=== PATIENT | female | born 1960 | race Caucasian/White ===

== ENCOUNTER 2020-01-10 08:14 | Outpatient (REF) | payer BC, SELFPAY ==
--- NOTE | 2020-01-10 09:00 | XR_ITS ---
EXAMINATION: XR CHEST CLINICAL INFORMATION: Dyspnea. COMPARISON: None TECHNIQUE: 2 views of the chest were obtained. FINDINGS: The lungs are clear. The heart and mediastinal structures are unremarkable. Mild thoracic dextroscoliosis is noted. XR/XR chest 2V IMPRESSION: No acute cardiopulmonary process.
[2020-01-10 09:35] LABS: MANUAL DIFF FLAG NO
[2020-01-10 09:43] LABS: Basophils Absolute Auto 0.1 X10*3/uL (0.0-0.2); Eosinophils Absolute Auto 0.1 X10*3/uL (0.0-0.4); Hematocrit 46.3 % (37-47); Hemoglobin 15.2 g/dl (12.0-16.0); Imm Gran Abs Auto 0.01 X10*3/uL (0.00-0.03); Imm Gran Pct Auto 0.2 % (0.0-0.4); Lymphocytes Percent Auto 38.8 % (20-40); Mean Corpuscular HGB Conc 32.8 g/dl (31.0-35.0); Mean Corpuscular Hemoglobin 28.7 pg (27.0-33.0); Mean Corpuscular Volume 87.5 fL (80-98); Mean Platelet Volume 11.5 fL (9.4-12.3); Monocytes Absolute Auto 0.3 X10*3/uL (0.1-1.2); Monocytes Percent Auto 6.4 % (2-11); Neutrophils Absolute Auto 2.6 X10*3/uL (2.0-8.3); Neutrophils Percent Auto 51.6 % (45-73); Platelet Count 189 X10*3/uL (160-400); Red Blood Count 5.29 X10*6/uL (4.20-5.50); Red Cell Distribution Width 12.8 % (11.0-16.0)
[2020-01-10 10:06] LABS: Alanine Aminotransferase 18 U/L (0-31); Albumin Level 4.8 g/dL (3.5-5.0); Alkaline Phosphatase 79 U/L (39-117); Anion Gap 11 (12-20); Aspartate Amino Transferase 19 U/L (5-31); B Type Natriuretic Peptide 26 pg/mL (<100); Blood Urea Nitrogen 14 mg/dL (9-16); Calcium 9.2 mg/dL (8.4-10.2); Carbon Dioxide 29 mmol/L (22-29); Chloride 104 mmol/L (96-108); Cholesterol 213 mg/dL; Estimated Glomerular Filt Rate > 60; Glucose Fasting 87 mg/dL (60-99); HDL Cholesterol 73 mg/dL; LDL Cholesterol Calculated 119 mg/dl; Potassium 4.5 mmol/l (3.3-5.1); Sodium 139 mmol/L (135-145); Triglycerides 106 mg/dL
[2020-01-10 10:29] LABS: TSH reflex Free T4 2.52 mIU/mL (0.32-4.0)
[2020-01-10 10:52] LABS: Glucose Urine UA NEG (NEG); Leukocyte Esterase Urine NEG (NEG); Nitrite Urine NEG (NEG); Specific Gravity - Urine 1.015 (1.005-1.025); Urine Blood NEG (NEG); Urine Ketones NEG (NEG); Urine Protein NEG (NEG-TRACE)
[2020-01-10 10:57] LABS: Appearance Urine CLEAR; Color Urine YELLOW
== END 2020-01-10 08:15 | disposition home or self-care (01) ==
LOC: HO.LAB 08:14
PROVIDERS: PCP Internal Medicine; Visit Provider Internal Medicine
DX: R06.00 Dyspnea, unspecified (principal); E78.00 Pure hypercholesterolemia, unspecified
CPT/HCPCS: 36415; 71046; 80053; 80061; 81003; 83880; 84443; 85025

== ENCOUNTER 2020-02-03 07:58 | Outpatient (REF) | payer BC, SELFPAY ==
--- NOTE | 2020-02-03 | PFT_ITS ---
Forced vital capacity, FEV1, PJS55-01 are all normal. MVV is slightly decreased. After bronchodilator therapy, there is no significant change. Total lung capacity and residual volume are normal. Diffusion capacity normal. CONCLUSION: Normal pulmonary function test. MD MARCO Del Valle/JAYA / [id number]
== END 2020-02-03 07:59 | disposition home or self-care (01) ==
LOC: HO.RESP 07:58
PROVIDERS: PCP Internal Medicine; Visit Provider Internal Medicine
DX: R06.00 Dyspnea, unspecified (principal)
CPT/HCPCS: 94060; 94727; 94729

== ENCOUNTER 2020-03-18 15:21 | Outpatient (REF) | payer BC, SELFPAY ==
[2020-03-18 18:11] LABS: Alanine Aminotransferase 19 U/L (0-31); Albumin Level 4.7 g/dL (3.5-5.0); Alkaline Phosphatase 79 U/L (39-117); Anion Gap 13 (12-20); Aspartate Amino Transferase 19 U/L (5-31); Bilirubin Total 0.7 mg/dL (0.0-1.0); Blood Urea Nitrogen 13 mg/dL (9-16); Carbon Dioxide 29 mmol/L (22-29); Chloride 101 mmol/L (96-108); Cholesterol 203 mg/dL; Estimated Glomerular Filt Rate > 60; Glucose Fasting 91 mg/dL (60-99); HDL Cholesterol 70 mg/dL; LDL Cholesterol Calculated 111 mg/dl; Potassium 4.3 mmol/l (3.3-5.1); Sodium 139 mmol/L (135-145); Total Protein 6.9 g/dL (6.5-8.0); Triglycerides 111 mg/dL
== END 2020-03-18 15:22 | disposition home or self-care (01) ==
LOC: HO.LAB 15:21
PROVIDERS: PCP Internal Medicine; Visit Provider Internal Medicine Pulmonary Disease
DX: R06.00 Dyspnea, unspecified (principal); E78.00 Pure hypercholesterolemia, unspecified; Z87.891 Personal history of nicotine dependence
CPT/HCPCS: 36415; 80053; 80061; 82785; 86003

== ENCOUNTER 2020-03-26 08:45 | Outpatient (REF) | payer BC, SELFPAY ==
--- NOTE | 2020-03-26 17:40 | PFT_ITS ---
SPIROMETRY BEFORE METHACHOLINE CHALLENGE TEST: Shows FEV1 of 90% of predicted at 2.64 L, FVC 94% of predicted at 3.58 L. FEV1 to FVC ratio of 0.74. There has been no bronchodilator response. METHACHOLINE CHALLENGE TEST: No significant decrease in FEV1 with administration of full range of methacholine concentration. IMPRESSION: Normal methacholine challenge test. MD COLLETTE Herr/JAYA / [id number]
== END 2020-03-26 08:46 | disposition home or self-care (01) ==
LOC: HO.RESP 08:45
PROVIDERS: PCP Internal Medicine; Visit Provider Internal Medicine Pulmonary Disease
DX: R06.00 Dyspnea, unspecified (principal)
CPT/HCPCS: 94070; J7674

== ENCOUNTER → 2020-04-03 09:07 | Outpatient (BNVA) | payer BC, SELFPAY | PROVIDERS: PCP Internal Medicine; Visit Provider Internal Medicine Pulmonary Disease ==

== ENCOUNTER 2020-05-27 08:38 | Outpatient (REF) | payer BC, SELFPAY ==
[2020-05-27 09:42] LABS: MANUAL DIFF FLAG NO
[2020-05-27 09:48] LABS: Basophils Absolute Auto 0.1 X10*3/uL (0.0-0.2); Basophils Percent Auto 0.9 % (0-2); Eosinophils Absolute Auto 0.1 X10*3/uL (0.0-0.4); Eosinophils Percent Auto 1.8 % (0-4); Hematocrit 45.9 % (37-47); Hemoglobin 14.4 g/dl (12.0-16.0); Imm Gran Abs Auto 0.01 X10*3/uL (0.00-0.03); Imm Gran Pct Auto 0.2 % (0.0-0.4); Lymphocytes Absolute Auto 2.1 X10*3/uL (1.2-4.9); Lymphocytes Percent Auto 38.5 % (20-40); Mean Corpuscular HGB Conc 31.4 g/dl (31.0-35.0); Mean Corpuscular Hemoglobin 27.6 pg (27.0-33.0); Mean Corpuscular Volume 88.1 fL (80-98); Mean Platelet Volume 11.2 fL (9.4-12.3); Monocytes Absolute Auto 0.5 X10*3/uL (0.1-1.2); Monocytes Percent Auto 8.9 % (2-11); Neutrophils Absolute Auto 2.7 X10*3/uL (2.0-8.3); Neutrophils Percent Auto 49.7 % (45-73); Platelet Count 196 X10*3/uL (160-400); Red Blood Count 5.21 X10*6/uL (4.20-5.50); Red Cell Distribution Width 12.9 % (11.0-16.0); White Blood Count 5.5 X10*3/uL (4.8-10.8)
[2020-05-27 10:10] LABS: Alanine Aminotransferase 18 U/L (0-31); Albumin Level 4.6 g/dL (3.5-5.0); Alkaline Phosphatase 88 U/L (39-117); Anion Gap 14 (12-20); Aspartate Amino Transferase 21 U/L (5-31); Bilirubin Total 1.1 mg/dL (0.0-1.0); Blood Urea Nitrogen 12 mg/dL (9-16); Calcium 9.4 mg/dL (8.4-10.2); Carbon Dioxide 29 mmol/L (22-29); Chloride 105 mmol/L (96-108); Cholesterol 213 mg/dL; Estimated Glomerular Filt Rate 57; Glucose Fasting 97 mg/dL (60-99); HDL Cholesterol 66 mg/dL; LDL Cholesterol Calculated 124 mg/dl; Potassium 4.6 mmol/L (3.3-5.1); Sodium 143 mmol/L (135-145); Total Protein 6.8 g/dL (6.5-8.0); Triglycerides 117 mg/dL
[2020-05-27 10:33] LABS: TSH reflex Free T4 2.74 uIU/mL (0.32-4.0)
== END 2020-05-27 08:39 | disposition home or self-care (01) ==
LOC: HO.LAB 08:38
PROVIDERS: PCP Internal Medicine; Visit Provider Internal Medicine
DX: R06.00 Dyspnea, unspecified (principal); E78.00 Pure hypercholesterolemia, unspecified
CPT/HCPCS: 36415; 80053; 80061; 84443; 85025

== ENCOUNTER 2020-10-01 07:26 | Outpatient (REF) | payer BC, SELFPAY ==
[2020-10-01 09:37] LABS: Alanine Aminotransferase 17 U/L (0-31); Albumin Level 4.5 g/dL (3.5-5.0); Alkaline Phosphatase 106 U/L (39-117); Anion Gap 13 (12-20); Aspartate Amino Transferase 20 U/L (5-31); Bilirubin Total 0.9 mg/dL (0.0-1.0); Blood Urea Nitrogen 12 mg/dL (9-16); Calcium 9.6 mg/dL (8.4-10.2); Carbon Dioxide 29 mmol/L (22-29); Chloride 107 mmol/L (96-108); Cholesterol 210 mg/dL; Estimated Glomerular Filt Rate > 60; Glucose Fasting 91 mg/dL (60-99); HDL Cholesterol 73 mg/dL; LDL Cholesterol Calculated 122 mg/dl; Potassium 4.7 mmol/L (3.3-5.1); Sodium 144 mmol/L (135-145); Total Protein 6.9 g/dL (6.5-8.0); Triglycerides 76 mg/dL
[2020-10-01 09:58] LABS: TSH reflex Free T4 5.03 uIU/mL (0.32-4.0)
[2020-10-01 10:48] LABS: Free T4 (Free Thyroxine) 1.03 ng/dL (0.71-1.85)
== END 2020-10-01 07:27 | disposition home or self-care (01) ==
LOC: HO.LAB 07:26
PROVIDERS: PCP Internal Medicine; Visit Provider Internal Medicine
DX: E78.00 Pure hypercholesterolemia, unspecified (principal)
CPT/HCPCS: 36415; 80053; 80061; 84439; 84443

== ENCOUNTER → 2020-11-26 13:36 | Outpatient (BNVA) | payer BC, SELFPAY | PROVIDERS: Visit Provider Advanced Practice Midwife ==

== ENCOUNTER 2021-01-07 15:52 | Outpatient (REF) | payer BC, SELFPAY ==
--- NOTE | ~2021-01-07 | MM_ITS ---
EXAMINATION: MM SCREENING DIGITAL BREAST TOMOSYNTHESIS, BILATERAL CLINICAL INFORMATION: Screening. Asymptomatic. The lifetime risk of breast cancer based on the Tyrer-Cuzick Model is 14.3%. COMPARISON: Mammography: April 30, 2018 and studies dating back to November 08, 2011 TECHNIQUE: Digital breast tomosynthesis is performed in both the craniocaudal and mediolateral oblique views along with computer-aided detection (CAD). Synthesized 2D images are generated from the tomosynthesis. FINDINGS: The breasts are heterogeneously dense, which may obscure small masses (ACR BI-RADS breast composition Category c). There are no significant masses, abnormal calcifications, or other abnormalities. MM/MM tomosynthesis screening BI IMPRESSION: There are no significant changes from prior study. ASSESSMENT: BI-RADS 1: Negative RECOMMENDATION: Routine annual mammography screening. This patient's information was entered into a reminder system with a target due date for their next mammogram.
== END 2021-01-07 15:53 | disposition home or self-care (01) ==
LOC: HO.MAMMO 15:52
PROVIDERS: Visit Provider Internal Medicine
DX: Z12.31 Encounter for screening mammogram for malignant neoplasm of breast (principal)
CPT/HCPCS: 77063; 77067

== ENCOUNTER 2021-02-02 11:38 | Outpatient (REF) | payer BC, SELFPAY ==
[2021-02-02 12:42] LABS: Influenza A PCR NEGATIVE (Negative); Influenza B PCR NEGATIVE (Negative); Resp Syncy Virus RNA Qual PCR NEGATIVE (Negative); SARS COV2 PCR INHOUSE NEGATIVE (Negative)
== END 2021-02-02 11:39 | disposition home or self-care (01) ==
LOC: HO.LNP 11:38
PROVIDERS: Visit Provider Hospitalist
DX: R06.00 Dyspnea, unspecified (principal); J98.8 Other specified respiratory disorders; B97.89 Other viral agents as the cause of diseases classified elsewhere; Z20.822 Contact with and (suspected) exposure to COVID-19
CPT/HCPCS: 0241U

== ENCOUNTER 2021-02-26 07:54 | Outpatient (REF) | payer BC, SELFPAY ==
[2021-02-26 08:06] LABS: MANUAL DIFF FLAG NO
[2021-02-26 08:08] LABS: Basophils Absolute Auto 0.1 X10*3/uL (0.0-0.2); Basophils Percent Auto 1.2 % (0-2); Eosinophils Absolute Auto 0.2 X10*3/uL (0.0-0.4); Eosinophils Percent Auto 3.5 % (0-4); Hematocrit 45.6 % (37.0-47.0); Hemoglobin 14.8 g/dl (12.0-16.0); Imm Gran Abs Auto 0.01 X10*3/uL (0.00-0.03); Imm Gran Pct Auto 0.2 % (0.0-0.4); Lymphocytes Absolute Auto 2.4 X10*3/uL (1.2-4.9); Mean Corpuscular HGB Conc 32.5 g/dl (31.0-35.0); Mean Corpuscular Hemoglobin 28.1 pg (27.0-33.0); Mean Corpuscular Volume 86.5 fL (80.0-98.0); Mean Platelet Volume 10.6 fL (9.4-12.3); Monocytes Absolute Auto 0.4 X10*3/uL (0.1-1.2); Monocytes Percent Auto 6.6 % (2-11); Neutrophils Absolute Auto 2.7 x10*3/uL (2.0-8.3); Neutrophils Percent Auto 46.5 % (45-73); Platelet Count 193 X10*3/uL (160-400); Red Blood Count 5.27 X10*6/uL (4.20-5.50); Red Cell Distribution Width 13.4 % (11.0-16.0); White Blood Count 5.7 X10*3/uL (4.8-10.8)
[2021-02-26 08:27] LABS: Alanine Aminotransferase 18 U/L (0-31); Albumin Level 4.6 g/dL (3.5-5.0); Alkaline Phosphatase 100 U/L (39-117); Anion Gap 12 (12-20); Aspartate Amino Transferase 20 U/L (5-31); Bilirubin Total 1.3 mg/dL (0.0-1.0); Blood Urea Nitrogen 16 mg/dL (9-16); Calcium 9.7 mg/dL (8.4-10.2); Carbon Dioxide 28 mmol/L (22-29); Chloride 104 mmol/L (96-108); Cholesterol 285 mg/dL; Estimated Glomerular Filt Rate > 60; Glucose Fasting 83 mg/dL (60-99); HDL Cholesterol 77 mg/dL; LDL Cholesterol Calculated 191 mg/dl; Potassium 4.2 mmol/L (3.3-5.1); Sodium 140 mmol/L (135-145); Total Protein 6.9 g/dL (6.5-8.0); Triglycerides 89 mg/dL
[2021-02-26 08:46] LABS: TSH reflex Free T4 5.16 uIU/mL (0.32-4.0)
[2021-02-26 09:37] LABS: Free T4 (Free Thyroxine) 1.08 ng/dL (0.71-1.85)
[2021-03-01 16:26] LABS: Homocysteine 11.2 umol/L (<10.4)
== END 2021-02-26 07:55 | disposition home or self-care (01) ==
LOC: HO.LAB 07:54
PROVIDERS: PCP Internal Medicine; Visit Provider Internal Medicine
DX: E78.00 Pure hypercholesterolemia, unspecified (principal); J30.9 Allergic rhinitis, unspecified
CPT/HCPCS: 36415; 80053; 80061; 83090; 84439; 84443; 85025

== ENCOUNTER 2021-03-25 12:36 | Outpatient (REF) | payer BC, SELFPAY ==
--- NOTE | ~2021-03-25 | XR_ITS ---
EXAMINATION: XR KNEE, LEFT XR KNEE STANDING, BILATERAL CLINICAL INFORMATION: Pain. COMPARISON: None TECHNIQUE: Standing AP view of both knees and lateral and sunrise view of the left knee. FINDINGS: LEFT KNEE: Bone alignment is normal. No fracture or dislocation is seen. There are small osteophytes at the medial femorotibial joint. Joint spaces are otherwise normal. There is no joint effusion. There is a small soft tissue calcification projecting over the lateral patellar retinaculum. Standing AP view of the right knee is normal. XR/XR knee standing BI IMPRESSION: Left knee: Small osteophytes at the medial femorotibial joint. Small soft tissue calcification projecting over the lateral patellar retinaculum. Normal AP standing view of the right knee.
--- NOTE | ~2021-03-25 | XR_ITS ---
EXAMINATION: XR KNEE, LEFT XR KNEE STANDING, BILATERAL CLINICAL INFORMATION: Pain. COMPARISON: None TECHNIQUE: Standing AP view of both knees and lateral and sunrise view of the left knee. FINDINGS: LEFT KNEE: Bone alignment is normal. No fracture or dislocation is seen. There are small osteophytes at the medial femorotibial joint. Joint spaces are otherwise normal. There is no joint effusion. There is a small soft tissue calcification projecting over the lateral patellar retinaculum. Standing AP view of the right knee is normal. XR/XR knee LT 2V IMPRESSION: Left knee: Small osteophytes at the medial femorotibial joint. Small soft tissue calcification projecting over the lateral patellar retinaculum. Normal AP standing view of the right knee.
== END 2021-03-25 12:37 | disposition home or self-care (01) ==
LOC: HO.HOSX 12:36
PROVIDERS: Visit Provider Physician Assistant
DX: M25.562 Pain in left knee (principal); M17.12 Unilateral primary osteoarthritis, left knee; E78.00 Pure hypercholesterolemia, unspecified; Z87.891 Personal history of nicotine dependence; Z88.8 Allergy status to other drugs, medicaments and biological substances
CPT/HCPCS: 20610; 73560; 73565; J1040

== ENCOUNTER 2021-04-26 11:25 | Outpatient (REF) | payer BC, SELFPAY | END 2021-04-26 11:26 | disposition home or self-care (01) | LOC: HO.LNP 11:25 | PROVIDERS: Visit Provider Family Medicine | DX: R51.9 Headache, unspecified (principal); Z20.822 Contact with and (suspected) exposure to COVID-19 | CPT/HCPCS: U0003; U0005 ==

== ENCOUNTER 2021-06-29 08:06 | Outpatient (REF) | payer BC, SELFPAY ==
[2021-06-29 08:24] LABS: MANUAL DIFF FLAG NO
[2021-06-29 08:53] LABS: Basophils Absolute Auto 0.1 X10*3/uL (0.0-0.2); Basophils Percent Auto 1.2 % (0-2); Eosinophils Absolute Auto 0.1 X10*3/uL (0.0-0.4); Eosinophils Percent Auto 2.3 % (0-4); Hematocrit 43.5 % (37.0-47.0); Hemoglobin 13.9 g/dl (12.0-16.0); Imm Gran Abs Auto 0.01 X10*3/uL (0.00-0.03); Imm Gran Pct Auto 0.2 % (0.0-0.4); Lymphocytes Absolute Auto 2.1 X10*3/uL (1.2-4.9); Lymphocytes Percent Auto 37.2 % (20-40); Mean Corpuscular Volume 87.7 fL (80.0-98.0); Mean Platelet Volume 11.1 fL (9.4-12.3); Monocytes Absolute Auto 0.4 X10*3/uL (0.1-1.2); Monocytes Percent Auto 6.7 % (2-11); Neutrophils Percent Auto 52.4 % (45-73); Platelet Count 176 X10*3/uL (160-400); Red Blood Count 4.96 X10*6/uL (4.20-5.50); Red Cell Distribution Width 13.8 % (11.0-16.0); White Blood Count 5.6 X10*3/uL (4.8-10.8)
[2021-06-29 09:29] LABS: Alanine Aminotransferase 15 U/L (0-31); Albumin Level 4.4 g/dL (3.5-5.0); Alkaline Phosphatase 79 U/L (39-117); Anion Gap 13 (12-20); Aspartate Amino Transferase 19 U/L (5-31); Bilirubin Total 1.2 mg/dL (0.0-1.0); Blood Urea Nitrogen 11 mg/dL (9-16); Calcium 9.7 mg/dL (8.4-10.2); Carbon Dioxide 28 mmol/L (22-29); Chloride 106 mmol/L (96-108); Cholesterol 223 mg/dL; Estimated Glomerular Filt Rate > 60; Glucose Fasting 90 mg/dL (60-99); HDL Cholesterol 76 mg/dL; LDL Cholesterol Calculated 125 mg/dl; Potassium 4.5 mmol/L (3.3-5.1); Sodium 142 mmol/L (135-145); Total Protein 6.7 g/dL (6.5-8.0); Triglycerides 112 mg/dL
[2021-06-29 10:01] LABS: Free T4 (Free Thyroxine) 0.93 ng/dL (0.71-1.85); Thyroid Stimulating Hormone 3.11 uIU/mL (0.32-4.0)
== END 2021-06-29 08:07 | disposition home or self-care (01) ==
LOC: HO.LAB 08:06
PROVIDERS: PCP Internal Medicine; Visit Provider Internal Medicine
DX: E78.00 Pure hypercholesterolemia, unspecified (principal); R79.89 Other specified abnormal findings of blood chemistry; E55.9 Vitamin D deficiency, unspecified; I10 Essential (primary) hypertension
CPT/HCPCS: 36415; 80053; 80061; 82306; 84439; 84443; 85025

== ENCOUNTER 2021-08-12 07:12 | Outpatient (REF) | payer BC, SELFPAY ==
--- NOTE | ~2021-08-12 | XR_ITS ---
EXAMINATION: XR KNEE, RIGHT CLINICAL INFORMATION: Right knee pain COMPARISON: None TECHNIQUE: Four views of the right knee. FINDINGS: Lateral and sunrise views reveal mild loss of patellofemoral compartment joint space with minimal suprapatellar joint effusion. No loose bodies, bony erosive changes or acute fractures seen. XR/XR knee RT 2V IMPRESSION: Mild degenerative changes patellofemoral compartment. No visible acute fracture or dislocation seen.
== END 2021-08-12 07:13 | disposition home or self-care (01) ==
LOC: HO.HOSX 07:12
PROVIDERS: Visit Provider Physician Assistant
DX: M17.0 Bilateral primary osteoarthritis of knee (principal)
CPT/HCPCS: 20610; 73560; J1040

== ENCOUNTER 2022-01-13 15:47 | Outpatient (REF) | payer BC, SELFPAY ==
--- NOTE | ~2022-01-13 | MM_ITS ---
EXAMINATION: MM SCREENING DIGITAL BREAST TOMOSYNTHESIS, BILATERAL CLINICAL INFORMATION: Screening. Asymptomatic. The lifetime risk of breast cancer based on the Tyrer-Cuzick Model is 14.1%. COMPARISON: Mammography: July 07, 2020 and studies dating back to August 04, 2015 TECHNIQUE: Digital breast tomosynthesis is performed in both the craniocaudal and mediolateral oblique views along with computer-aided detection (CAD). Synthesized 2D images are generated from the tomosynthesis. FINDINGS: The breasts are heterogeneously dense, which may obscure small masses (ACR BI-RADS breast composition Category c). There are no new significant masses, abnormal calcifications, or other abnormalities. MM/MM tomosynthesis screening BI IMPRESSION: No significant changes from prior exam. ASSESSMENT: BI-RADS 1: Negative RECOMMENDATION: Routine annual mammography screening. This patient's information was entered into a reminder system with a target due date for their next mammogram.
== END 2022-01-13 15:48 | disposition home or self-care (01) ==
LOC: HO.MAMMO 15:47
PROVIDERS: PCP Internal Medicine; Visit Provider Internal Medicine
DX: Z12.31 Encounter for screening mammogram for malignant neoplasm of breast (principal)
CPT/HCPCS: 77063; 77067

== ENCOUNTER 2022-03-16 08:04 | Outpatient (REF) | payer BC, SELFPAY ==
[2022-03-16 09:32] LABS: Alanine Aminotransferase 15 U/L (0-31); Albumin Level 4.5 g/dL (3.5-5.0); Alkaline Phosphatase 84 U/L (39-117); Anion Gap 12 (12-20); Aspartate Amino Transferase 18 U/L (5-31); Blood Urea Nitrogen 12 mg/dL (9-16); Calcium 9.6 mg/dL (8.4-10.2); Carbon Dioxide 29 mmol/L (22-29); Chloride 106 mmol/L (96-108); Cholesterol 220 mg/dL; Estimated Glomerular Filt Rate > 60; Glucose Fasting 95 mg/dL (60-99); HDL Cholesterol 70 mg/dL; LDL Cholesterol Calculated 129 mg/dl; Potassium 4.1 mmol/L (3.3-5.1); Sodium 143 mmol/L (135-145); Total Protein 6.7 g/dL (6.5-8.0); Triglycerides 105 mg/dL
[2022-03-16 09:50] LABS: Free T4 (Free Thyroxine) 0.91 ng/dL (0.71-1.85); Thyroid Stimulating Hormone 5.44 uIU/mL (0.32-4.0); Vitamin D 25-OH Total 33.3 ng/mL (>30)
== END 2022-03-16 08:05 | disposition home or self-care (01) ==
LOC: HO.LAB 08:04
PROVIDERS: PCP Internal Medicine; Visit Provider Internal Medicine
DX: E03.9 Hypothyroidism, unspecified (principal); E78.00 Pure hypercholesterolemia, unspecified; E55.9 Vitamin D deficiency, unspecified
CPT/HCPCS: 36415; 80053; 80061; 82306; 84439; 84443

== ENCOUNTER → 2022-04-01 08:24 | Outpatient (BNVA) | payer BC, SELFPAY | PROVIDERS: PCP Internal Medicine; Visit Provider Physician Assistant | DX: M17.12 Unilateral primary osteoarthritis, left knee (principal); M17.11 Unilateral primary osteoarthritis, right knee | CPT/HCPCS: 20610; J1040 ==

== ENCOUNTER 2022-07-20 07:49 | Outpatient (REF) | payer BC, SELFPAY ==
[2022-07-20 08:01] LABS: MANUAL DIFF FLAG NO
[2022-07-20 08:20] LABS: Basophils Absolute Auto 0.1 X10*3/uL (0.0-0.2); Basophils Percent Auto 1.3 % (0-2); Eosinophils Absolute Auto 0.1 X10*3/uL (0.0-0.4); Eosinophils Percent Auto 1.4 % (0-4); Hematocrit 43.6 % (37.0-47.0); Hemoglobin 14.3 g/dl (12.0-16.0); Imm Gran Abs Auto 0.01 X10*3/uL (0.00-0.03); Imm Gran Pct Auto 0.2 % (0.0-0.4); Lymphocytes Absolute Auto 2.3 X10*3/uL (1.2-4.9); Lymphocytes Percent Auto 41.7 % (20-40); Mean Corpuscular HGB Conc 32.8 g/dl (31.0-35.0); Mean Corpuscular Hemoglobin 28.8 pg (27.0-33.0); Mean Corpuscular Volume 87.9 fL (80.0-98.0); Mean Platelet Volume 11.3 fL (9.4-12.3); Monocytes Absolute Auto 0.4 X10*3/uL (0.1-1.2); Monocytes Percent Auto 7.2 % (2-11); Neutrophils Absolute Auto 2.7 x10*3/uL (2.0-8.3); Neutrophils Percent Auto 48.2 % (45-73); Platelet Count 192 X10*3/uL (160-400); Red Blood Count 4.96 X10*6/uL (4.20-5.50); Red Cell Distribution Width 13.5 % (11.0-16.0); White Blood Count 5.5 X10*3/uL (4.8-10.8)
[2022-07-20 08:56] LABS: Alanine Aminotransferase 14 U/L (0-31); Albumin Level 4.6 g/dL (3.5-5.0); Alkaline Phosphatase 95 U/L (39-117); Anion Gap 14 (12-20); Aspartate Amino Transferase 18 U/L (5-31); Bilirubin Total 1.5 mg/dL (0.0-1.0); Blood Urea Nitrogen 19 mg/dL (9-16); Calcium 9.6 mg/dL (8.4-10.2); Carbon Dioxide 25 mmol/L (22-29); Chloride 106 mmol/L (96-108); Cholesterol 224 mg/dL; Estimated Glomerular Filt Rate > 60; Glucose Fasting 81 mg/dL (60-99); HDL Cholesterol 71 mg/dL; LDL Cholesterol Calculated 132 mg/dl; Potassium 4.4 mmol/L (3.3-5.1); Sodium 141 mmol/L (135-145); Triglycerides 107 mg/dL
[2022-07-20 09:14] LABS: Free T4 (Free Thyroxine) 0.97 ng/dL (0.71-1.85); Thyroid Stimulating Hormone 6.13 uIU/mL (0.32-4.0); Vitamin D 25-OH Total 36.6 ng/mL (>30)
== END 2022-07-20 07:50 | disposition home or self-care (01) ==
LOC: HO.LAB 07:49
PROVIDERS: PCP Internal Medicine; Visit Provider Internal Medicine
DX: E78.00 Pure hypercholesterolemia, unspecified (principal); E03.9 Hypothyroidism, unspecified; E55.9 Vitamin D deficiency, unspecified; I10 Essential (primary) hypertension
CPT/HCPCS: 36415; 80053; 80061; 82306; 84439; 84443; 85025

== ENCOUNTER 2022-08-24 16:36 | Outpatient (REF) | payer BC, SELFPAY ==
--- NOTE | ~2022-08-24 | XR_ITS ---
EXAMINATION: XR HIP, RIGHT CLINICAL INFORMATION: Pain. COMPARISON: None available. TECHNIQUE: AP and frog-leg lateral views of the right hip. FINDINGS: No fracture. Alignment is anatomic. Hip joint space is maintained. Soft tissues are unremarkable. XR/XR hip RT min 2V IMPRESSION: Normal right hip.
== END 2022-08-24 16:37 | disposition home or self-care (01) ==
LOC: HO.XRAY 16:36
PROVIDERS: PCP Internal Medicine; Visit Provider Internal Medicine
DX: M25.551 Pain in right hip (principal)
CPT/HCPCS: 73502

== ENCOUNTER 2022-10-21 07:48 | Outpatient (REF) | payer BC, SELFPAY ==
[2022-10-21 09:12] LABS: Alanine Aminotransferase 14 U/L (0-31); Albumin Level 4.5 g/dL (3.5-5.0); Alkaline Phosphatase 86 U/L (39-117); Anion Gap 14 (12-20); Aspartate Amino Transferase 18 U/L (5-31); Bilirubin Total 0.9 mg/dL (0.0-1.0); Blood Urea Nitrogen 19 mg/dL (9-16); Calcium 9.8 mg/dL (8.4-10.2); Carbon Dioxide 27 mmol/L (22-29); Chloride 107 mmol/L (96-108); Cholesterol 234 mg/dL (<200); Estimated Glomerular Filt Rate > 60; Glucose Fasting 90 mg/dL (60-99); HDL Cholesterol 73 mg/dL (>40); LDL Cholesterol Calculated 140 mg/dL (<100); Potassium 4.2 mmol/L (3.3-5.1); Sodium 144 mmol/L (135-145); Total Protein 7.1 g/dL (6.5-8.0); Triglycerides 106 mg/dL (<150)
[2022-10-21 09:33] LABS: Free T4 (Free Thyroxine) 1.13 ng/dL (0.71-1.85); Thyroid Stimulating Hormone 0.85 uIU/mL (0.32-4.0)
== END 2022-10-21 07:49 | disposition home or self-care (01) ==
LOC: HO.LAB 07:48
PROVIDERS: PCP Internal Medicine; Visit Provider Internal Medicine
DX: E03.9 Hypothyroidism, unspecified (principal); E78.00 Pure hypercholesterolemia, unspecified
CPT/HCPCS: 36415; 80053; 80061; 84439; 84443

== ENCOUNTER 2022-10-24 07:00 | Outpatient (RCR) | payer BC, SELFPAY ==
--- NOTE | 2022-10-14 09:09 | MHC.PT.EP ---
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 Pt exhibits tight hip flexors, impaired strength hip abductors, weak core/ hip extensors. Pt expressing onset of sx which began the past few months gradually. Pt currently expressing intolerance for R SL position and getting comfortable for sleep but states is able to complete stairs and daily ADLS with minimal discomfort expressed. Would liked to improve strength or core and hips and advance tolerance to resume recreational pickleball play without concern for worsening of sx. Pt would benefit from attending skilled PT services at a frequency of 2x/week x 4-6 weeks to address impairments, implement HEP, and restore functional mobility to resume PLOF. Rehab prognosis is excellent. Frequency and Duration: The patient will be seen 2x/week x 4 weeks Short Term Goals: 1. Reduce lateral hip pain by 25%. 2. Initiate self care program for R hip. 3. Negative Nas test for R psoas. 4. Improve strength L hip abd 4+/5. 5. Perform bridge MOD I no sx lumbar/ R hip. 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 I HEP. 2. Resume recreational pickleball playing sx <2/10 R hip. 3. Walk 2 miles sx < 2/10 R hip. 4. Negative lumbar instability on R side. 5. Strength R hip ext 5/5. 6. Strength L hip abd 5/5. 7. Sleep MOD I sx <2/10 R hip. Treatment Plan: Modalities to reduce pain, spasms and effusion. Manual therapy to restore motion and function. Therapeutic exercise to improve strength and flexibility. Neuromuscular re-education for posture and balance. Therapeutic activities to return to functional activities of daily living. Electronically signed by: Micheline Moctezuma PT, DPT Please sign and return to therapist. Thank you for your referral.
== END 2023-04-07 09:44 | disposition home or self-care (01) ==
LOC: HO.PTWFD 07:00
PROVIDERS: PCP Internal Medicine; Visit Provider Nurse Practitioner Family
DX: M25.551 Pain in right hip (principal)
CPT/HCPCS: 97110; 97140; 97150; 97161; 97535

== ENCOUNTER 2022-10-26 15:58 | Outpatient (AMB) | payer BC, SELFPAY ==
[2022-10-26 16:00] VITALS: BP 116/78; PULSE 59; O2SAT 97; BMI 24.6
--- NOTE | 2022-10-26 16:00 | A.OFFPC_ITS ---
Vital Signs 10/26/22 16:00 Height 5 ft 8 in Weight 162 lb BMI 24.6 BP 116/78 Blood Pressure Location Lt brachial Position Sitting Pulse 59 Pulse Source Pulse Oximeter Pulse Oximetry (%) 97 Oxygen Delivery Method Room Air Intake Visit Reasons: hyperlipidemia Finger Cobbler Required: No Accompanied by: Self / Same As Patient Allergies doxycycline Allergy (Severe, Verified 10/26/22 17:00) Hives atorvastatin Adverse Reaction (Intermediate, Verified 10/26/22 17:00) persistent aching in legs bandages Allergy (Severe, Uncoded 10/26/22 17:00) Rash Medication List - Last Reconciled 10/26/22 by Kirk Black MD fluticasone propionate 50 mcg/actuation 1 spray intranasal DAILY 30 days levothyroxine 25 mcg PO DAILY 90 days montelukast 10 mg PO DAILY 90 days rosuvastatin 5 mg PO DAILY Tobacco use date assessed: 10/26/22 Dental Screening Dental Screen Date: 10/26/22 Did you have a dental visit in the last 12 months?: Yes Did you have a dental problem in the last 6 months where you did not have access to dental care?: No Was dental information given to patient?: Patient has dentist HPI hyperlipidemia HPI Details Patient comes in today for her follow up visit States that she feels okay She denies any headaches or dizziness Denies any chest pains, no SOB No nausea/vomiting, no abdominal pain No change in bowel habits noted Needs her Montelukast Rx refilled Had her follow up labs done last week - to discuss her results FORMERLY [facility], [facility] Medical History (Updated 10/26/22 @ 19:26 by Kirk Black MD) Acquired hypothyroidism Airway hyperreactivity Allergic rhinitis Dyspnea Multiple nevi Osteoarthritis of both knees Pure hypercholesterolemia Vitamin D deficiency Surgical History History of tubal ligation Family History Father Stroke Diabetes Hypertension Mother Breast cancer Paternal Aunt Breast cancer Maternal Aunt Colon cancer Social History Housing: House Alcohol intake: current Alcohol intake frequency: holidays/special occasions only Patient Tobacco Use Status: Former Tobacco user e-Cigarette/Vaping Use: Never Used Second Hand Smoke Exposure: Yes service: No Current occupational status: employed Cognitive needs: No Hearing needs: No Vision needs: No Questionnaire PHQ-9 Over the last 2 weeks, how often have you been bothered by any of the following problems? 1. Little interest or pleasure in doing things: not at all 2. Feeling down, depressed, or hopeless: not at all 3. Trouble falling or staying asleep, or sleeping too much: not at all 4. Feeling tired or having little energy: not at all 5. Poor appetite or overeating: not at all 6. Feeling bad about yourself - or that you are a failure or have let yourself or your family down: not at all 7. Trouble concentrating on things, such as reading the newspaper or watching television: not at all 8. Moving or speaking so slowly that other people could have noticed. Or the opposite - being so fidgety or restless that you have been moving around a lot more than usual: not at all 9. Thoughts that you would be better off or of hurting yourself in some way: not at all Total score: 0 Depression Screening Interpretation: Negative 94017 - PHQ-9 Billing: Yes Source: Developed by Drs. King Goldman, Anastacia Wilkinson, Devan Titus and colleagues, with an educational oscar from [employer]. Thrive Questionnaire Date Thrive assessed: 10/26/22 I am a: Patient What is your living situation today?: I have a steady place to live Within the past 12 months, did the food you bought not last and you didn't have the money to get more?: Never true Within the past 12 months, did you worry whether your food would run out before you got money to buy more?: Never true Do you have trouble paying for medicines?: No Do you have trouble getting transportation to medical appointments?: No Do you have trouble paying your heating and electricity bill?: No Do you have trouble taking care of your child, family member or friend?: No Do you have trouble with day-to-day activities such as bathing, preparing meals, shopping, managing finances, etc.?: No Are you currently unemployed and looking for a job?: No Are you interested in more education?: No Please select the resources that you would like help with: None Currently or been in a relationship where the following occur: no concerns reported AUDIT C Alcohol Use Questionnaire (AUDIT-C) 1. How often do you have a drink containing alcohol?: Monthly or less 2. How many drinks containing alcohol do you have on a typical day when you are drinking?: 1 or 2 3. How often do you have six or more drinks on one occasion?: Never Total Score: 1 Score Reviewed/Action Taken: Yes JESUS-7 AMB Questionnaire JESUS-7 Date JESUS - 7 assessed: 10/26/22 Feeling nervous, anxious, or on edge: 0 = Not at all Not being able to stop or control worryin = Not at all Worrying too much about different things: 0 = Not at all Trouble relaxin = Not at all Being so restless that it is hard to sit still: 0 = Not at all Becoming easily annoyed or irritable: 0 = Not at all Feeling afraid as if something awful might happen: 0 = Not at all Total JESUS-7 score (0-4 normal; 5-9 mild; 10-14 moderate; 15-21 severe): 0 Source: Developed by Drs. King Goldman, Anastacia Wilkinson, Devan Titus and colleagues, with an educational oscar from [employer]. JESUS-7 Assessment Billing JESUS-7 Assessment Tool: JESUS-7 Assessment 68174 Review of Systems Const Denies fatigue, Denies fever(s) and Denies headache(s) ENT Denies dysphagia, Denies dizziness, Denies otalgia, Denies headache(s), Denies neck pain, Denies odynophagia and Denies sore throat Card Denies chest pain, Denies palpitations and Denies dyspnea Resp Denies cough and Denies dyspnea GI Denies abdominal pain, Denies constipation, Denies dysphagia, Denies heartburn, Denies diarrhea, Denies nausea, Denies odynophagia and Denies vomiting Denies difficulty voiding, Denies nocturia and Denies dysuria Musc Denies neck pain Neuro Denies dizziness and Denies headache(s) Endo Denies fatigue and Denies palpitations Physical exam (Primary Care) Vital Signs: Last Vital Signs Pulse 59 10/26/22 16:00 BP 116/78 10/26/22 16:00 Pulse Ox 97 10/26/22 16:00 Oxygen Delivery Method Room Air 10/26/22 16:00 BMI result Body Mass Index 24.6 Tobacco/Smoking Status: Tobacco use Status Tobacco use date assessed 10/26/22 10/26/22 16:02 Patient Tobacco Use Status Former Tobacco user 10/26/22 16:02 e-Cigarette/Vaping Use Never Used 10/26/22 16:02 PHQ-9: PHQ-9 Score PHQ-9: Total score 0 10/26/22 17:06 Depression Screening Interpretation: Negative Thrive Assessment: Date of Thrive Assessment Date Thrive assessed 10/26/22 10/26/22 16:02 Currently or been in a relationship where the following occur: no concerns reported Const General: no acute distress and alert HENMT Ears: TM's normal bilaterally and EAC's normal Throat: Yes posterior oropharynx normal and Yes tonsils normal (no TP congestion) Neck Neck: Yes no lymphadenopathy and Yes supple Thyroid: Thyroid normal Resp Auscultation: clear to auscultation bilaterally, no rales and no wheezes Cardio Rate: regular rate Rhythm: regular rhythm Heart sounds: no murmurs GI Palpation (GI): Soft to palpation and nontender Auscultation: normal bowel sounds Extrem General: Yes no clubbing, cyanosis or edema Results Reviewed Results Reviewed: Laboratory Tests 10/21/22 08:00 Sodium 144 Potassium 4.2 Creatinine 0.81 Estimated GFR > 60 Fasting Glucose 90 Calcium 9.8 AST 18 ALT 14 Triglycerides 106 Cholesterol 234 H LDL Cholesterol, Calc 140 H HDL Cholesterol 73 TSH 0.85 Free T4 1.13 Assessment and Plan Assessment & Plan (1) Pure hypercholesterolemia: Code(s): E78.00 - Pure hypercholesterolemia, unspecified Plan: Results of her labs done last week?reviewed and discussed with patient - cautioned that her LDL cholesterol level has increased slightly from previous and is now at 140 mg/dl Reinforced low cholesterol diet Continue Rosuvastatin 5 mg QD for now Will recheck her labs and fasting lipids in 4 months for follow-up Advised that we may need to go up on her dosage of her Rosuvastatin if her numbers do not improve significantly over the next few months (2) Acquired hypothyroidism: Code(s): E03.9 - Hypothyroidism, unspecified Plan: Advised that her TFTs have improved and normalized on her recent labs Will continue her for now on Levothyroxine 25 mcg QD Will recheck her LFTs in 4 months for follow up (3) Dyspnea: Comment: PFT done on 02/03/2020 at [facility] [place] came back completely normal; chest x-rays also came out normal Pulmonary evaluation/consultation revealed no pulmonary etiology for her dyspnea; Metacholine challenge test in 02/2020 was normal Code(s): R06.00 - Dyspnea, unspecified Qualifiers: Dyspnea type: unspecified Qualified Code(s): R06.00 - Dyspnea, unspecified Plan: States that her respiratory symptoms (dyspnea) have improved significantly since she was started on Montelukast 10 mg QD - Rx refilled Was seen by extrusion die template maker previously and diagnosed with possible hyperreactive airway Was initially started on Flovent HFA 110 mcg 1 inhalation BID but she again had the same issue of hoarseness as she did with Qvar in the past so she stopped using her inhalers; has had no problems so far with oral Montelukast Follow up with extrusion die template maker as scheduled or as needed (4) Allergic rhinitis: Code(s): J30.9 - Allergic rhinitis, unspecified Qualifiers: Allergic rhinitis seasonality: unspecified Allergic rhinitis trigger: unspecified Qualified Code(s): J30.9 - Allergic rhinitis, unspecified Plan: Continue Montelukast 10 mg QD - patient stopped using her nasal spray as it was casuing recurrent hoarseness (5) Vitamin D deficiency: Code(s): E55.9 - Vitamin D deficiency, unspecified Plan: Continue Vitamin D3 2000 units QD (6) Osteoarthritis of both knees: Code(s): M17.0 - Bilateral primary osteoarthritis of knee Qualifiers: Osteoarthritis type: primary Qualified Code(s): M17.0 - Bilateral primary osteoarthritis of knee Plan: Gets cortisone injection(s) from orthopedics when needed for symptomatic relief Follow up with orthopedics as scheduled (7) Right hip pain: Code(s): M25.551 - Pain in right hip Plan: X-rays of the right hip done a few months ago came our normal States that her right hip symptoms have been gradually improving with physical therapy Plan Follow up in 4 months Orders: Orders Comprehensive [place]. Panel Fast 4 Months E78.00 - Pure hypercholesterolemia, unspecified Lipid Panel 4 Months E78.00 - Pure hypercholesterolemia, unspecified Free T4 (Free Thyroxine) 4 Months E03.9 - Hypothyroidism, unspecified Thyroid Stimulating Hormone 4 Months E03.9 - Hypothyroidism, unspecified Vitamin D 25-OH Total 4 Months E55.9 - Vitamin D deficiency, unspecified Complete Blood Count Auto Diff 4 Months I10 - Essential (primary) hypertension UA CC w/rflx Micro + Cult 4 Months R30.0 - Dysuria Medications: Refilled montelukast 10 mg PO DAILY 90 tabs 1RF 90 days Coding Level of Care Code Est Pt Level 4 (22654) Diagnoses Pure hypercholesterolemia E78.00 Acquired hypothyroidism E03.9 Dyspnea R06.00 Dyspnea type: unspecified Allergic rhinitis J30.9 Allergic rhinitis seasonality: unspecified Allergic rhinitis trigger: unspecified Vitamin D deficiency E55.9 Osteoarthritis of both knees M17.0 Osteoarthritis type: primary Right hip pain M25.551 Additional Codes JESUS-7 Assessment Billing - JESUS-7 Assessment Tool: JESUS-7 Assessment [id number] ([id number])
== END 2022-10-26 17:09 | disposition home or self-care (01) ==
PROVIDERS: PCP Internal Medicine; Visit Provider Internal Medicine
DX: E78.00 Pure hypercholesterolemia, unspecified (principal); E03.9 Hypothyroidism, unspecified; E55.9 Vitamin D deficiency, unspecified; R06.00 Dyspnea, unspecified; J30.9 Allergic rhinitis, unspecified; M17.0 Bilateral primary osteoarthritis of knee; M25.551 Pain in right hip
CPT/HCPCS: 99214

== ENCOUNTER 2023-01-09 14:09 | Outpatient (AMB) | payer BC, SELFPAY ==
--- NOTE | 2023-01-09 14:12 | MHC.OFFVIS ---
Intake Vital Signs 01/09/23 14:17 Height 5 ft 8 in Weight 162 lb BMI 24.6 Intake Visit Reasons: OV, Bilateral knee inj, last inj was 03/2022 Intake Note: Araceli 62 yr old female presents today for her follow up visit S/P bilateral knee injection 03/2022. States injections helped and would like to repeat injections today. Allergies doxycycline Allergy (Severe, Verified 01/09/23 14:18) Hives atorvastatin Adverse Reaction (Intermediate, Verified 01/09/23 14:18) persistent aching in legs bandages Allergy (Severe, Uncoded 10/26/22 17:00) Rash HPI OV, Bilateral knee inj, last inj was 03/2022 HPI Details 62-year-old female who presents in the office today for a follow up of bilateral knee pain. The patient had cortisone injections in the bilateral knees on 04/01/2022. She reports the injections helped and she would like to repeat them in the office today. [facility] Medical History (Updated 01/09/23 @ 14:21 by Cat Sanchez) Acquired hypothyroidism Osteoarthritis of both knees Vitamin D deficiency Multiple nevi Allergic rhinitis Airway hyperreactivity Pure hypercholesterolemia Dyspnea Surgical History History of tubal ligation Family History Father Stroke Diabetes Hypertension Mother Breast cancer Paternal Aunt Breast cancer Maternal Aunt Colon cancer Social History Housing: House Alcohol intake: current Alcohol intake frequency: holidays/special occasions only Patient Tobacco Use Status: Former Tobacco user e-Cigarette/Vaping Use: Never Used Second Hand Smoke Exposure: Yes service: No Current occupational status: employed Cognitive needs: No Hearing needs: No Vision needs: No Review of Systems Const All systems reviewed & are unremarkable except as noted in HPI and below Physical Exam Vital Signs: BMI result Body Mass Index 24.6 Const General: cooperative, healthy appearing and no acute distress Resp Effort & Inspection: normal respiratory effort and able to speak in complete sentences Cardio Rate: regular rate Peripheral pulses: Peripheral pulses 2+ throughout GI Palpation (GI): Soft to palpation Skin Lesions: no lesions Rashes: no rashes Extrem Other: Bilateral knee: Normal to inspection. No ecchymosis or erythema.Mild to moderate effusion. No tenderness to palpation to the medial or lateral joint lines. Full knee extension and flexion. Mild crepitus felt wit ROM. Negative Zeeshan's. Negative anterior draw. NVI. Office Procedures Joint Injection/Drain Joint Injection/Drain Primary Site: right knee Secondary Site: left knee Prep: site was prepped using aseptic technique, ethochloride spray was applied and injection warnings given Injected: 80 mg of, DepoMedrol, with 8 mL of (2% plain lido ) and in the joint Approach Used: anterolateral Procedure: The patient tolerated the procedure well, but had some pain with the injection and there was some relief with the local anesthesia Coding 30310 - Large joint Procedure code (CPT) selection complete Results Reviewed Results Reviewed: 01/09/23 14:18 Lidocaine HCl 2 % MPF [Xylocaine 2 % MPF] 5 ml .ROUTE .STK-MED ONE methylPREDNISolone acetate [DEPO-MedroL] 80 mg .ROUTE .STK-MED ONE 01/09/23 14:27 Lidocaine HCl 2 % MPF [Xylocaine 2 % MPF] 5 ml .ROUTE .STK-MED ONE methylPREDNISolone acetate [DEPO-MedroL] 80 mg .ROUTE .STK-MED ONE Assessment & Plan Assessment & Plan (1) Osteoarthritis of left knee: Code(s): M17.12 - Unilateral primary osteoarthritis, left knee Qualifiers: Osteoarthritis type: unspecified Qualified Code(s): M17.12 - Unilateral primary osteoarthritis, left knee (2) Osteoarthritis of right knee: Code(s): M17.11 - Unilateral primary osteoarthritis, right knee Qualifiers: Osteoarthritis type: unspecified Qualified Code(s): M17.11 - Unilateral primary osteoarthritis, right knee Plan Ms. Moulton is a 62-year-old female who presents in the office today for a follow up of bilateral knee pain. The patient had cortisone injections in the bilateral knees on 04/01/2022. She reports the injections helped and she would like to repeat them in the office today. The patient was offered a cortisone injection in the bilateral knees. The patient was explained the risk, benefits, and alternatives to receiving this injection. After receiving consent for the injection, the patient had the procedure done while in office today. The patient tolerated the procedure well with no complications. Follow up will be PRN, or sooner if needed. Patient Instructions: Scribed for Pastora Lal PA-C by Cat Sanchez manager of medical, on 01/09/2023 at 2:21 pm, EST. Coding Level of Care Code Est Pt Level 3 (47979) Diagnoses Osteoarthritis of left knee, unspecified osteoarthritis type M17.12 Osteoarthritis type: unspecified Osteoarthritis of right knee, unspecified osteoarthritis type M17.11 Osteoarthritis type: unspecified CPT Codes Coding - 85390 Large joint: 34780 - Large joint ([id number])
[2023-01-09 14:17] VITALS: BMI 24.6
== END 2023-01-09 14:56 | disposition home or self-care (01) ==
PROVIDERS: PCP Internal Medicine; Visit Provider Physician Assistant
DX: M17.0 Bilateral primary osteoarthritis of knee (principal)
CPT/HCPCS: 20610

== ENCOUNTER → 2023-01-09 14:09 | Outpatient (BNVA) | payer BC, SELFPAY | PROVIDERS: PCP Internal Medicine; Visit Provider Physician Assistant | DX: M17.0 Bilateral primary osteoarthritis of knee (principal); E55.9 Vitamin D deficiency, unspecified | CPT/HCPCS: 20610; J1040 ==

== ENCOUNTER 2023-01-27 15:33 | Outpatient (REF) | payer BC, SELFPAY ==
--- NOTE | ~2023-01-27 | MM_ITS ---
EXAMINATION: MM SCREENING DIGITAL BREAST TOMOSYNTHESIS, BILATERAL CLINICAL INFORMATION: Screening. Asymptomatic. COMPARISON: Mammography: This study is compared with prior exams dating back to 2018. TECHNIQUE: Digital breast tomosynthesis is performed in both the craniocaudal and mediolateral oblique views along with computer-aided detection (CAD). Synthesized 2D images are generated from the tomosynthesis. FINDINGS: There are scattered areas of fibroglandular density (ACR BI-RADS breast composition Category b). There are no significant masses, abnormal calcifications, or other abnormalities. Few, unchanged, coarse, bilateral benign calcifications are present in each breast.. MM/MM tomosynthesis screening BI IMPRESSION: No mammographic evidence of malignancy. ASSESSMENT: BI-RADS BI-RADS 2 - Benign Findings RECOMMENDATION: Routine annual mammography screening. 1 year F/U This examination should not preclude the clinical evaluation of a suspicious palpable abnormality. This patient's information was entered into a reminder system with a target due date for their next mammogram.
== END 2023-01-27 15:34 | disposition home or self-care (01) ==
LOC: HO.MAMMO 15:33
PROVIDERS: PCP Internal Medicine; Visit Provider Internal Medicine
DX: Z12.31 Encounter for screening mammogram for malignant neoplasm of breast (principal)
CPT/HCPCS: 77063; 77067

== ENCOUNTER → 2023-01-27 15:45 | Outpatient (BNV) | payer BC, SELFPAY | PROVIDERS: PCP Internal Medicine; Visit Provider Radiology Diagnostic Radiology | DX: Z12.31 Encounter for screening mammogram for malignant neoplasm of breast (principal) | CPT/HCPCS: 77063; 77067 ==

== ENCOUNTER 2023-03-06 07:28 | Outpatient (REF) | payer BC, SELFPAY ==
[2023-03-06 08:28] LABS: Alanine Aminotransferase 18 U/L (0-31); Albumin Level 4.7 g/dL (3.5-5.0); Alkaline Phosphatase 90 U/L (39-117); Anion Gap 11 (12-20); Aspartate Amino Transferase 18 U/L (5-31); Bilirubin Total 0.6 mg/dL (0.0-1.0); Blood Urea Nitrogen 18 mg/dL (9-16); Calcium 9.8 mg/dL (8.4-10.2); Carbon Dioxide 29 mmol/L (22-29); Chloride 107 mmol/L (96-108); Cholesterol 249 mg/dL (<200); Estimated Glomerular Filt Rate > 60; Glucose Fasting 86 mg/dL (60-99); HDL Cholesterol 83 mg/dL (>40); LDL Cholesterol Calculated 152 mg/dL (<100); Potassium 4.5 mmol/L (3.3-5.1); Sodium 142 mmol/L (135-145); Total Protein 7.3 g/dL (6.5-8.0); Triglycerides 74 mg/dL (<150)
[2023-03-06 08:43] LABS: Free T4 (Free Thyroxine) 1.01 ng/dL (0.71-1.85); Thyroid Stimulating Hormone 5.63 uIU/mL (0.32-4.0); Vitamin D 25-OH Total 35.9 ng/mL (>30)
== END 2023-03-06 07:29 | disposition home or self-care (01) ==
LOC: HO.LAB 07:28
PROVIDERS: PCP Internal Medicine; Visit Provider Internal Medicine
DX: E78.00 Pure hypercholesterolemia, unspecified (principal); E03.9 Hypothyroidism, unspecified; I10 Essential (primary) hypertension; E55.9 Vitamin D deficiency, unspecified; R30.0 Dysuria
CPT/HCPCS: 36415; 80053; 80061; 81001; 82306; 84439; 84443; 85025; 87086

== ENCOUNTER 2023-03-08 15:59 | Outpatient (AMB) | payer BC, SELFPAY ==
[2023-03-08 16:01] VITALS: BP 120/76; PULSE 68; O2SAT 97; BMI 24.6
--- NOTE | 2023-03-08 16:01 | MHC.PC.OV ---
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 Accompanied by: Self / Same As Patient Allergies doxycycline Allergy (Severe, Verified 03/09/23 05:45) Hives atorvastatin Adverse Reaction (Intermediate, Verified 03/09/23 05:45) persistent aching in legs bandages Allergy (Severe, Uncoded 03/09/23 05:45) Rash Medication List - Last Reconciled 03/09/23 by Kirk Black MD fluticasone propionate 50 mcg/actuation 1 spray intranasal DAILY 30 days levothyroxine 25 mcg PO DAILY 90 days montelukast 10 mg PO DAILY 90 days rosuvastatin 5 mg PO DAILY Tobacco use date assessed: 03/08/23 Dental Screening Dental Screen Date: 03/08/23 Did you have a dental visit in the last 12 months?: Yes Did you have a dental problem in the last 6 months where you did not have access to dental care?: No Was dental information given to patient?: Patient has dentist HPI 5 month f/u HPI Details Patient comes in today for her follow up visit States that she feels okay She denies any headaches or dizziness Denies any chest pains, no shortness of breath No nausea / vomiting, no abdominal pain No change in bowel habits noted Patient states that she continues to experience recurrent right hip pain, and that this has been going on for months now States that she been to physical therapy few months ago - felt that physical therapy did help somewhat although her hip continues to bother her frequently Had x-rays of the right hip done a few months ago that came out normal Had her follow-up labs done a few days ago - to discuss her results [facility] Medical History Acquired hypothyroidism Osteoarthritis of both knees Vitamin D deficiency Multiple nevi Allergic rhinitis Airway hyperreactivity Pure hypercholesterolemia Dyspnea Surgical History History of tubal ligation Family History Father Stroke Diabetes Hypertension Mother Breast cancer Paternal Aunt Breast cancer Maternal Aunt Colon cancer Social History Housing: House Alcohol intake: current Alcohol intake frequency: holidays/special occasions only Patient Tobacco Use Status: Former Tobacco user e-Cigarette/Vaping Use: Never Used Second Hand Smoke Exposure: Yes service: No Current occupational status: employed Cognitive needs: No Hearing needs: No Vision needs: No Questionnaire PHQ-9 Over the last 2 weeks, how often have you been bothered by any of the following problems? 1. Little interest or pleasure in doing things: not at all 2. Feeling down, depressed, or hopeless: not at all 3. Trouble falling or staying asleep, or sleeping too much: not at all 4. Feeling tired or having little energy: not at all 5. Poor appetite or overeating: not at all 6. Feeling bad about yourself - or that you are a failure or have let yourself or your family down: not at all 7. Trouble concentrating on things, such as reading the newspaper or watching television: not at all 8. Moving or speaking so slowly that other people could have noticed. Or the opposite - being so fidgety or restless that you have been moving around a lot more than usual: not at all 9. Thoughts that you would be better off or of hurting yourself in some way: not at all Total score: 0 Depression Screening Interpretation: Negative Depression Screening Done: Yes 10834 - PHQ-9 Billing: Yes Source: Developed by Drs. King Goldman, Anastacia Wilkinson, Devan Titus and colleagues, with an educational oscar from [employer]. Thrive Questionnaire Date Thrive assessed: 03/08/23 I am a: Patient What is your living situation today?: I have a steady place to live Within the past 12 months, did the food you bought not last and you didn't have the money to get more?: Never true Within the past 12 months, did you worry whether your food would run out before you got money to buy more?: Never true Do you have trouble paying for medicines?: No Do you have trouble getting transportation to medical appointments?: No Do you have trouble paying your heating and electricity bill?: No Do you have trouble taking care of your child, family member or friend?: No Do you have trouble with day-to-day activities such as bathing, preparing meals, shopping, managing finances, etc.?: No Are you currently unemployed and looking for a job?: No Are you interested in more education?: No Please select the resources that you would like help with: None Currently or been in a relationship where the following occur: no concerns reported AUDIT C Alcohol Use Questionnaire (AUDIT-C) 1. How often do you have a drink containing alcohol?: Monthly or less 2. How many drinks containing alcohol do you have on a typical day when you are drinking?: 1 or 2 3. How often do you have six or more drinks on one occasion?: Never Total Score: 1 Score Reviewed/Action Taken: Yes JESUS-7 AMB Questionnaire JESUS-7 Date JESUS - 7 assessed: 03/08/23 Feeling nervous, anxious, or on edge: 0 = Not at all Not being able to stop or control worryin = Not at all Worrying too much about different things: 0 = Not at all Trouble relaxin = Not at all Being so restless that it is hard to sit still: 0 = Not at all Becoming easily annoyed or irritable: 0 = Not at all Feeling afraid as if something awful might happen: 0 = Not at all Total JESUS-7 score (0-4 normal; 5-9 mild; 10-14 moderate; 15-21 severe): 0 Source: Developed by Drs. King Goldman, Anastacia Wilkinson, Devan Titus and colleagues, with an educational oscar from [employer]. JESUS-7 Assessment Billing JESUS-7 Assessment Tool: JESUS-7 Assessment 58479 Review of Systems Const Denies fatigue, Denies fever(s) and Denies headache(s) ENT Denies dysphagia, Denies dizziness, Denies otalgia, Denies headache(s), Denies neck pain, Denies odynophagia and Denies sore throat Card Denies chest pain, Denies palpitations and Denies dyspnea Resp Denies cough and Denies dyspnea GI Denies abdominal pain, Denies constipation, Denies dysphagia, Denies heartburn, Denies diarrhea, Denies nausea, Denies odynophagia and Denies vomiting Denies difficulty voiding, Denies nocturia and Denies dysuria Musc Reports arthralgias (recurrent, over the right hip) and Denies neck pain Neuro Denies dizziness and Denies headache(s) Endo Denies fatigue and Denies palpitations Physical exam (Primary Care) Vital Signs: Last Vital Signs Pulse 68 03/08/23 16:01 BP 120/76 03/08/23 16:01 Pulse Ox 97 03/08/23 16:01 Oxygen Delivery Method Room Air 03/08/23 16:01 BMI result Body Mass Index 24.6 Tobacco/Smoking Status: Tobacco use Status Tobacco use date assessed 03/08/23 03/08/23 16:03 Patient Tobacco Use Status Former Tobacco user 03/08/23 16:03 e-Cigarette/Vaping Use Never Used 03/08/23 16:03 PHQ-9: PHQ-9 Score PHQ-9: Total score 0 03/08/23 17:30 Depression Screening Interpretation: Negative Thrive Assessment: Date of Thrive Assessment Date Thrive assessed 03/08/23 03/08/23 16:03 Currently or been in a relationship where the following occur: no concerns reported Const General: no acute distress and alert HENMT Ears: TM's normal bilaterally and EAC's normal Throat: Yes posterior oropharynx normal and Yes tonsils normal (no TP congestion) Neck Neck: Yes no lymphadenopathy and Yes supple Thyroid: Thyroid normal Resp Auscultation: clear to auscultation bilaterally, no rales and no wheezes Cardio Rate: regular rate Rhythm: regular rhythm Heart sounds: no murmurs GI Palpation (GI): Soft to palpation and nontender Auscultation: normal bowel sounds Back/Spine/Pelvis Thoracic/Lumbar Spine: No lumbar spinal tenderness Skin Rashes: no rashes Extrem General: Yes no clubbing, cyanosis or edema Right lower extremity: hip/thigh Details: tenderness Location: of the hip Results Reviewed Results Reviewed: Laboratory Tests 03/06/23 03/06/23 07:34 07:38 WBC 6.0 Hgb 14.9 Hct 46.7 Plt Count 208 Sodium 142 Potassium 4.5 Creatinine 0.86 Estimated GFR > 60 Fasting Glucose 86 Calcium 9.8 AST 18 ALT 18 Triglycerides 74 Cholesterol 249 H LDL Cholesterol, Calc 152 H HDL Cholesterol 83 25-OH Vitamin D Total 35.9 TSH 5.63 H Free T4 1.01 Ur Specific [place] 1.020 Urine Protein Negative Urine Glucose (UA) Negative Urine Blood Trace H Urine Nitrite Negative Ur Leukocyte Esterase Moderate (2+) H Assessment and Plan Assessment & Plan (1) Pure hypercholesterolemia: Code(s): E78.00 - Pure hypercholesterolemia, unspecified Plan: Results of her labs done a few days ago?reviewed and discussed with patient - cautioned that her LDL cholesterol level has again increased slightly from previous and is now at 152 mg/dl Reinforced low cholesterol diet Continue Rosuvastatin 5 mg QD for now as patient would like to have some time to work on her diet again Will recheck her labs and fasting lipids in 4 months for follow-up Advised that we may need to go up on her dosage of her Rosuvastatin if her numbers do not improve significantly over the next few months (2) Acquired hypothyroidism: Code(s): E03.9 - Hypothyroidism, unspecified Plan: Her serum TSH level is again elevated but free T4 remains normal on her recent labs Will continue her for now on Levothyroxine 25 mcg QD Will recheck her LFTs in 4 months for follow up (3) Dyspnea: Comment: PFT done on 02/03/2020 at [facility] [place] came back completely normal; chest x-rays also came out normal Pulmonary evaluation/consultation revealed no pulmonary etiology for her dyspnea; Metacholine challenge test in 02/2020 was normal Code(s): R06.00 - Dyspnea, unspecified Qualifiers: Dyspnea type: unspecified Qualified Code(s): R06.00 - Dyspnea, unspecified Plan: Her respiratory symptoms (dyspnea) have reportedly improved significantly since she was started on Montelukast 10 mg QD late last year Was seen by qualifications examiner previously and diagnosed with possible hyperreactive airway Was initially started on Flovent HFA 110 mcg 1 inhalation BID but she again had the same issue of hoarseness as she did with Qvar in the past so she stopped using her inhalers; has had no problems so far with oral Montelukast Follow up with qualifications examiner as scheduled or as needed (4) Allergic rhinitis: Code(s): J30.9 - Allergic rhinitis, unspecified Qualifiers: Allergic rhinitis seasonality: unspecified Allergic rhinitis trigger: unspecified Qualified Code(s): J30.9 - Allergic rhinitis, unspecified Plan: Continue Montelukast 10 mg QD - patient stopped using her nasal spray as it was causing recurrent hoarseness (5) Vitamin D deficiency: Code(s): E55.9 - Vitamin D deficiency, unspecified Plan: Continue Vitamin D3 2000 units QD (6) Right hip pain: Code(s): M25.551 - Pain in right hip Plan: X-rays of the right hip done a few months ago came our normal States that her right hip symptoms have improved with physical therapy over the past couple of months but continue to bother her often Will go ahead and refer her to orthopedics for further evaluation and management of her right hip issues (7) Osteoarthritis of both knees: Code(s): M17.0 - Bilateral primary osteoarthritis of knee Qualifiers: Osteoarthritis type: primary Qualified Code(s): M17.0 - Bilateral primary osteoarthritis of knee Plan: Gets cortisone injection(s) from orthopedics when needed for symptomatic relief Follow up with orthopedics as scheduled Plan Follow up in 4 months Orders: Orders Complete Blood Count Auto Diff 4 Months I10 - Essential (primary) hypertension Comprehensive [place]. Panel Fast 4 Months E78.00 - Pure hypercholesterolemia, unspecified Lipid Panel 4 Months E78.00 - Pure hypercholesterolemia, unspecified UA CC w/rflx Micro + Cult 4 Months R30.0 - Dysuria Vitamin D 25-OH Total 4 Months E55.9 - Vitamin D deficiency, unspecified Thyroid Stimulating Hormone 4 Months E03.9 - Hypothyroidism, unspecified Free T4 (Free Thyroxine) 4 Months E03.9 - Hypothyroidism, unspecified Referrals Orthopedics Referral M25.551 - Pain in right hip Coding Level of Care Code Est Pt Level 4 (99222) Diagnoses Pure hypercholesterolemia E78.00 Acquired hypothyroidism E03.9 Dyspnea, unspecified type R06.00 Dyspnea type: unspecified Allergic rhinitis, unspecified seasonality, unspecified trigger J30.9 Allergic rhinitis seasonality: unspecified Allergic rhinitis trigger: unspecified Vitamin D deficiency E55.9 Right hip pain M25.551 Primary osteoarthritis of both knees M17.0 Osteoarthritis type: primary Additional Codes JESUS-7 Assessment Billing - JESUS-7 Assessment Tool: JESUS-7 Assessment 32998 ([id number])
== END 2023-03-08 17:32 | disposition home or self-care (01) ==
PROVIDERS: PCP Internal Medicine; Visit Provider Internal Medicine
DX: E78.00 Pure hypercholesterolemia, unspecified (principal); E03.9 Hypothyroidism, unspecified; R06.00 Dyspnea, unspecified; J30.9 Allergic rhinitis, unspecified; E55.9 Vitamin D deficiency, unspecified; M25.551 Pain in right hip; M17.0 Bilateral primary osteoarthritis of knee
CPT/HCPCS: 99214

== ENCOUNTER 2023-04-19 14:22 | Outpatient (AMB) | payer BC, SELFPAY ==
[2023-04-19 14:27] VITALS: BP 112/78; PULSE 56; O2SAT 97; BMI 23.5
--- NOTE | 2023-04-19 14:27 | MHC.PC.OV ---
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 Accompanied by: Self / Same As Patient Allergies doxycycline Allergy (Severe, Verified 04/24/23 04:17) Hives atorvastatin Adverse Reaction (Intermediate, Verified 04/24/23 04:17) persistent aching in legs bandages Allergy (Severe, Uncoded 04/24/23 04:17) Rash Medication List - Last Reconciled 04/24/23 by Kirk Black MD fluticasone propionate 50 mcg/actuation 1 spray intranasal DAILY 30 days levothyroxine 25 mcg PO DAILY 90 days montelukast 10 mg PO DAILY 90 days rosuvastatin 5 mg PO DAILY tizanidine 2 mg PO TID PRN Tobacco use date assessed: 04/19/23 Dental Screening Dental Screen Date: 04/19/23 Did you have a dental visit in the last 12 months?: Yes Did you have a dental problem in the last 6 months where you did not have access to dental care?: No Was dental information given to patient?: Patient has dentist HPI Discuss Thyroid HPI Details Patient comes in for further evaluation of a recurrent tremor on the anterior aspect of her throat/neck, which she states has been going on for a few months now but she feels has gotten worse and occurring more often and more pronounced lately States that despite her symptoms, she has no trouble swallowing when eating or drinking and that the tremors over her anterior neck area do not keep her awake at night She denies any SOB or trouble breathing; denies any chest pains Denies any fever, headaches or dizziness No nausea/vomiting, no abdominal pain and no change in bowel habits noted She recently had her TFTs and other routine labs done last month and her tests have all come back normal/controlled [facility] Medical History Acquired hypothyroidism Osteoarthritis of both knees Vitamin D deficiency Multiple nevi Allergic rhinitis Airway hyperreactivity Pure hypercholesterolemia Dyspnea Surgical History History of tubal ligation Family History Father Stroke Diabetes Hypertension Mother Breast cancer Paternal Aunt Breast cancer Maternal Aunt Colon cancer Social History Housing: House Alcohol intake: current Alcohol intake frequency: holidays/special occasions only Patient Tobacco Use Status: Former Tobacco user e-Cigarette/Vaping Use: Never Used Second Hand Smoke Exposure: Yes service: No Current occupational status: employed Cognitive needs: No Hearing needs: No Vision needs: No Questionnaire PHQ-9 Over the last 2 weeks, how often have you been bothered by any of the following problems? 1. Little interest or pleasure in doing things: not at all 2. Feeling down, depressed, or hopeless: not at all 3. Trouble falling or staying asleep, or sleeping too much: not at all 4. Feeling tired or having little energy: not at all 5. Poor appetite or overeating: not at all 6. Feeling bad about yourself - or that you are a failure or have let yourself or your family down: not at all 7. Trouble concentrating on things, such as reading the newspaper or watching television: not at all 8. Moving or speaking so slowly that other people could have noticed. Or the opposite - being so fidgety or restless that you have been moving around a lot more than usual: not at all 9. Thoughts that you would be better off or of hurting yourself in some way: not at all Total score: 0 Depression Screening Interpretation: Negative Depression Screening Done: Yes 62510 - PHQ-9 Billing: Yes Source: Developed by Drs. King Goldman, Anastacia Wilkinson, Devan Titus and colleagues, with an educational oscar from [employer]. Thrive Questionnaire Date Thrive assessed: 04/19/23 I am a: Patient What is your living situation today?: I have a steady place to live Within the past 12 months, did the food you bought not last and you didn't have the money to get more?: Never true Within the past 12 months, did you worry whether your food would run out before you got money to buy more?: Never true Do you have trouble paying for medicines?: No Do you have trouble getting transportation to medical appointments?: No Do you have trouble paying your heating and electricity bill?: No Do you have trouble taking care of your child, family member or friend?: No Do you have trouble with day-to-day activities such as bathing, preparing meals, shopping, managing finances, etc.?: No Are you currently unemployed and looking for a job?: No Are you interested in more education?: No Please select the resources that you would like help with: None Currently or been in a relationship where the following occur: no concerns reported THRIVE Score: 0 AUDIT C Alcohol Use Questionnaire (AUDIT-C) 1. How often do you have a drink containing alcohol?: Monthly or less 2. How many drinks containing alcohol do you have on a typical day when you are drinking?: 1 or 2 3. How often do you have six or more drinks on one occasion?: Never Total Score: 1 Score Reviewed/Action Taken: Yes JESUS-7 AMB Questionnaire JESUS-7 Date JESUS - 7 assessed: 04/19/23 Feeling nervous, anxious, or on edge: 0 = Not at all Not being able to stop or control worryin = Not at all Worrying too much about different things: 0 = Not at all Trouble relaxin = Not at all Being so restless that it is hard to sit still: 0 = Not at all Becoming easily annoyed or irritable: 0 = Not at all Feeling afraid as if something awful might happen: 0 = Not at all Total JESUS-7 score (0-4 normal; 5-9 mild; 10-14 moderate; 15-21 severe): 0 Source: Developed by Drs. King Goldman, Anastacia Wilkinson, Devan Titus and colleagues, with an educational oscar from [employer]. JESUS-7 Assessment Billing JESUS-7 Assessment Tool: JESUS-7 Assessment 23082 Review of Systems Const Denies chills, Denies fatigue, Denies fever(s) and Denies headache(s) ENT Details: (+) frequent and noticeable tremors over her anterior neck area; neck is non-tender on palpation Denies dysphagia, Denies dizziness, Denies otalgia, Denies headache(s), Denies neck pain, Denies odynophagia and Denies sore throat Card Denies chest pain, Denies palpitations and Denies dyspnea Resp Denies cough and Denies dyspnea GI Denies abdominal pain, Denies constipation, Denies dysphagia, Denies heartburn, Denies diarrhea, Denies nausea, Denies odynophagia and Denies vomiting Denies difficulty voiding, Denies nocturia and Denies dysuria Musc Reports arthralgias (recurrent, over the right hip) and Denies neck pain Skin/Breast Denies rash Neuro Denies dizziness and Denies headache(s) Endo Denies fatigue and Denies palpitations Physical exam (Primary Care) Vital Signs: Last Vital Signs Pulse 56 04/19/23 14:27 BP 112/78 04/19/23 14:27 Pulse Ox 97 04/19/23 14:27 Oxygen Delivery Method Room Air 04/19/23 14:27 BMI result Body Mass Index 23.5 Tobacco/Smoking Status: Tobacco use Status Tobacco use date assessed 04/19/23 04/19/23 14:30 Patient Tobacco Use Status Former Tobacco user 04/19/23 14:30 e-Cigarette/Vaping Use Never Used 04/19/23 14:30 PHQ-9: PHQ-9 Score PHQ-9: Total score 0 04/19/23 15:29 Depression Screening Interpretation: Negative Thrive Assessment: Date of Thrive Assessment Date Thrive assessed 04/19/23 04/19/23 14:30 Currently or been in a relationship where the following occur: no concerns reported Const General: no acute distress and alert HENMT Ears: TM's normal bilaterally and EAC's normal Throat: Yes posterior oropharynx normal, Yes tonsils normal (no TP congestion) and Yes uvula midline Neck Other: (+) frequent/recurrent tremors noted over the anterior neck involving predominantly the hyoid muscles Neck: Yes no lymphadenopathy, Yes supple and No anterior neck swelling Thyroid: Thyroid normal and nontender Carotids: no bruits Resp Auscultation: clear to auscultation bilaterally, no rales and no wheezes Cardio Rate: regular rate Rhythm: regular rhythm Heart sounds: no murmurs GI Palpation (GI): Soft to palpation and nontender Auscultation: normal bowel sounds Back/Spine/Pelvis Thoracic/Lumbar Spine: No lumbar spinal tenderness Skin Rashes: no rashes Extrem General: Yes no clubbing, cyanosis or edema Right lower extremity: hip/thigh Details: tenderness Location: of the hip Results Reviewed Results Reviewed: Laboratory Tests 03/06/23 03/06/23 03/06/23 07:34 07:38 07:38 WBC 6.0 Hgb 14.9 Hct 46.7 Plt Count 208 Sodium 142 Potassium 4.5 Creatinine 0.86 Estimated GFR > 60 Fasting Glucose 86 Calcium 9.8 AST 18 ALT 18 Alkaline Phosphatase 90 Triglycerides 74 Cholesterol 249 H LDL Cholesterol, Calc 152 H HDL Cholesterol 83 25-OH Vitamin D Total 35.9 TSH 5.63 H Free T4 1.01 Ur Specific [place] 1.020 Urine Protein Negative Urine Glucose (UA) Negative Urine Blood Trace H Urine Nitrite Negative Ur Leukocyte Esterase Moderate (2+) H Assessment and Plan Assessment & Plan (1) Cricopharyngeal spasm: Code(s): J39.2 - Other diseases of pharynx Plan: She is advised that she likely has some form of cricopharyngeal spasms although she does not appear to have any problems with swallowing, which may be seen in more severe cases Will send patient for a barium swallow for further evaluation as well as refer her to GI for further evaluation and management to see if we can identify with more certainty what patient has and what could be causing her symptoms in case they progress Will start her for now on low dose Tizanidine 2 mg TID PRN Patient is advised to seek medical attention TODD if she starts to experience any problems with her swallowing or breathing Plan Follow up as scheduled in June 2023 and PRN Orders: Orders FL barium swallow 04/19/23 J39.2 - Other diseases of pharynx Referrals Gastroenterology Referral J39.2 - Other diseases of pharynx Medications: New tizanidine 2 mg PO TID PRN 30 tabs 2RF muscle spasticity Coding Level of Care Code Est Pt Level 3 (66703) Diagnoses Cricopharyngeal spasm J39.2 Additional Codes JESUS-7 Assessment Billing - JESUS-7 Assessment Tool: JESUS-7 Assessment 45483 ([id number])
== END 2023-04-19 15:33 | disposition home or self-care (01) ==
PROVIDERS: PCP Internal Medicine; Visit Provider Internal Medicine
DX: J39.2 Other diseases of pharynx (principal)
CPT/HCPCS: 99213

== ENCOUNTER 2023-05-03 08:11 | Outpatient (AMB) | payer BC, SELFPAY ==
--- NOTE | 2023-05-03 08:13 | MHC.OFFVIS ---
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 She is doing well with no concerns. Attempting to eat a healthy diet (Brightline diet) with calcium and vitamin D, and stays active with exercise-Pickleball 2x/wk.. Currently sexually active w/. Denies any vaginal dryness-uses lubrication prn, no irritation. Last mammogram; 2022. Colonoscopy is booked Family hx of breast cancer in mother and paternal GM and colon cancer in maternal aunt. Denies family hx of ovarian cancer. Last pap smear 2019. [facility] Medical History Acquired hypothyroidism Osteoarthritis of both knees Vitamin D deficiency Multiple nevi Allergic rhinitis Airway hyperreactivity Pure hypercholesterolemia Dyspnea Surgical History History of tubal ligation Family History Father Stroke Diabetes Hypertension Mother Breast cancer Paternal Aunt Breast cancer Maternal Aunt Colon cancer Social History Housing: House Alcohol intake: current Alcohol intake frequency: holidays/special occasions only Patient Tobacco Use Status: Former Tobacco user e-Cigarette/Vaping Use: Never Used Second Hand Smoke Exposure: Yes service: No Current occupational status: employed Cognitive needs: No Hearing needs: No Vision needs: No Female Reproductive History Menstrual control method: permanent sterilization Permanent Sterilization: BTL Menopause type: natural Total pregnancies: 3 Full term: 3 Number of Living Children: 3 Date of last pap smear: 11/20/19 (neg pap and hpv) Date of Mammogram: 01/27/23 (Birad 2) Review of Systems Const All systems reviewed & are unremarkable except as noted in HPI and below Reports as per HPI Eyes Reports no additional complaints ENT Reports no additional complaints Card Reports no additional complaints Resp Reports no additional complaints GI Reports as per HPI and Reports no additional complaints Reports as per HPI Musc Reports no additional complaints Skin/Breast Reports as per HPI Neuro Reports no additional complaints Psych Reports no additional complaints Endo Reports no additional complaints Eliseo/Lymph Reports no additional complaints Aller/Immun Reports no additional complaints Physical Exam Vital Signs: Last Vital Signs BP 110/70 05/03/23 08:14 BMI result Body Mass Index 23.4 Const General: cooperative, healthy appearing, no acute distress, well developed and alert Orientation/consciousness: patient oriented x3 HEENT Head: Yes normal to inspection Eyes General: appearance normal, both eyes and all related structures Neck Neck: Yes normal visual inspection Thyroid: Thyroid normal Chest Chest palpation & inspection: normal inspection of the chest and other (no puckering, dimpling, peau de orange, retraction, discharge, masses) Breast/axilla inspection: normal inspection of the breasts Breast/axilla palpation: normal palpation of the breasts Resp Effort & Inspection: normal respiratory effort GI Inspection: Yes normal to inspection Palpation (GI): Soft to palpation Rectal Exam - Female: deferred General: Yes bladder normal to palpation External Female Exam: normal external appearance and normal appearance of the urethra Speculum Exam - Vagina: normal appearance of the vagina, normal palpation, normal vaginal discharge and vagina atrophic Speculum Exam - Cervix: normal appearance of the cervix and normal palpation Bimanual exam- vagina & uterus: normal bimanual exam, normal palpation, uterine size normal, bladder normal to palpation, normal palpation and non-tender Bimanual Exam- Adnexa, other: no masses Skin General skin exam: no rashes or lesions noted Rashes: no rashes Neuro General: patient oriented x3 Cognition (Neuro): normal cognition Extrem General: Yes normal to inspection Psych Attitude: cooperative Thought process: Normal thought process present Assessment & Plan Assessment & Plan (1) Encounter for well woman exam with routine gynecological exam: Code(s): Z01.419 - Encounter for gynecological examination (general) (routine) without abnormal findings Plan Discussed: Current recommendations for pap smears per ASCCP guidelines. Breast awareness, periodic self breast exams and yearly mammogram. Maintain a healthy lifestyle, well balanced diet including Calcium 1,200 mg and Vitamin D 600 IU daily, and routine exercise. Contact the office with any postmenopausal bleeding. Patient verbalizes understanding and agrees to the plan of care. She was given opportunity to ask questions and all questions were answered to the best of my ability. 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 This note is constructed using voice recognition software. While every effort has been made to ensure accuracy, mud temperer errors may have been included. Coding Level of Care Code Est Pt Prev Care 40-64y(38107) Diagnoses Encounter for well woman exam with routine gynecological exam Z01.419
[2023-05-03 08:14] VITALS: BP 110/70; BMI 23.4
== END 2023-05-03 09:04 | disposition home or self-care (01) ==
LOC: HO.HWS 08:11
PROVIDERS: PCP Internal Medicine; Visit Provider Advanced Practice Midwife
DX: Z01.419 Encounter for gynecological examination (general) (routine) without abnormal findings (principal)
CPT/HCPCS: 99396

== ENCOUNTER → 2023-05-03 08:11 | Outpatient (BNVA) | payer BC, SELFPAY | PROVIDERS: PCP Internal Medicine; Visit Provider Advanced Practice Midwife ==

== ENCOUNTER 2023-05-30 09:12 | Outpatient (REF) | payer BC, SELFPAY ==
--- NOTE | ~2023-05-30 | FL_ITS ---
EXAMINATION: XR FLUOROSCOPY UPPER GI WITH AIR CLINICAL INFORMATION: Dysphagia COMPARISON: Barium swallow November 2016 TECHNIQUE: Fluoroscopic air contrast upper GI examination was performed utilizing standard techniques with thin and thick barium and effervescent granules. Numerous spot images were obtained. FINDINGS: Lateral cine images of the oropharynx and hypopharynx demonstrate normal swallow mechanism with normal epiglottic inversion and soft palate elevation. No tracheal penetration, glottic or subglottic aspiration identified. No nasopharyngeal reflux present. Hypopharyngeal structures appear normal without evidence of mass or diverticulum. There was no significant cricopharyngeal achalasia. Dual and single contrast images of the esophagus demonstrate normal caliber, contour, and mucosal pattern. No evidence of stricture, mass, or ulcerations identified. Esophageal peristalsis was mildly disorganized. There is mild narrowing of the GE junction that may represents achalasia. A benign stricture cannot be ruled out. No evidence of hiatus hernia identified. No significant gastroesophageal reflux was seen during the course of the examination and on reflux views. Dual contrast and single contrast images of the stomach demonstrated a normal contour. The gastric mucosal folds appear mildly thickened. There are multiple small foci of contrast pooling in the fundus, body and antrum of stomach that may represent small superficial aphthous ulcers. No masses are seen. Contrast freely passed into the gastric antrum and duodenal bulb without delay. Single and air-contrast images of the duodenal bulb demonstrate no abnormality. The duodenal sweep has a normal appearance, course, and mucosal fold appearance. No malrotation. The imaged proximal jejunum has a normal fold pattern and caliber. FLUOROSCOPY TIME: 4 minutes 6 seconds Number of Spot Images: 8 Number of Cine: 11 DOSE AREA PRODUCT: 2222 uGy-m2 (microgray-meter squared) FL/FL barium swallow IMPRESSION: 1. Mildly disorganized esophageal peristalsis. 2. Mild narrowing of the GE junction that may represent mild achalasia versus a mild benign stricture. 3. Mildly thickened gastric rugal folds. In addition, there are multiple small foci of contrast pooling in the fundus, body, and antrum of the stomach. These findings suggest erosive gastritis. Recommend correlation with EGD. This procedure was performed by Srikanth Naik PA-C, and supervised by Dr. Black
== END 2023-05-30 09:13 | disposition home or self-care (01) ==
LOC: HO.XRAY 09:12
PROVIDERS: PCP Internal Medicine; Visit Provider Internal Medicine
DX: J39.2 Other diseases of pharynx (principal)
CPT/HCPCS: 74220

== ENCOUNTER → 2023-05-30 09:13 | Outpatient (BNV) | payer BC, SELFPAY | PROVIDERS: PCP Internal Medicine; Visit Provider Physician Assistant Surgical | DX: R13.10 Dysphagia, unspecified (principal) | CPT/HCPCS: 74246 ==

== ENCOUNTER 2023-07-04 13:02 | Outpatient (AMB) | payer BC, SELFPAY ==
[2023-07-04 13:06] VITALS: BMI 23.4
--- NOTE | 2023-07-04 13:06 | A.OFFVIS_ITS ---
Vital Signs 07/04/23 13:06 Height 5 ft 8 in Weight 154 lb BMI 23.4 Intake Visit Reasons: OV - Left knee OV, last injection 01/09/23 Intake Note: Araceli is a 62 year old female who presents today for a follow up of her left knee OA, last injection for both of her knees was on 01/09/23. Patient reports that her pain is worse on the left knee than the right. She expresses that her last injections gave her some relief. Patient states that she would like to repeat igor knee injections today. 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 I last saw the patient in the office on 01/09/2023 when she was given cortisone injections in the bilateral knees. While in the office today the patient reports her pain is worse on the left knee than the right knee. She claims her last cortisone injection gave her some relief; therefore, she would like to repeat the injections bilaterally. FORMERLY [facility] Medical History Acquired hypothyroidism Osteoarthritis of both knees Vitamin D deficiency Multiple nevi Allergic rhinitis Airway hyperreactivity Pure hypercholesterolemia Dyspnea Surgical History History of tubal ligation Family History Father Stroke Diabetes Hypertension Mother Breast cancer Paternal Aunt Breast cancer Maternal Aunt Colon cancer Social History Housing: House Alcohol intake: current Alcohol intake frequency: holidays/special occasions only Patient Tobacco Use Status: Former Tobacco user e-Cigarette/Vaping Use: Never Used Second Hand Smoke Exposure: Yes service: No Current occupational status: employed Cognitive needs: No Hearing needs: No Vision needs: No Review of Systems Const All systems reviewed & are unremarkable except as noted in HPI and below Physical Exam Vital Signs: BMI result Body Mass Index 23.4 Const General: cooperative, healthy appearing and no acute distress Resp Effort & Inspection: normal respiratory effort and able to speak in complete sentences Cardio Rate: regular rate Peripheral pulses: Peripheral pulses 2+ throughout GI Palpation (GI): Soft to palpation Skin Lesions: no lesions Rashes: no rashes Extrem Other: Bilateral knee: Normal to inspection. No ecchymosis or erythema.Mild to moderate effusion. No tenderness to palpation to the medial or lateral joint lines. Full knee extension and flexion. Mild crepitus felt wit ROM. Negative Zeeshan's. Negative anterior draw. NVI. Office Procedures Joint Injection/Drain Joint Injection/Drain Primary Site: right knee Secondary Site: left knee Prep: site was prepped using aseptic technique, ethochloride spray was applied and injection warnings given Injected: 80 mg of, DepoMedrol, with 8 mL of (2% lido plain ) and in the joint Approach Used: anterolateral Procedure: The patient tolerated the procedure well, but had some pain with the injection and there was some relief with the local anesthesia Coding 06624 - Large joint Procedure code (CPT) selection complete Assessment & Plan Assessment & Plan (1) Osteoarthritis of left knee: Code(s): M17.12 - Unilateral primary osteoarthritis, left knee Category: Medical Qualifiers: Osteoarthritis type: unspecified Qualified Code(s): M17.12 - Unilateral primary osteoarthritis, left knee (2) Osteoarthritis of right knee: Code(s): M17.11 - Unilateral primary osteoarthritis, right knee Category: Medical Qualifiers: Osteoarthritis type: unspecified Qualified Code(s): M17.11 - Unilateral primary osteoarthritis, right knee Plan Ms. Moulton is a 62-year-old female who presents in the office today for a follow up of left knee pain. I last saw the patient in the office on 01/09/2023 when she was given cortisone injections in the bilateral knees. While in the office today the patient reports her pain is worse on the left knee than the right knee. She claims her last cortisone injection gave her some relief; therefore, she would like to repeat the injections bilaterally. The patient was offered a cortisone injection in the bilateral knees with 80 mg of DepoMedrol. The patient was explained the risk, benefits, and alternatives to receiving this injection. After receiving consent for the injection, the patient had the procedure done while in the office today. The patient tolerated the procedure well with no complications. Due to the patient reports her left knee pain is much greater than the right knee pain we have elected to move forward with an MRI to further evaluate the integrity of the left knee. Patient has tried cortisone injections and anti- inflammatories with mild relief. Follow up will be after MRI is obtained, or sooner if needed. Orders: Orders MR knee LT wo con 07/04/23 M17.12 - Unilateral primary osteoarthritis, left knee Patient Instructions: Scribed by Cat Sanchez biomedical scientist, for Pastora Lal PA-C on 07/04/2023 at 1:03 pm, EST. Coding Level of Care Code Est Pt Level 3 (07898) Diagnoses Osteoarthritis of left knee, unspecified osteoarthritis type M17.12 Osteoarthritis type: unspecified Osteoarthritis of right knee, unspecified osteoarthritis type M17.11 Osteoarthritis type: unspecified CPT Codes Coding - 23678 Large joint: 74345 - Large joint ([id number])
== END 2023-07-04 13:24 | disposition home or self-care (01) ==
PROVIDERS: PCP Internal Medicine; Visit Provider Physician Assistant
DX: M17.0 Bilateral primary osteoarthritis of knee (principal)
CPT/HCPCS: 20610; 99213

== ENCOUNTER → 2023-07-04 13:02 | Outpatient (BNVA) | payer BC, SELFPAY | PROVIDERS: PCP Internal Medicine; Visit Provider Physician Assistant | DX: M17.0 Bilateral primary osteoarthritis of knee (principal) | CPT/HCPCS: 20610; J1010 ==

== ENCOUNTER 2023-07-06 07:21 | Outpatient (REF) | payer BC, SELFPAY ==
[2023-07-06 07:37] LABS: MANUAL DIFF FLAG NO
[2023-07-06 07:54] LABS: Appearance Urine Clear; Color Urine Yellow; Glucose Urine UA Negative (Negative); Leukocyte Esterase Urine Moderate (2+) (Negative); Nitrite Urine Negative (Negative); PH 6.5 (5.0-9.0); Specific Gravity - Urine 1.015 (1.005-1.025); UMIC TRIGGER UACC YES; Urine Blood Negative (Negative); Urine Ketones Negative (Negative); Urine Protein Negative (Neg-Trace)
[2023-07-06 08:05] LABS: Basophils Absolute Auto 0.1 X10*3/uL (0.0-0.2); Basophils Percent Auto 1.3 % (0-2); Eosinophils Absolute Auto 0.1 X10*3/uL (0.0-0.4); Eosinophils Percent Auto 1.1 % (0-4); Hematocrit 43.9 % (37.0-47.0); Hemoglobin 14.3 g/dl (12.0-16.0); Imm Gran Abs Auto 0.04 X10*3/uL (0.00-0.03); Imm Gran Pct Auto 0.7 % (0.0-0.4); Lymphocytes Absolute Auto 2.2 X10*3/uL (1.2-4.9); Lymphocytes Percent Auto 39.4 % (20-40); Mean Corpuscular HGB Conc 32.6 g/dl (31.0-35.0); Mean Corpuscular Volume 86.1 fL (80.0-98.0); Mean Platelet Volume 11.7 fL (9.4-12.3); Monocytes Absolute Auto 0.4 X10*3/uL (0.1-1.2); Monocytes Percent Auto 6.4 % (2-11); Neutrophils Absolute Auto 2.9 x10*3/uL (2.0-8.3); Neutrophils Percent Auto 51.1 % (45-73); Platelet Count 172 X10*3/uL (160-400); Red Cell Distribution Width 13.2 % (11.0-16.0); White Blood Count 5.6 X10*3/uL (4.8-10.8)
[2023-07-06 08:16] LABS: Bacteria Urine None Seen (None Seen); Hyaline Casts Urine 0-2 /LPF (0-2); RBC Urine 0-2 /HPF (0-2); Squamous Epithelial Cell Urine 0-2 /HPF (0-2); WBC Urine 0-5 /HPF (0-5)
[2023-07-06 08:36] LABS: Alanine Aminotransferase 15 U/L (0-31); Albumin Level 4.6 g/dL (3.5-5.0); Alkaline Phosphatase 119 U/L (39-117); Anion Gap 15 (12-20); Aspartate Amino Transferase 16 U/L (5-31); Bilirubin Total 0.9 mg/dL (0.0-1.0); Blood Urea Nitrogen 13 mg/dL (9-16); Calcium 9.8 mg/dL (8.4-10.2); Carbon Dioxide 27 mmol/L (22-29); Chloride 106 mmol/L (96-108); Cholesterol 195 mg/dL (<200); Estimated Glomerular Filt Rate > 60; Glucose Fasting 90 mg/dL (60-99); HDL Cholesterol 68 mg/dL (>40); LDL Cholesterol Calculated 113 mg/dL (<100); Potassium 4.2 mmol/L (3.3-5.1); Sodium 144 mmol/L (135-145); Total Protein 7.1 g/dL (6.5-8.0); Triglycerides 70 mg/dL (<150)
[2023-07-06 08:54] LABS: Free T4 (Free Thyroxine) 0.99 ng/dL (0.71-1.85); Thyroid Stimulating Hormone 2.77 uIU/mL (0.32-4.0); Vitamin D 25-OH Total 40.9 ng/mL (>30)
== END 2023-07-06 07:22 | disposition home or self-care (01) ==
LOC: HO.LAB 07:21
PROVIDERS: PCP Internal Medicine; Visit Provider Internal Medicine
DX: E55.9 Vitamin D deficiency, unspecified (principal); E03.9 Hypothyroidism, unspecified; I10 Essential (primary) hypertension; E78.00 Pure hypercholesterolemia, unspecified
CPT/HCPCS: 36415; 80053; 80061; 81001; 81003; 82306; 84439; 84443; 85025

== ENCOUNTER 2023-07-13 09:09 | Outpatient (AMB) | payer BC, SELFPAY ==
--- NOTE | 2023-07-13 09:11 | A.OFFPC_ITS ---
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 Required: No Allergies doxycycline Allergy (Severe, Verified 07/13/23 09:43) Hives atorvastatin Adverse Reaction (Intermediate, Verified 07/13/23 09:43) persistent aching in legs bandages Allergy (Severe, Uncoded 07/13/23 09:43) Rash Medication List - Last Reconciled 07/13/23 by Kirk Black MD fluticasone propionate 50 mcg/actuation 1 spray intranasal DAILY 30 days levothyroxine 25 mcg PO DAILY 90 days montelukast 10 mg PO DAILY 90 days rosuvastatin 5 mg PO DAILY tizanidine 2 mg PO TID PRN Tobacco use date assessed: 07/13/23 Dental Screening Dental Screen Date: 04/19/23 HPI hyperlipidemia, hypothyroidism, OA HPI Details Patient comes in today for her follow up visit States that she feels okay She is still experience a recurrent sensation wherein she feels like she has to keep clearing her throat although she denies any trouble swallowing Would like to know what her upper GI series done a few weeks ago showed She denies any headaches or dizziness Denies any chest pains, no SOB No nausea/vomiting, no abdominal pain No change in bowel habits noted Had her follow up labs done last week - to discuss her results FORMERLY [facility] Medical History Asthma Acquired hypothyroidism Osteoarthritis of both knees Vitamin D deficiency Multiple nevi Allergic rhinitis Airway hyperreactivity Pure hypercholesterolemia Dyspnea Surgical History History of tubal ligation Family History Father Stroke Diabetes Hypertension Mother Breast cancer Paternal Aunt Breast cancer Maternal Aunt Colon cancer Social History Housing: House Alcohol intake: current Alcohol intake frequency: holidays/special occasions only Patient Tobacco Use Status: Former Tobacco user e-Cigarette/Vaping Use: Never Used Second Hand Smoke Exposure: Yes service: No Current occupational status: employed Cognitive needs: No Hearing needs: No Vision needs: No Questionnaire Thrive Questionnaire Date Thrive assessed: 04/19/23 AUDIT C Alcohol Use Questionnaire (AUDIT-C) 1. How often do you have a drink containing alcohol?: Monthly or less 2. How many drinks containing alcohol do you have on a typical day when you are drinking?: 1 or 2 3. How often do you have six or more drinks on one occasion?: Never Total Score: 1 Score Reviewed/Action Taken: Yes JESUS-7 AMB Questionnaire JESUS-7 Date JESUS - 7 assessed: 04/19/23 Source: Developed by Drs. King Goldman, Anastacia Wilkinson, Devan Titus and colleagues, with an educational oscar from [employer]. Review of Systems Const Denies chills, Denies fatigue, Denies fever(s) and Denies headache(s) ENT Details: (+) recurrent mild tremors over her anterior neck area; (+) frequent sensation wherein she feels like she has to keep clearing her throat Denies dysphagia, Denies dizziness, Denies otalgia, Denies headache(s), Denies neck pain, Denies odynophagia and Denies sore throat Card Denies chest pain, Denies palpitations and Denies dyspnea Resp Denies cough and Denies dyspnea GI Denies abdominal pain, Denies constipation, Denies dysphagia, Denies heartburn, Denies diarrhea, Denies nausea, Denies odynophagia and Denies vomiting Denies difficulty voiding, Denies nocturia and Denies dysuria Musc Reports arthralgias (on and off, over the right hip) and Denies neck pain Skin/Breast Denies rash Neuro Denies dizziness and Denies headache(s) Endo Denies fatigue and Denies palpitations Physical exam (Primary Care) Vital Signs: Last Vital Signs Pulse 61 07/13/23 09:12 BP 126/62 07/13/23 09:12 Pulse Ox 97 07/13/23 09:12 Oxygen Delivery Method Room Air 07/13/23 09:12 BMI result Body Mass Index 21.7 Tobacco/Smoking Status: Tobacco use Status Tobacco use date assessed 07/13/23 07/13/23 09:17 Patient Tobacco Use Status Former Tobacco user 07/13/23 09:11 e-Cigarette/Vaping Use Never Used 07/13/23 09:11 Thrive Assessment: Date of Thrive Assessment Date Thrive assessed 04/19/23 07/13/23 09:11 Const General: no acute distress and alert HENMT Ears: TM's normal bilaterally and EAC's normal Throat: Yes posterior oropharynx normal and Yes tonsils normal (no TP congestion) Neck Other: (+) occasional tremors noted over the anterior neck involving predominantly the hyoid muscles Neck: Yes no lymphadenopathy and Yes supple Thyroid: Thyroid normal and nontender Carotids: no bruits Resp Auscultation: clear to auscultation bilaterally, no rales and no wheezes Cardio Rate: regular rate Rhythm: regular rhythm Heart sounds: no murmurs GI Palpation (GI): Soft to palpation and nontender Auscultation: normal bowel sounds Back/Spine/Pelvis Thoracic/Lumbar Spine: No lumbar spinal tenderness Skin Rashes: no rashes Extrem General: Yes no clubbing, cyanosis or edema Results Reviewed Results Reviewed: Laboratory Tests 07/06/23 07/06/23 07:25 07:36 WBC 5.6 Hgb 14.3 Hct 43.9 Plt Count 172 Sodium 144 Potassium 4.2 Creatinine 0.73 Estimated GFR > 60 Fasting Glucose 90 Calcium 9.8 AST 16 ALT 15 Triglycerides 70 Cholesterol 195 LDL Cholesterol, Calc 113 H HDL Cholesterol 68 25-OH Vitamin D Total 40.9 TSH 2.77 Free T4 0.99 Ur Specific Sabina 1.015 Urine Protein Negative Urine Glucose (UA) Negative Urine Blood Negative Urine Nitrite Negative Ur Leukocyte Esterase Moderate (2+) H Assessment and Plan Assessment & Plan (1) Pure hypercholesterolemia: Code(s): E78.00 - Pure hypercholesterolemia, unspecified Plan: Results of her labs done last week?reviewed and discussed with patient - advised that her cholesterol levels have improved significantly from previous Reinforced low cholesterol diet - states that she has really been working hard on her diet and has stopped eating any snacks outside of her 3 regular meals daily Continue Rosuvastatin 5 mg QD but is still hoping that she can try coming off her cholesterol medicine at some point in the future if her cholesterol numbers stay very good Will recheck her labs and fasting lipids in 4 months for follow-up (2) Acquired hypothyroidism: Code(s): E03.9 - Hypothyroidism, unspecified Plan: Her TFTs are now normal on her recent labs Continue Levothyroxine 25 mcg QD Will recheck her TFTs in 4 months for follow up (3) Erosive gastritis: Code(s): K29.60 - Other gastritis without bleeding Plan: Patient had upper GI series done last month, which showed (+) mildly thickened gastric rugal folds as well as multiple foci of contrast pooling in the fundus, body and antrum of the stomach, suggestive of erosive gastritis and recommend EGD for further evaluation Will refer to GI (she sees Dr. De) for further evaluation and consideration for EGD She is scheduled for her repeat colonoscopy next Monday (07/17/2023) - have advised patient to go over to Dr. De' office now to see if this is something that they can just add-on to her colonoscopy or she has to be rescheduled for both colonoscopy and EGD to be done at the same time (4) Esophageal stricture: Code(s): K22.2 - Esophageal obstruction Plan: Her upper GI series done last month also showed findings of mild narrowing of the GE junction that raffy represent mild achalasia or a mild benign stricture, as well as mildly disorganized esophageal peristalsis Will refer her to GI for further evaluation and management - may require EGD for further evaluation (5) Allergic rhinitis: Code(s): J30.9 - Allergic rhinitis, unspecified Qualifiers: Allergic rhinitis seasonality: unspecified Allergic rhinitis trigger: unspecified Qualified Code(s): J30.9 - Allergic rhinitis, unspecified Plan: Continue Montelukast 10 mg QD - patient stopped using her nasal spray as it was causing recurrent hoarseness (6) Dyspnea: Comment: PFT done on 02/03/2020 at [facility] came back completely normal; chest x-rays also came out normal Pulmonary evaluation/consultation revealed no pulmonary etiology for her dyspnea; Metacholine challenge test in 02/2020 was normal Code(s): R06.00 - Dyspnea, unspecified Qualifiers: Dyspnea type: unspecified Qualified Code(s): R06.00 - Dyspnea, unspecified Plan: Her respiratory symptoms (dyspnea) have reportedly improved significantly since she was started on Montelukast 10 mg QD late last year She sas seen by manager disaster recovery previously and diagnosed with possible hyperreactive airway She was initially started on Flovent HFA 110 mcg 1 inhalation BID but she again had the same issue of hoarseness as she did with Qvar in the past so she stopped using her inhalers; has had no problems so far with oral Montelukast Follow up with manager disaster recovery as scheduled or as needed (7) Vitamin D deficiency: Code(s): E55.9 - Vitamin D deficiency, unspecified Plan: Continue Vitamin D3 2000 units QD (8) Right hip pain: Code(s): M25.551 - Pain in right hip Plan: X-rays of the right hip done a few months ago came out normal States that her right hip symptoms have improved with physical therapy over the past couple of months but continue to bother her often Follow up with orthopedics as scheduled (9) Osteoarthritis of both knees: Code(s): M17.0 - Bilateral primary osteoarthritis of knee Qualifiers: Osteoarthritis type: primary Qualified Code(s): M17.0 - Bilateral primary osteoarthritis of knee Plan: Gets cortisone injection(s) from orthopedics when needed for symptomatic relief Follow up with orthopedics as scheduled Plan Follow up in 4 months Orders: Orders Thyroid Stimulating Hormone 4 Months E03.9 - Hypothyroidism, unspecified Lipid Panel 4 Months E78.00 - Pure hypercholesterolemia, unspecified Comprehensive [place]. Panel Fast 4 Months E78.00 - Pure hypercholesterolemia, unspecified Free T4 (Free Thyroxine) 4 Months E03.9 - Hypothyroidism, unspecified Complete Blood Count Auto Diff 4 Months D64.9 - Anemia, unspecified Referrals Gastroenterology Referral K22.2 - Esophageal obstruction, K22.4 - Dyskinesia of esophagus, K29.60 - Other gastritis without bleeding Coding Level of Care Code Est Pt Level 4 (80265) Diagnoses Pure hypercholesterolemia E78.00 Acquired hypothyroidism E03.9 Erosive gastritis K29.60 Esophageal stricture K22.2 Allergic rhinitis, unspecified seasonality, unspecified trigger J30.9 Allergic rhinitis seasonality: unspecified Allergic rhinitis trigger: unspecified Dyspnea, unspecified type R06.00 Dyspnea type: unspecified Vitamin D deficiency E55.9 Right hip pain M25.551 Primary osteoarthritis of both knees M17.0 Osteoarthritis type: primary
[2023-07-13 09:12] VITALS: BP 126/62; PULSE 61; O2SAT 97; BMI 21.7
== END 2023-07-13 09:59 | disposition home or self-care (01) ==
PROVIDERS: PCP Internal Medicine; Visit Provider Internal Medicine
DX: E78.00 Pure hypercholesterolemia, unspecified (principal); E03.9 Hypothyroidism, unspecified; K29.60 Other gastritis without bleeding; K22.2 Esophageal obstruction; J30.9 Allergic rhinitis, unspecified; R06.00 Dyspnea, unspecified; E55.9 Vitamin D deficiency, unspecified; M25.551 Pain in right hip; M17.0 Bilateral primary osteoarthritis of knee
CPT/HCPCS: 99214

== ENCOUNTER 2023-07-17 07:32 | Day surgery (SDC) | payer BC, SELFPAY ==
[2023-07-13 10:52] VITALS: BMI 23.8
--- NOTE | 2023-07-14 10:05 | P.CONAN_ITS ---
Documented by User: Mirta Perez NP 07/14/23 10:06 HPI - Anesthesia Eval Consult details Narrative: 62yo F for Upper Endoscopy and Colonoscopy [facility] Active Problems Active Problems: All Active Problems Disorder of peristalsis of esophagus (Acute) Esophageal stricture (Acute) Erosive gastritis (Acute) Cricopharyngeal spasm (Acute) Subclinical hypothyroidism (Acute) Right hip pain (Acute) Osteoarthritis of right knee (Acute) Osteoarthritis of left knee (Acute) Left otitis media (Acute) Headache (Acute) Viral illness (Acute) Otitis externa (Acute) Otitis media (Acute) Osteoarthritis of left knee (Acute) Elevated TSH (Acute) Viral respiratory illness (Acute) Exposure to COVID-19 virus (Acute) Encounter for annual routine gynecological examination (Acute) Acquired hypothyroidism (Acute) Osteoarthritis of both knees (Acute) Vitamin D deficiency (Acute) Multiple nevi (Acute) Allergic rhinitis (Acute) Pure hypercholesterolemia (Acute) Dyspnea (Acute) Past Medical History Medical History Asthma Acquired hypothyroidism Osteoarthritis of both knees Vitamin D deficiency Multiple nevi Allergic rhinitis Airway hyperreactivity Pure hypercholesterolemia Dyspnea Family History Family History Father Stroke Diabetes Hypertension Mother Breast cancer Paternal Aunt Breast cancer Maternal Aunt Colon cancer Surgical History Surgical History History of tubal ligation Social History Social History Housing: House Alcohol intake: current Alcohol intake frequency: holidays/special occasions only Patient Tobacco Use Status: Former Tobacco user e-Cigarette/Vaping Use: Never Used Second Hand Smoke Exposure: Yes Use of substances other than those prescribed or required for medical reasons: No Are you DNR?: No Advance Directives: No Advance Directives Information Provided: Yes service: No Current occupational status: employed Cognitive needs: No Hearing needs: No Vision needs: No Meds Allergies Allergy/AdvReac Type Severity Reaction Status Date / Time doxycycline Allergy Severe Hives Verified 07/13/23 09:43 atorvastatin AdvReac Intermediate persistent Verified 07/13/23 09:43 aching in legs bandages Allergy Severe Rash Uncoded 07/13/23 09:43 Home Medications ?Medication ?Instructions ?Recorded ?Confirmed ?Last Taken ?Type multivitamin 1 tab PO DAILY 07/13/23 07/13/23 Unknown History Exam Height,Weight and Vital Signs: Height 5 ft 8.5 in Weight 72.121 kg Assessment and Plan Assessment Anesthesia Assessment: Chart Reviewed Documented by User: Danielito Lowery MD 07/17/23 08:38 PMFSH Past Medical History Medical History Asthma Acquired hypothyroidism Osteoarthritis of both knees Vitamin D deficiency Multiple nevi Allergic rhinitis Airway hyperreactivity Pure hypercholesterolemia Dyspnea Family History Family History Father Stroke Diabetes Hypertension Mother Breast cancer Paternal Aunt Breast cancer Maternal Aunt Colon cancer Family history of problems with anesthesia: No Surgical History Surgical History History of tubal ligation History of Problems with Anesthesia: No Social History Social History Housing: House Alcohol intake: current Alcohol intake frequency: holidays/special occasions only Patient Tobacco Use Status: Former Tobacco user e-Cigarette/Vaping Use: Never Used Second Hand Smoke Exposure: Yes Use of substances other than those prescribed or required for medical reasons: No Are you DNR?: No Advance Directives: No Advance Directives Information Provided: Yes service: No Current occupational status: employed Cognitive needs: No Hearing needs: No Vision needs: No Meds Allergies Allergy/AdvReac Type Severity Reaction Status Date / Time doxycycline Allergy Severe Hives Verified 07/13/23 09:43 atorvastatin AdvReac Intermediate persistent Verified 07/13/23 09:43 aching in legs bandages Allergy Severe Rash Uncoded 07/13/23 09:43 Home Medications ?Medication ?Instructions ?Recorded ?Confirmed ?Last Taken ?Type multivitamin 1 tab PO DAILY 07/13/23 07/13/23 Unknown History Exam Airway Mallampati Class: II TM Dist: <=3cm Neck ROM: Full Loose/Missing/Broken Teeth: No Heart: ok Lungs: ok Assessment and Plan Assessment Anesthesia Assessment: Anesthesia Plan Discussed Final Anesthetic Review Family History of Problems with Anesthesia: No History of Problems with Anesthesia: No NPO: Yes ASA Class: II Final Preanesthetic Review: No Changes in Pt Med Stat, Meds/Allgs Chart Reviewed, Consent Obtained/Reviewed and Anes Risks/Benef Reviewed Patient Risk: Intermediate Procedure Risk: Intermediate Anesthetic Plan Anesthetic Plan: Agree w/ Assess. and Plan and TIVA Disposition: Standard PACU
[2023-07-17 07:40] VITALS: BMI 21.7
[2023-07-17 07:44] VITALS: BP 144/75; PULSE 65; RESP 16; TEMP 36.2; O2SAT 98
[2023-07-17] MEDS: Lactated Ringers 1,000 ML 100 ML IVCONT (07:54)
--- NOTE | 2023-07-17 09:41 | P.BOP_ITS ---
Brief Operative Note Date of Service: 07/17/23 Pre-op diagnosis: Abnormal UGI, Screening Post-op diagnosis: other (Small hiatal hernia, Diverticulosis) Procedure: EGD with biopsies, Colonoscopy to the cecum and TI Surgeon: King De MD Anesthesia: MAC Was an Satellite Tv Installer used for this Procedure?: No Estimated blood loss (mL): 2.0 Pathology: other (A. EG Junction at 39cm B. Esophagus 20-25cm) Condition: stable Disposition: PACU
[2023-07-17 09:44] VITALS: BP 92/48; PULSE 57; RESP 14; TEMP 36.2; O2SAT 97
[2023-07-17 09:59] VITALS: BP 105/59; PULSE 56; RESP 16; O2SAT 99
[2023-07-17 10:15] VITALS: BP 120/66; PULSE 50; RESP 16; TEMP 36.2; O2SAT 99
--- NOTE | 2023-07-17 10:26 | OP_ITS ---
DATE OF SERVICE: 07/17/2023 SURGEON: King De MD INDICATIONS: The patient presents for evaluation of colorectal cancer screening and an abnormal upper GI series. Full consent has been obtained from her for this, including risks of bleeding and perforation. PREOPERATIVE DIAGNOSIS: POSTOPERATIVE DIAGNOSIS: PROCEDURE PERFORMED: Esophagogastroduodenoscopy with biopsies, and colonoscopy to the cecum and terminal ileum. ESTIMATED BLOOD LOSS: COMPLICATIONS: ANESTHESIA: Monitored anesthesia care. ASSISTANTS: SPECIMENS: PREOPERATIVE DIAGNOSES: Abnormal upper gastrointestinal series and colorectal cancer screening. POSTOPERATIVE DIAGNOSES: Abnormal upper gastrointestinal series, colorectal cancer screening, minimal hiatal hernia, diverticulosis, and internal hemorrhoids. DESCRIPTION OF PROCEDURE: The patient was placed in the left lateral decubitus position. The Olympus video gastroscope was passed in the posterior oropharynx and upper esophagus under direct vision. There was no sign of any upper esophageal sphincter narrowing or difficulty passing the scope. The scope was advanced to the distal esophagus. The gastroesophageal junction appeared at 39 cm. There was some very minimal irregularity, but no evidence of any esophagitis nor any definitive evidence of Tellez mucosa. There was a minimal hiatal hernia. The scope was advanced to the pylorus and the duodenum was cannulated to the descending portion. The duodenum including the bulb appeared normal without mass or ulceration. The scope was withdrawn back to the stomach. The gastric antrum and body appeared normal with good peristalsis. The scope was retroflexed visualizing the proximal stomach carefully, which appeared normal, without any sign of inflammation, ulceration, nor mass. The scope was straightened and withdrawn back to the esophagus. Biopsies were obtained at the EG junction at 39 cm. Proximal to this, the esophageal mucosa appeared normal. The proximal esophagus appeared normal other than some patches of gastric heterotopia. There was no sign of any proximal esophageal rings. Biopsies were obtained to rule out eosinophilic esophagitis. The scope was withdrawn from the patient. She was turned around for the colonoscopy. The digital rectal exam revealed external hemorrhoids. The Olympus video pediatric colonoscope was then entered into the rectum and advanced to the cecum with the assistance of abdominal wall pressure. Once in the cecum, I did identify normal-appearing cecal pouch with appendiceal orifice and a normal-appearing ileocecal valve. The terminal ileum was cannulated and appeared normal. The scope was withdrawn back in the colon. The entire cecum and ileocecal valve appeared normal. The scope was slowly withdrawn assessing all mucosal surfaces carefully. Preparation was excellent. I did not visualize any sign of polyps, colitis, nor angiodysplasia. There was a mild amount of sigmoid diverticulosis. In the rectum, scope was retroflexed visualizing internal hemorrhoids, but no other pathology. The rectal mucosa appeared normal. The scope was straightened and withdrawn from the patient. She tolerated the procedures well and was returned to the recovery area in stable condition. IMPRESSION: 1. Minimal hiatal hernia, otherwise normal upper endoscopy. 2. Mild diverticulosis. 3. Internal and external hemorrhoids. PLAN: The results of the biopsies will be checked. I would recommend a repeat colonoscopy in 10 years. In regard to the symptoms that she is having, in which she feels that she is sometimes having some increased swallowing sensation, I do not have a definitive explanation for that. She denies any dysphagia while eating or any other upper GI complaints such as heartburn. The upper GI series did not show any definitive abnormalities and the endoscopy appeared otherwise very normal. She may be having some issues with allergies and increase mucus, so she may want to see an Ear, Nose, and Throat physician. However, I do not see any intrinsic GI pathology that would account for her symptoms at the present time. I do not think acid suppression would be helpful here as she is not describing any symptoms of that in regard to reflux and the endoscopy did not show any sign of significant inflammation. MD ELIEZER Zavaleta/JAYA / [id number]
== END 2023-07-17 10:37 | disposition home or self-care (01) ==
PROVIDERS: PCP Internal Medicine; Visit Provider Internal Medicine
PROC: (CPT 45378; principal; 2023-07-17 08:30)
DX: Z12.11 Encounter for screening for malignant neoplasm of colon (principal); K57.30 Diverticulosis of large intestine without perforation or abscess without bleeding; K64.8 Other hemorrhoids; K64.4 Residual hemorrhoidal skin tags; R93.3 Abnormal findings on diagnostic imaging of other parts of digestive tract; K44.9 Diaphragmatic hernia without obstruction or gangrene; J45.909 Unspecified asthma, uncomplicated
CPT/HCPCS: 45378; 43239; 88305; 88313; J2704

== ENCOUNTER 2023-08-14 14:58 | Outpatient (REF) | payer BC, SELFPAY ==
--- NOTE | ~2023-08-14 | MR_ITS ---
EXAMINATION: MR KNEE WITHOUT CONTRAST, LEFT CLINICAL INFORMATION: Left knee pain and swelling. COMPARISON: Left knee radiographs dated 03/25/2021. TECHNIQUE: MRI of the knee without contrast was performed using routine sequences on a high-field scanner. FINDINGS: MENISCI: Medial Meniscus: Nondisplaced oblique tibial articular surface tear of the meniscal body, which extends to the inner margin of the posterior horn and root. Extension to the peripheral surface of the anterior horn with a small anterior parameniscal cyst measuring up to 0.3 cm. Mild adjacent soft tissue edema. Lateral Meniscus: Intact. LIGAMENTS: Cruciate: Increased T2 signal within the anterior cruciate ligament with minimal degenerative cystic change in the tibial spine, which could represent very early mucoid degeneration. No acute tear. Intact posterior cruciate ligament. Collateral: Intact EXTENSOR MECHANISM: Intact quadriceps and patellar tendons. Normal patellofemoral alignment. Metallic artifact along the lateral border of the patella, which could represent postsurgical change. ARTICULAR CARTILAGE/BONE: Patellofemoral Compartment: Medial patellar facet and lateral patellar facet articular cartilage full-thickness fissuring with minimal subchondral cystic change. Tiny marginal osteophytes. Medial Compartment: Weightbearing articular cartilage thinning and signal heterogeneity with small marginal osteophytes. Lateral Compartment: Intact articular cartilage. JOINT FLUID AND BURSAE: Small joint effusion and small Messer's cyst. MR/MR knee LT wo con IMPRESSION: 1. Nondisplaced oblique tibial articular surface tear of the medial meniscal body, which extends to the inner margin of the posterior horn and root. Extension to the peripheral surface of the anterior horn with a small anterior parameniscal cyst measuring up to 0.3 cm. Mild adjacent soft tissue edema. 2. Probable early mucoid degeneration of the anterior cruciate ligament. No evidence of acute ligament injury. 3. Mild patellofemoral and medial compartment osteoarthritis. Small joint effusion and small Messer's cyst.
== END 2023-08-14 14:59 | disposition home or self-care (01) ==
LOC: HO.MRI 14:58
PROVIDERS: PCP Internal Medicine; Visit Provider Physician Assistant
DX: M17.12 Unilateral primary osteoarthritis, left knee (principal)
CPT/HCPCS: 73721

== ENCOUNTER 2023-10-12 10:21 | Outpatient (AMB) | payer BC, SELFPAY ==
--- NOTE | 2023-10-12 10:25 | MHC.OFFVIS ---
Intake Visit Reasons: OV, Bilat knee inj. Last inj 07/04/23 Intake Note: Araceli is a 62 year old female who presents today for a follow up of her left knee OA, last injection for both of her knees was on 07/04/23. Patient reports her last injections didn't last how her other injections did. She feels that her left knee was giving her trouble about a month or 2 ago she took a break from playing pickle ball which gave her mild relief. Allergies doxycycline Allergy (Severe, Verified 10/12/23 10:30) Hives atorvastatin Adverse Reaction (Intermediate, Verified 10/12/23 10:30) persistent aching in legs bandages Allergy (Severe, Uncoded 07/13/23 09:43) Rash HPI HPI OV, Bilat knee inj. Last inj 07/04/23: Details: 63-year-old female who presents in the office today for a follow-up of bilateral knee osteoarthritis. I last saw the patient in the office on 07/04/23 when she received cortisone injections in the bilateral knees and an order for a left knee MRI was made. ? ? While in the office today, the patient reports her last injection did not last as long as her prior one had. She reports an increase in pain in the left knee one to two months ago. She took a break from playing pickle ball and this gave her mild relief. ? [facility] Medical History Asthma Acquired hypothyroidism Osteoarthritis of both knees Vitamin D deficiency Multiple nevi Allergic rhinitis Airway hyperreactivity Pure hypercholesterolemia Dyspnea Surgical History History of tubal ligation Family History Father Stroke Diabetes Hypertension Mother Breast cancer Paternal Aunt Breast cancer Maternal Aunt Colon cancer Social History Housing: House Alcohol intake: current Alcohol intake frequency: holidays/special occasions only Patient Tobacco Use Status: Former Tobacco user e-Cigarette/Vaping Use: Never Used Second Hand Smoke Exposure: Yes service: No Current occupational status: employed Cognitive needs: No Hearing needs: No Vision needs: No Review of Systems Const All systems reviewed & are unremarkable except as noted in HPI and below Physical Exam Const General: cooperative, healthy appearing and no acute distress Resp Effort & Inspection: normal respiratory effort and able to speak in complete sentences Cardio Rate: regular rate Peripheral pulses: Peripheral pulses 2+ throughout GI Palpation (GI): Soft to palpation Skin Lesions: no lesions Rashes: no rashes Extrem Other: Bilateral knee: Normal to inspection. No ecchymosis or erythema.Mild to moderate effusion. No tenderness to palpation to the medial or lateral joint lines. Full knee extension and flexion. Mild crepitus felt wit ROM. Negative Zeeshan's. Negative anterior draw. NVI. Office Procedures Joint Injection/Aspiration Joint Injection/Aspiration Primary Site: right knee Secondary Site: left knee Prep: site was prepped using aseptic technique, ethochloride spray was applied and injection warnings given Injected: 80 mg of, DepoMedrol, with 8 mL of (2% plain lido) and in the joint Approach Used: anterolateral Procedure: The patient tolerated the procedure well, but had some pain with the injection and there was some relief with the local anesthesia Coding 96625 - Large joint Procedure code (CPT) selection complete Assessment & Plan Assessment & Plan (1) Osteoarthritis of left knee: Code(s): M17.12 - Unilateral primary osteoarthritis, left knee Category: Medical Qualifiers: Osteoarthritis type: unspecified Qualified Code(s): M17.12 - Unilateral primary osteoarthritis, left knee (2) Osteoarthritis of right knee: Code(s): M17.11 - Unilateral primary osteoarthritis, right knee Category: Medical Qualifiers: Osteoarthritis type: unspecified Qualified Code(s): M17.11 - Unilateral primary osteoarthritis, right knee Plan Ms. Moulton is a 63-year-old female who presents in the office today for a follow-up of bilateral knee osteoarthritis. I last saw the patient in the office on 07/04/23 when she received cortisone injections in the bilateral knees and an order for a left knee MRI was made. ? While in the office today, the patient reports her last injection did not last as long as her prior one had. She reports an increase in pain in the left knee one to two months ago. She took a break from playing pickle ball and this gave her mild relief. ?? ? The patient was offered a cortisone injection in the bilateral knees with 80 mg of Depo-Medrol. The patient was explained the risks, benefits, and alternatives to receiving this injection. After receiving consent for the injection, the patient had the procedure done while in the office today. The patient tolerated the procedure well with no complications.? ? Follow-up will be PRN,or sooner if needed. ? ? MRI of the left knee, obtained on 08/14/23, revealed:? 1. Nondisplaced oblique tibial articular surface tear of the medial meniscal body, which extends to the inner margin of the posterior horn and root. Extension to the peripheral surface of the anterior horn with? a small anterior parameniscal cyst measuring up to 0.3 cm. Mild adjacent soft tissue edema.? 2. Probable early mucoid degeneration of the anterior cruciate ligament. No evidence of acute ligament injury.? 3. Mild patellofemoral and medial compartment osteoarthritis. Small joint effusion and small Messer's cyst.? Patient Instructions: Scribed by Cat Sanchez medical technicians, for Pastora Lal PA-C on 10/12/2023 at 10:34 am, EST.? Coding Level of Care Code Est Pt Level 3 (07677) Diagnoses Osteoarthritis of left knee, unspecified osteoarthritis type M17.12 Osteoarthritis type: unspecified Osteoarthritis of right knee, unspecified osteoarthritis type M17.11 Osteoarthritis type: unspecified CPT Codes Coding - 43100 Large joint: 83074 - Large joint ([id number])
== END 2023-10-12 11:48 | disposition home or self-care (01) ==
PROVIDERS: PCP Internal Medicine; Visit Provider Physician Assistant
DX: M17.0 Bilateral primary osteoarthritis of knee (principal)
CPT/HCPCS: 20610; 99213

== ENCOUNTER → 2023-10-12 10:21 | Outpatient (BNVA) | payer BC, SELFPAY | PROVIDERS: PCP Internal Medicine; Visit Provider Physician Assistant | DX: M17.0 Bilateral primary osteoarthritis of knee (principal) | CPT/HCPCS: 20610; J1010 ==

== ENCOUNTER 2023-11-20 08:04 | Outpatient (REF) | payer BC, SELFPAY ==
[2023-11-20 08:17] LABS: MANUAL DIFF FLAG NO
[2023-11-20 08:24] LABS: Basophils Absolute Auto 0.1 X10*3/uL (0.0-0.2); Basophils Percent Auto 1.1 % (0-2); Eosinophils Absolute Auto 0.1 X10*3/uL (0.0-0.4); Eosinophils Percent Auto 1.5 % (0-4); Hematocrit 45.2 % (37.0-47.0); Hemoglobin 14.9 g/dl (12.0-16.0); Imm Gran Abs Auto 0.02 X10*3/uL (0.00-0.03); Imm Gran Pct Auto 0.3 % (0.0-0.4); Lymphocytes Absolute Auto 2.3 X10*3/uL (1.2-4.9); Lymphocytes Percent Auto 37.8 % (20-40); Mean Corpuscular Hemoglobin 29.1 pg (27.0-33.0); Mean Corpuscular Volume 88.3 fL (80.0-98.0); Mean Platelet Volume 10.8 fL (9.4-12.3); Monocytes Absolute Auto 0.5 X10*3/uL (0.1-1.2); Monocytes Percent Auto 7.3 % (2-11); Neutrophils Absolute Auto 3.2 x10*3/uL (2.0-8.3); Platelet Count 182 X10*3/uL (160-400); Red Blood Count 5.12 X10*6/uL (4.20-5.50); Red Cell Distribution Width 13.4 % (11.0-16.0); White Blood Count 6.1 X10*3/uL (4.8-10.8)
[2023-11-20 09:11] LABS: Alanine Aminotransferase 20 U/L (0-31); Albumin Level 4.3 g/dL (3.5-5.0); Alkaline Phosphatase 75 U/L (39-117); Anion Gap 15 (12-20); Aspartate Amino Transferase 20 U/L (5-31); Bilirubin Total 0.9 mg/dL (0.0-1.0); Blood Urea Nitrogen 16 mg/dL (9-16); Calcium 9.3 mg/dL (8.4-10.2); Carbon Dioxide 21 mmol/L (22-29); Chloride 110 mmol/L (96-108); Cholesterol 205 mg/dL (<200); Estimated Glomerular Filt Rate > 60; Glucose Fasting 89 mg/dL (60-99); HDL Cholesterol 74 mg/dL (>40); LDL Cholesterol Calculated 116 mg/dL (<100); Potassium 4.5 mmol/L (3.3-5.1); Sodium 141 mmol/L (135-145); Total Protein 6.8 g/dL (6.5-8.0); Triglycerides 77 mg/dL (<150)
[2023-11-20 09:25] LABS: Thyroid Stimulating Hormone 2.89 uIU/mL (0.32-4.0)
[2023-11-20 09:38] LABS: Appearance Urine Clear; Color Urine Yellow; Glucose Urine UA Negative (Negative); Leukocyte Esterase Urine Small (1+) (Negative); Nitrite Urine Negative (Negative); UMIC TRIGGER UACC YES; Urine Blood Negative (Negative); Urine Ketones Negative (Negative); Urine Protein Negative (Neg-Trace)
[2023-11-20 11:08] LABS: Bacteria Urine None Seen (None Seen); Hyaline Casts Urine 0-2 /LPF (0-2); RBC Urine 0-2 /HPF (0-2); Squamous Epithelial Cell Urine 0-2 /HPF (0-2); UACC Culture Trigger YES; WBC Urine 0-5 /HPF (0-5)
== END 2023-11-20 08:05 | disposition home or self-care (01) ==
LOC: HO.LAB 08:04
PROVIDERS: PCP Internal Medicine; Visit Provider Internal Medicine
DX: D64.9 Anemia, unspecified (principal); E78.00 Pure hypercholesterolemia, unspecified; E03.9 Hypothyroidism, unspecified; R30.0 Dysuria
CPT/HCPCS: 36415; 80053; 80061; 81001; 84439; 84443; 85025; 87086

== ENCOUNTER 2023-11-22 08:58 | Outpatient (AMB) | payer BC, SELFPAY ==
--- NOTE | 2023-11-22 08:58 | A.OFFPC_ITS ---
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 Accompanied by: Self / Same As Patient Allergies doxycycline Allergy (Severe, Verified 11/22/23 09:14) Hives atorvastatin Adverse Reaction (Intermediate, Verified 11/22/23 09:14) persistent aching in legs bandages Allergy (Severe, Uncoded 11/22/23 09:14) Rash Medication List - Last Reconciled 11/22/23 by Kirk Black MD fluticasone propionate 50 mcg/actuation 1 spray intranasal DAILY 30 days levothyroxine 25 mcg PO DAILY 90 days montelukast 10 mg PO DAILY 90 days multivitamin 1 tab PO DAILY rosuvastatin 5 mg PO DAILY tizanidine 2 mg PO TID PRN Tobacco use date assessed: 11/22/23 Fall risk assessment: No Falls in past year Last assessed Fall Risk: 11/22/23 Dental Screening Dental Screen Date: 11/22/23 Did you have a dental visit in the last 12 months?: Yes Did you have a dental problem in the last 6 months where you did not have access to dental care?: No Was dental information given to patient?: Patient has dentist HPI 4 Month F/U HPI Details Patient comes in today for her follow up visit States that she feels okay She denies any headaches or dizziness Denies any chest pains, no SOB No nausea/vomiting, no abdominal pain No change in bowel habits noted Had her follow up labs done a couple of weeks ago - to discuss her results She had her colonoscopy and EGD done with Dr. De back in June 2023 and states that since then, the recurrent sensation wherein she has to keep clearing her throat seems to have subsided quite a bit Her knee pains have also improved slightly since she cut back on her pickleball sessions to just 3 times a week She did get some cortisone injections into her knee a few months ago from orthopedics but states that the shot only provided her with a few weeks of relief, much shorter than they used to in the past [facility] Medical History Asthma Acquired hypothyroidism Osteoarthritis of both knees Vitamin D deficiency Multiple nevi Allergic rhinitis Airway hyperreactivity Pure hypercholesterolemia Dyspnea Surgical History History of esophagogastroduodenoscopy (EGD) History of colonoscopy History of tubal ligation Family History Father Stroke Diabetes Hypertension Mother Breast cancer Paternal Aunt Breast cancer Maternal Aunt Colon cancer Social History Housing: House Alcohol intake: current Alcohol intake frequency: holidays/special occasions only Patient Tobacco Use Status: Former Tobacco user e-Cigarette/Vaping Use: Never Used Second Hand Smoke Exposure: Yes service: No Current occupational status: employed Cognitive needs: No Hearing needs: No Vision needs: No Questionnaire PHQ-9 Over the last 2 weeks, how often have you been bothered by any of the following problems? 1. Little interest or pleasure in doing things: not at all 2. Feeling down, depressed, or hopeless: not at all 3. Trouble falling or staying asleep, or sleeping too much: not at all 4. Feeling tired or having little energy: not at all 5. Poor appetite or overeating: not at all 6. Feeling bad about yourself - or that you are a failure or have let yourself or your family down: not at all 7. Trouble concentrating on things, such as reading the newspaper or watching television: not at all 8. Moving or speaking so slowly that other people could have noticed. Or the opposite - being so fidgety or restless that you have been moving around a lot more than usual: not at all 9. Thoughts that you would be better off or of hurting yourself in some way: not at all Total score: 0 Depression Screening Interpretation: Negative Depression Screening Done: Yes 51549 - PHQ-9 Billing: Yes Source: Developed by Drs. King Goldman, Anastacia Wilkinson, Devan Titus and colleagues, with an educational oscar from [employer]. Thrive Questionnaire Date Thrive assessed: 11/22/23 I am a: Patient What is your living situation today?: I have a steady place to live Within the past 12 months, did the food you bought not last and you didn't have the money to get more?: Never true Within the past 12 months, did you worry whether your food would run out before you got money to buy more?: Never true Do you have trouble paying for medicines?: No Do you have trouble getting transportation to medical appointments?: No Do you have trouble paying your heating and electricity bill?: No Do you have trouble taking care of your child, family member or friend?: No Do you have trouble with day-to-day activities such as bathing, preparing meals, shopping, managing finances, etc.?: No Are you currently unemployed and looking for a job?: No Are you interested in more education?: No Please select the resources that you would like help with: None Currently or been in a relationship where the following occur: No concerns repo rted THRIVE Score: 0 AUDIT C Alcohol Use Questionnaire (AUDIT-C) 1. How often do you have a drink containing alcohol?: Monthly or less 2. How many drinks containing alcohol do you have on a typical day when you are drinking?: 1 or 2 3. How often do you have six or more drinks on one occasion?: Never Total Score: 1 Score Reviewed/Action Taken: Yes JESUS-7 AMB Questionnaire JESUS-7 Date JESUS - 7 assessed: 11/22/23 Feeling nervous, anxious, or on edge: 0 = Not at all Not being able to stop or control worryin = Not at all Worrying too much about different things: 0 = Not at all Trouble relaxin = Not at all Being so restless that it is hard to sit still: 0 = Not at all Becoming easily annoyed or irritable: 0 = Not at all Feeling afraid as if something awful might happen: 0 = Not at all Total JESUS-7 score (0-4 normal; 5-9 mild; 10-14 moderate; 15-21 severe): 0 Source: Developed by Drs. King Goldman, Anastacia Wilkinson, Devan Titus and colleagues, with an educational oscar from [employer]. Review of Systems Const Denies chills, Denies fatigue, Denies fever(s) and Denies headache(s) ENT Denies dysphagia, Denies dizziness, Denies otalgia, Denies headache(s), Denies neck pain, Denies odynophagia and Denies sore throat Card Denies chest pain, Denies palpitations and Denies dyspnea Resp Denies cough and Denies dyspnea GI Denies abdominal pain, Denies constipation, Denies dysphagia, Denies heartburn, Denies diarrhea, Denies nausea, Denies odynophagia and Denies vomiting Denies difficulty voiding, Denies nocturia, Denies dysuria and Denies urinary urgency Musc Denies back pain, Reports arthralgias (on and off, over the knees) and Denies neck pain Skin/Breast Denies rash Neuro Denies dizziness and Denies headache(s) Endo Denies fatigue and Denies palpitations Physical exam (Primary Care) Vital Signs: Last Vital Signs Pulse 66 11/22/23 08:59 BP 110/76 11/22/23 08:59 Pulse Ox 96 11/22/23 08:59 Oxygen Delivery Method Room Air 11/22/23 08:59 BMI result Body Mass Index 20.0 Tobacco/Smoking Status: Tobacco use Status Tobacco use date assessed 11/22/23 11/22/23 09:06 Patient Tobacco Use Status Former Tobacco user 11/22/23 09:06 e-Cigarette/Vaping Use Never Used 11/22/23 09:06 PHQ-9: PHQ-9 Score PHQ-9: Total score 0 11/22/23 09:06 Depression Screening Interpretation: Negative Thrive Assessment: Date of Thrive Assessment Date Thrive assessed 11/22/23 11/22/23 09:06 Currently or been in a relationship where the following occur: No concerns reported Const General: no acute distress and alert HENMT Ears: TM's normal bilaterally and EAC's normal Throat: Yes posterior oropharynx normal and Yes tonsils normal (no TP congestion) Neck Neck: Yes no lymphadenopathy and Yes supple Thyroid: Thyroid normal and nontender Carotids: no bruits Resp Auscultation: clear to auscultation bilaterally, no rales and no wheezes Cardio Rate: regular rate Rhythm: regular rhythm Heart sounds: no murmurs GI Palpation (GI): Soft to palpation and nontender Auscultation: normal bowel sounds General: Yes no CVA tenderness Back/Spine/Pelvis Back: no CVA tenderness Thoracic/Lumbar Spine: No lumbar spinal tenderness Skin Rashes: no rashes Extrem General: Yes no clubbing, cyanosis or edema Results Reviewed Results Reviewed: Laboratory Tests 11/20/23 11/20/23 08:08 08:10 WBC 6.1 Hgb 14.9 Hct 45.2 Plt Count 182 Sodium 141 Potassium 4.5 Creatinine 0.76 Estimated GFR > 60 Fasting Glucose 89 Calcium 9.3 AST 20 ALT 20 Triglycerides 77 Cholesterol 205 H LDL Cholesterol, Calc 116 H HDL Cholesterol 74 TSH 2.89 Free T4 1.20 Ur Specific [place] 1.020 Urine Protein Negative Urine Glucose (UA) Negative Urine Blood Negative Urine Nitrite Negative Ur Leukocyte Esterase Small (1+) H Assessment and Plan Assessment & Plan (1) Pure hypercholesterolemia: Code(s): E78.00 - Pure hypercholesterolemia, unspecified Plan: Results of her labs done a couple of weeks ago?reviewed and discussed with patient Reinforced low cholesterol diet Continue Rosuvastatin 5 mg QD Will recheck her labs and fasting lipids in 4 months for follow-up (2) Acquired hypothyroidism: Code(s): E03.9 - Hypothyroidism, unspecified Plan: Her TFTs have remained normal on her recent labs Continue Levothyroxine 25 mcg QD Will recheck her TFTs in 4 months for follow up (3) Erosive gastritis: Code(s): K29.60 - Other gastritis without bleeding Plan: Patient had upper GI series done a few months ago that showed mildly thickened gastric rugal folds and multiple foci of contrast pooling in the fundus, body and antrum of the stomach, suggestive of erosive gastritis and an EGD was recommended for further evaluation She underwent both EGD and repeat colonoscopy on 07/17/2023 and other than a mild hiatal hernia, her EGD and colonoscopy both came back normal Esophageal and GE junction biopsies also both came back normal Patient has been advised to continue with dietary restrictions/precautions to avoid triggering her symptoms but she states that her symptoms have improved a lot over the past few months Follow up with GI as scheduled or as needed (4) Allergic rhinitis: Code(s): J30.9 - Allergic rhinitis, unspecified Qualifiers: Allergic rhinitis trigger: unspecified Allergic rhinitis seasonality: unspecified Qualified Code(s): J30.9 - Allergic rhinitis, unspecified Plan: Continue Montelukast 10 mg QD - patient stopped using her nasal spray as it was causing recurrent hoarseness (5) Dyspnea: Comment: PFT done on 02/03/[address] [facility] came back completely normal; chest x-rays also came out normal Pulmonary evaluation/consultation revealed no pulmonary etiology for her dysp elizabeth; Metacholine challenge test in 02/2020 was normal Code(s): R06.00 - Dyspnea, unspecified Qualifiers: Dyspnea type: unspecified Qualified Code(s): R06.00 - Dyspnea, unspecified Plan: Her respiratory symptoms (dyspnea) have reportedly improved significantly since she was started on Montelukast 10 mg QD late last year She was seen by an income tax expert previously and was diagnosed with possible hyperreactive airway She was initially started on Flovent HFA 110 mcg 1 inhalation BID but she again had the same issue of hoarseness as she did with Qvar in the past so she stopped using her inhalers; has had no problems so far with oral Montelukast Follow up with income tax expert as scheduled or as needed (6) Vitamin D deficiency: Code(s): E55.9 - Vitamin D deficiency, unspecified Plan: Continue Vitamin D3 2000 units QD (7) Right hip pain: Code(s): M25.551 - Pain in right hip Plan: X-rays of the right hip done a few months ago came out normal States that her right hip symptoms have improved with physical therapy over the past couple of months but continue to bother her often Follow up with orthopedics as scheduled (8) Osteoarthritis of both knees: Code(s): M17.0 - Bilateral primary osteoarthritis of knee Qualifiers: Osteoarthritis type: primary Qualified Code(s): M17.0 - Bilateral primary osteoarthritis of knee Plan: Gets cortisone injection(s) from orthopedics when needed for symptomatic relief States that her knee pain have improved a lot since she cut back on her pickleball sessions to just 3 times a week Follow up with orthopedics as scheduled Plan Follow up in 4 months Orders: Orders Complete Blood Count Auto Diff 4 Months D64.9 - Anemia, unspecified Comprehensive Busy. Panel Fast 4 Months E78.00 - Pure hypercholesterolemia, unspecified Lipid Panel 4 Months E78.00 - Pure hypercholesterolemia, unspecified Thyroid Stimulating Hormone 4 Months E03.9 - Hypothyroidism, unspecified Free T4 (Free Thyroxine) 4 Months E03.9 - Hypothyroidism, unspecified Coding Level of Care Code Est Pt Level 4 (60714) Diagnoses Pure hypercholesterolemia E78.00 Acquired hypothyroidism E03.9 Erosive gastritis K29.60 Allergic rhinitis, unspecified seasonality, unspecified trigger J30.9 Allergic rhinitis trigger: unspecified Allergic rhinitis seasonality: unspecified Dyspnea, unspecified type R06.00 Dyspnea type: unspecified Vitamin D deficiency E55.9 Right hip pain M25.551 Primary osteoarthritis of both knees M17.0 Osteoarthritis type: primary
[2023-11-22 08:59] VITALS: BP 110/76; PULSE 66; O2SAT 96
== END 2023-11-22 09:30 | disposition home or self-care (01) ==
PROVIDERS: PCP Internal Medicine; Visit Provider Internal Medicine
DX: E78.00 Pure hypercholesterolemia, unspecified (principal); E03.9 Hypothyroidism, unspecified; K29.60 Other gastritis without bleeding; J30.9 Allergic rhinitis, unspecified; R06.00 Dyspnea, unspecified; E55.9 Vitamin D deficiency, unspecified; M25.551 Pain in right hip; M17.0 Bilateral primary osteoarthritis of knee

== ENCOUNTER → 2023-11-22 08:58 | Outpatient (BNVA) | payer BC, SELFPAY | PROVIDERS: PCP Internal Medicine; Visit Provider Internal Medicine | DX: E78.00 Pure hypercholesterolemia, unspecified (principal); E03.9 Hypothyroidism, unspecified; K29.60 Other gastritis without bleeding; J30.9 Allergic rhinitis, unspecified; R06.00 Dyspnea, unspecified; E55.9 Vitamin D deficiency, unspecified; M25.551 Pain in right hip; M17.0 Bilateral primary osteoarthritis of knee; Z79.899 Other long term (current) drug therapy | CPT/HCPCS: 96127 ==

== ENCOUNTER 2024-01-18 09:02 | Outpatient (AMB) | payer BC, SELFPAY ==
--- NOTE | 2024-01-18 09:05 | A.OFFVIS_ITS ---
Intake Visit Reasons: OV, Bilat knee inj. last inj 10/12/23 Intake Note: Araceli is a 63 year old female who presents today for a follow up of her bilateral knee OA, last injection 10/12/23. Patient reports her last injection gave her relief and she would like to repeat. Allergies doxycycline Allergy (Severe, Verified 01/18/24 09:11) Hives atorvastatin Adverse Reaction (Intermediate, Verified 01/18/24 09:11) persistent aching in legs bandages Allergy (Severe, Uncoded 11/22/23 09:14) Rash HPI HPI OV, Bilat knee inj. last inj 10/12/23: Details: 63-year-old female who presents in the office today for a follow-up of bilateral knee osteoarthritis. I last saw the patient in the office on 10/12/23, when she received cortisone injection in the bilateral knees. While in the office today, the patient reports her last cortisone injection in the bilateral knees provided her relief. She would like to have a repeat injection today. [facility] Medical History Asthma Acquired hypothyroidism Osteoarthritis of both knees Vitamin D deficiency Multiple nevi Allergic rhinitis Airway hyperreactivity Pure hypercholesterolemia Dyspnea Surgical History History of esophagogastroduodenoscopy (EGD) History of colonoscopy History of tubal ligation Family History Father Stroke Diabetes Hypertension Mother Breast cancer Paternal Aunt Breast cancer Maternal Aunt Colon cancer Social History Housing: House Alcohol intake: current Alcohol intake frequency: holidays/special occasions only Patient Tobacco Use Status: Former Tobacco user e-Cigarette/Vaping Use: Never Used Second Hand Smoke Exposure: Yes service: No Current occupational status: employed Cognitive needs: No Hearing needs: No Vision needs: No Review of Systems Const All systems reviewed & are unremarkable except as noted in HPI and below Physical Exam Const General: cooperative, healthy appearing and no acute distress Resp Effort & Inspection: normal respiratory effort and able to speak in complete sentences Cardio Rate: regular rate Peripheral pulses: Peripheral pulses 2+ throughout GI Palpation (GI): Soft to palpation Skin Lesions: no lesions Rashes: no rashes Extrem Other: Bilateral knee: Normal to inspection. No ecchymosis or erythema.Mild to moderate effusion. No tenderness to palpation to the medial or lateral joint lines. Full knee extension and flexion. Mild crepitus felt wit ROM. Negative Zeeshan's. Negative anterior draw. NVI. Office Procedures AMB Joint Injection/Aspiration Joint Injection/Aspiration Primary Site: right knee Secondary Site: left knee Prep: site was prepped using aseptic technique, ethochloride spray was applied and injection warnings given Injected: 80 mg of, DepoMedrol, with 8 mL of (2% plain lido ) and in the joint Approach Used: anterolateral Procedure: The patient tolerated the procedure well, but had some pain with the injection and there was some relief with the local anesthesia Coding 81252 - Large joint Procedure code (CPT) selection complete Assessment & Plan Assessment & Plan (1) Osteoarthritis of right knee: Code(s): M17.11 - Unilateral primary osteoarthritis, right knee Category: Medical Qualifiers: Osteoarthritis type: unspecified Qualified Code(s): M17.11 - Unilateral primary osteoarthritis, right knee (2) Osteoarthritis of left knee: Code(s): M17.12 - Unilateral primary osteoarthritis, left knee Category: Medical Qualifiers: Osteoarthritis type: unspecified Qualified Code(s): M17.12 - Unilateral primary osteoarthritis, left knee Plan Ms. Elias is a 63-year-old female who presents in the office today for a follow-up of bilateral knee osteoarthritis. I last saw the patient in the office on 10/12/23, when she received cortisone injection in the bilateral knees. While in the office today, the patient reports her last cortisone injection in the bilateral knees provided her relief. She would like to have a repeat injection today. The patient was offered a cortisone injection in the bilateral knees with 80 mg of Depo-Medrol. The patient was explained the risks, benefits, and alternatives to receiving this injection. After receiving consent for the injection, the p atient had the procedure done while in the office today. The patient tolerated the procedure well with no complications. Follow-up will be PRN, or sooner if needed. Patient Instructions: Scribed by Savanna Morales medical practice administrator, for Pastora CHAVESC on 01/18/24 at 9:21 am EST. Coding Level of Care Code Est Pt Level 3 (69845) Diagnoses Osteoarthritis of right knee, unspecified osteoarthritis type M17.11 Osteoarthritis type: unspecified Osteoarthritis of left knee, unspecified osteoarthritis type M17.12 Osteoarthritis type: unspecified CPT Codes Coding - 64893 Large joint: 06160 - Large joint ([id number])
== END 2024-01-18 09:20 | disposition home or self-care (01) ==
PROVIDERS: PCP Internal Medicine; Visit Provider Physician Assistant
DX: M17.0 Bilateral primary osteoarthritis of knee (principal)
CPT/HCPCS: 20610; 99213

== ENCOUNTER → 2024-01-18 09:02 | Outpatient (BNVA) | payer BC, SELFPAY | PROVIDERS: PCP Internal Medicine; Visit Provider Physician Assistant | DX: M17.0 Bilateral primary osteoarthritis of knee (principal) | CPT/HCPCS: 20610; J1010; J2003 ==

== ENCOUNTER 2024-02-16 08:08 | Outpatient (REF) | payer BC, SELFPAY ==
--- OUTSIDE RECORDS SUMMARY | 2024-02-16 08:11 | XMS_ITS ---
Author Organization [facility] Address [address] [place] [address] [place] [address] Care Team Providers Care Pump Assembler Name Role Phone Wayne HAYES, [place] Primary Care Provider UnaKing Maloney [phone] MEDICATIONS Medication SIG (Take, Route, Frequency, Duration) Notes Start Date End Date Status Levothyroxine Sodium 25 MCG Oral for 90 Unknown Montelukast Sodium 10 MG TAKE 1 TABLET B Y MOUTH EVERY DAY Oral for 90 Unknown Multivitamin - 1 tablet Orally Once a day for 30 day(s) Unknown Rosuvastatin Calcium 5 MG TAKE 1 TABLET BY MOUTH EVERY DAY Oral for 30 Unknown Encounters Encounter Location Date Provider Diagnosis [facility] [address] [place] [id number] 02/05/2024 King De PLAN OF TREATMENT No Information
--- OUTSIDE RECORDS SUMMARY | 2024-02-16 08:11 | XMS_ITS ---
Author Organization [facility] Address [address] [place] [id number] Care Team Providers Care Traffic Controller Cable Name Role Phone Wayne HAYES, [place] Primary Care Provider Unava ilable King De Unavailable [phone] REASON FOR VISIT Add Upper endo to her colonoscopy PROBLEMS Problem Type ICD Code Onset Dates Problem Status W/U Status Risk SNOMED Code Notes Problem Abnormal UGI series (R93.3) Active confirmed Encounters Encounter Location Date Provider Diagnosis [facility] [address] [place] [phone] 07/13/2023 King De Abnormal UGI series R93.3 ASSESSMENTS Encounter Date Diagnosis Assessment Notes Treatment Notes Treatment Clinical Notes 07/13/2023 Abnormal UGI series (ICD-10 - R93.3) PLAN OF TREATMENT Future Test Test Name Order Date UPPER GI ENDOSCOPY 07/13/2023
--- OUTSIDE RECORDS SUMMARY | 2024-02-16 08:11 | XMS_ITS ---
Author Organization [facility] Address [address] [place] [address] Care Team Providers Care Transportation Agent Name Role Phone Wayne HAYES, [place] Primary Care Provider Unava ilable King De Unavailable [phone] REASON FOR VISIT screening colon PROBLEMS Problem Type ICD Code Onset Dates Problem Status W/U Status Risk SNOMED Code Notes Problem Diverticulosis of large intestine without perforation or abscess without bleeding (K57.30) Active confirmed Diverticul ar disease of colon ([id number]) Encounters Encounter Location Date Provider Diagnosis [facility] Outpatient [address] [place] [id number] 07/17/2023 King De Encounter for scre ening colonoscopy Z12.11 ; Diverticulosis of large intestine without perforation or abscess without bleeding K57.30 ; Other hemorrhoids K64.8 ; Other specified disease of esophagus K22.89 ; Hiatal hernia K44.9 and Abn findings-GI tract R93.3 ASSESSMENTS Encounter Date Diagnosis Assessment Notes Treatment Notes Treatment Clinical Notes 07/17/2023 Encounter for screening colonoscopy (ICD-10 - Z12.11) 07/17/2023 Diverticulosis of large intestine without perforation or abscess without bleeding (ICD-10 - K57.30) 07/17/2023 Other hemorrhoids (ICD-10 - K64.8) 07/17/2023 Other specified disease of esophagus (ICD-10 - K22.89) 07/17/2023 Hiatal hernia (ICD-1 0 - K44.9) 07/17/2023 Abn findings-GI trac t (ICD-10 - R93.3) PLAN OF TREATMENT No Information
--- OUTSIDE RECORDS SUMMARY | 2024-02-16 08:12 | XMS_ITS | Patient Health Record ---
Author Organization [facility] Address [address] [place] [address] Care Team Providers Care Revenue Coordinator Name Role Phone Wayne HAYES, [place] Primary Care Provider Unava King Ocasio [phone] ALLERGIES No Known Allergies RESULTS Component Value Reference Range Notes Pathology Reviewed date:08/05/2023 07:42:17 PM Interpretation: Performing Lab:[facility], [address] [place] [phone] Notes/Report: REASON FOR REFERRAL No Information MEDICATIONS Medication SIG (Take, Route, Frequency, Duration) [...] MOUTH EVERY DAY Oral for 30 Unknown SOCIAL HISTORY Sex Assigned At : Social History Observation Description Sex Assigned At Unknown PROBLEMS Problem Type ICD Code Onset Dates Problem Status W/U Status Risk SNOMED Code Notes Problem Colon cancer screening (Z12.11) Active confirmed 579474268 Problem Diverticulosis of large intestine without perforation or abscess without bleeding (K57.30) Active confirmed Diverticul ar disease of colon (400279317) Problem Preprocedural examination (Z01.818) Active confirmed [id number] Problem Abnormal UGI series (R93.3) Active confirmed VITAL SIGNS Temperature 97.7 degrees Fahrenheit 03/28/2023 Blood pressure diastolic 00 mm Hg 03/28/2023 Height 68.50 in 03/28/2023 Blood pressure systolic 00 mm Hg 03/28/2023 Weight 159 lbs 03/28/2023 BMI 23.82 kg/m2 03/28/2023 Encounters Encounter Location Date Provider Diagnosis [facility] Outpatient [address] [place] [id number] 06/28/2023 King De [facility] Outpatient [address] [place] [id number] 07/17/2023 King De Encounter for screen ing colonoscopy Z12.11 ; Diverticulosis of large intestine without perforation or abscess without bleeding K57.30 ; Other hemorrhoids K64.8 ; Other specified disease of esophagus K22.89 ; Hiatal hernia K44.9 and Abn findings-GI tract R93.3 [facility] [address] [place] [phone] 03/28/2023 King De Colon cancer screeni ng Z12.11 and Preprocedural examination Z01.818 [facility] [address] [place] [phone] 07/13/2023 King De Abnormal UGI series R93.3 [facility] [address] [place] [address] Drive [address] [place] [phone] 02/05/2024 King De ASSESSMENTS Encounter Date Diagnosis Assessment Notes Treatment Notes Treatment Clinical Notes 07/17/2023 Encounter for screening colonoscopy (ICD-10 - Z12.11) 07/17/2023 Diverticulosis of large intestine without perforation or abscess without bleeding (ICD-10 - K57.30) 03/28/2023 Colon cancer screening (ICD-10 - Z12.11) 03/28/2023 Preprocedural examination (ICD-10 - Z01.818) 07/13/2023 Abnormal UGI series (ICD-10 - R93.3) 07/17/2023 Other hemorrhoids (ICD-10 - K64.8) 07/17/2023 Other specified disease of esophagus (ICD-10 - K22.89) 07/17/2023 Hiatal hernia (ICD-1 0 - K44.9) 07/17/2023 Abn findings-GI trac t (ICD-10 - R93.3) PLAN OF TREATMENT Future Test Test Name Order Date COLONOSCOPY 02/15/2012 COLONOSCOPY 03/28/2023 UPPER GI ENDOSCOPY 07/13/2023 Insurance Providers Payer Name Payer Address Payer Phone Subscriber Number Group Number Insured Name Patient Relationship to Insured Coverage Start Date Coverage End Date [facility] [address] [place], [place] [id number] JOSHUA KAUFMAN Self - patient is the insured MEDICAL (GENERAL) HISTORY Medical History History ICD Code Denies MD,DM,CVA,renal disease Negative screening colonoscopy in 2012 Hypothyroidism Hyperlipdeimia Asthma Surgical History Surgery Date(Month/Year) Tubal ligation
== END 2024-02-16 08:09 | disposition home or self-care (01) ==
LOC: HO.MAMMO 08:08
PROVIDERS: PCP Internal Medicine; Visit Provider Internal Medicine
DX: Z12.31 Encounter for screening mammogram for malignant neoplasm of breast (principal)
CPT/HCPCS: 77063; 77067

== ENCOUNTER → 2024-02-16 08:15 | Outpatient (BNV) | payer BC, SELFPAY | PROVIDERS: PCP Internal Medicine; Visit Provider Internal Medicine | DX: Z12.31 Encounter for screening mammogram for malignant neoplasm of breast (principal) | CPT/HCPCS: 77063; 77067 ==

== ENCOUNTER 2024-03-22 09:03 | Outpatient (REF) | payer BC, SELFPAY ==
[2024-03-22 09:22] LABS: MANUAL DIFF FLAG NO
[2024-03-22 09:46] LABS: Basophils Absolute Auto 0.1 X10*3/uL (0.0-0.2); Basophils Percent Auto 1.2 % (0-2); Eosinophils Absolute Auto 0.1 X10*3/uL (0.0-0.4); Eosinophils Percent Auto 1.6 % (0-4); Hemoglobin 14.9 g/dl (12.0-16.0); Imm Gran Abs Auto 0.01 X10*3/uL (0.00-0.03); Imm Gran Pct Auto 0.2 % (0.0-0.4); Lymphocytes Absolute Auto 1.8 X10*3/uL (1.2-4.9); Lymphocytes Percent Auto 32.4 % (20-40); Mean Corpuscular HGB Conc 32.4 g/dl (31.0-35.0); Mean Corpuscular Hemoglobin 28.8 pg (27.0-33.0); Mean Corpuscular Volume 88.8 fL (80.0-98.0); Monocytes Absolute Auto 0.4 X10*3/uL (0.1-1.2); Monocytes Percent Auto 7.4 % (2-11); Neutrophils Absolute Auto 3.3 x10*3/uL (2.0-8.3); Neutrophils Percent Auto 57.2 % (45-73); Platelet Count 186 X10*3/uL (160-400); Red Blood Count 5.18 X10*6/uL (4.20-5.50); Red Cell Distribution Width 13.4 % (11.0-16.0); White Blood Count 5.7 X10*3/uL (4.8-10.8)
[2024-03-22 10:41] LABS: Appearance Urine Clear; Color Urine Yellow; Glucose Urine UA Negative (Negative); Leukocyte Esterase Urine Trace (Negative); Nitrite Urine Negative (Negative); PH 6.5 (5.0-9.0); UMIC TRIGGER UACC YES; Urine Blood Negative (Negative); Urine Ketones Negative (Negative); Urine Protein Negative (Neg-Trace)
[2024-03-22 10:45] LABS: Bacteria Urine None Seen (None Seen); Hyaline Casts Urine 0-2 /LPF (0-2); RBC Urine 0-2 /HPF (0-2); Squamous Epithelial Cell Urine 0-2 /HPF (0-2); WBC Urine 0-5 /HPF (0-5)
[2024-03-22 13:14] LABS: Free T4 (Free Thyroxine) 1.04 ng/dL (0.71-1.85); Thyroid Stimulating Hormone 2.73 uIU/mL (0.32-4.0)
[2024-03-22 13:32] LABS: Alanine Aminotransferase 76 U/L (0-31); Albumin Level 4.5 g/dL (3.5-5.0); Anion Gap 12 (12-20); Aspartate Amino Transferase 40 U/L (5-31); Bilirubin Total 0.8 mg/dL (0.0-1.0); Blood Urea Nitrogen 18 mg/dL (9-16); Calcium 9.5 mg/dL (8.4-10.2); Carbon Dioxide 28 mmol/L (22-29); Chloride 107 mmol/L (96-108); Cholesterol 207 mg/dL (<200); Estimated Glomerular Filt Rate > 60; Glucose Fasting 86 mg/dL (60-99); HDL Cholesterol 73 mg/dL (>40); LDL Cholesterol Calculated 113 mg/dL (<100); Potassium 4.6 mmol/L (3.3-5.1); Sodium 142 mmol/L (135-145); Total Protein 7.1 g/dL (6.5-8.0); Triglycerides 109 mg/dL (<150)
[2024-03-22 14:21] LABS: Alkaline Phosphatase 72 U/L (39-117)
== END 2024-03-22 09:04 | disposition home or self-care (01) ==
LOC: HO.LAB 09:03
PROVIDERS: PCP Internal Medicine; Visit Provider Internal Medicine
DX: E78.00 Pure hypercholesterolemia, unspecified (principal); E03.9 Hypothyroidism, unspecified; D64.9 Anemia, unspecified; R30.0 Dysuria
CPT/HCPCS: 36415; 80053; 80061; 81001; 84439; 84443; 85025

== ENCOUNTER 2024-03-26 09:16 | Outpatient (AMB) | payer BC, SELFPAY ==
[2024-03-26 09:20] VITALS: BP 112/78; PULSE 88; O2SAT 96; BMI 19.7
--- NOTE | 2024-03-26 09:20 | MHC.PC.OV ---
Vital Signs 03/26/24 09:20 Height 5 ft 8.5 in Weight 131 lb 8 oz BMI 19.7 BP 112/78 Blood Pressure Location Lt brachial Position Sitting Pulse 88 Pulse Source Pulse Oximeter Pulse Oximetry (%) 96 Oxygen Delivery Method Room Air Intake Visit Reasons: hyperlipidemia, hypothyroidism, GERD Plastic Press Molder Required: No Accompanied by: Self / Same As Patient Allergies doxycycline Allergy (Severe, Verified 03/26/24 09:47) Hives atorvastatin Adverse Reaction (Intermediate, Verified 03/26/24 09:47) persistent aching in legs bandages Allergy (Severe, Uncoded 03/26/24 09:47) Rash Medication List - Last Reconciled 03/26/24 by Kirk Black MD fluticasone propionate 50 mcg/actuation 1 spray intranasal DAILY 30 days levothyroxine 25 mcg PO DAILY 90 days montelukast 10 mg PO DAILY 90 days rosuvastatin 5 mg PO DAILY tizanidine 2 mg PO TID PRN Tobacco use date assessed: 03/26/24 Fall risk assessment: No Falls in past year Last assessed Fall Risk: 03/26/24 Dental Screening Dental Screen Date: 03/26/24 Did you have a dental visit in the last 12 months?: Yes Did you have a dental problem in the last 6 months where you did not have access to dental care?: No Was dental information given to patient?: Patient has dentist HPI hyperlipidemia, hypothyroidism, GERD HPI Details Patient comes in today for her follow up visit States that she has been sick since last weekend (3 days ago) with increased cough and congestion and sore throat She reportedly tested herself for COVID back then and she came out negative Recalls that she also started having some diarrhea after drinking some alcohol last Monday (6 days ago) - diarrhea has since resolved She currently denies any fever and states that her sore throat has also subsided; denies any increased headaches or dizziness Denies any chest pains; states that she still has a recurrent cough - coughs up minimal clear to whitish phlegm at times and states that her chest feels somewhat tight and she has a hard time getting a full breath in at times, especially when she is coughing a lot No nausea/vomiting, no abdominal pain No change in bowel habits noted - states that her diarrhea has resolved She had her follow up labs done a few days ago - to discuss her results [facility] Medical History Asthma Acquired hypothyroidism Osteoarthritis of both knees Vitamin D deficiency Multiple nevi Allergic rhinitis Airway hyperreactivity Pure hypercholesterolemia Dyspnea Surgical History History of esophagogastroduodenoscopy (EGD) History of colonoscopy History of tubal ligation Family History Father Stroke Diabetes Hypertension Mother Breast cancer Paternal Aunt Breast cancer Maternal Aunt Colon cancer Social History Housing: House Alcohol intake: current Alcohol intake frequency: holidays/special occasions only Patient Tobacco Use Status: Former Tobacco user e-Cigarette/Vaping Use: Never Used Second Hand Smoke Exposure: Yes service: No Current occupational status: employed Cognitive needs: No Hearing needs: No Vision needs: No Questionnaire PHQ-9 Over the last 2 weeks, how often have you been bothered by any of the following problems? 1. Little interest or pleasure in doing things: not at all 2. Feeling down, depressed, or hopeless: not at all 3. Trouble falling or staying asleep, or sleeping too much: not at all 4. Feeling tired or having little energy: not at all 5. Poor appetite or overeating: not at all 6. Feeling bad about yourself - or that you are a failure or have let yourself or your family down: not at all 7. Trouble concentrating on things, such as reading the newspaper or watching television: not at all 8. Moving or speaking so slowly that other people could have noticed. Or the opposite - being so fidgety or restless that you have been moving around a lot more than usual: not at all 9. Thoughts that you would be better off or of hurting yourself in some way: not at all Total score: 0 Depression Screening Interpretation: Negative Depression Screening Done: Yes 65729 - PHQ-9 Billing: Yes Source: Developed by Drs. King Goldman, Anastacia Wilkinson, Devan Titus and colleagues, with an educational oscar from [employer]. Thrive Questionnaire Date Thrive assessed: 03/26/24 I am a: Patient What is your living situation today?: I have a steady place to live Within the past 12 months, did the food you bought not last and you didn't have the money to get more?: Never true Within the past 12 months, did you worry whether your food would run out before you got money to buy more?: Never true Do you have trouble paying for medicines?: No Do you have trouble getting transportation to medical appointments?: No Do you have trouble paying your heating and electricity bill?: No Do you have trouble taking care of your child, family member or friend?: No Do you have trouble with day-to-day activities such as bathing, preparing meals, shopping, managing finances, etc.?: No Are you currently unemployed and looking for a job?: No Are you interested in more education?: No Please select the resources that you would like help with: None Currently or been in a relationship where the following occur: No concerns reported THRIVE Score: 0 AUDIT C Alcohol Use Questionnaire (AUDIT-C) 1. How often do you have a drink containing alcohol?: Monthly or less 2. How many drinks containing alcohol do you have on a typical day when you are drinking?: 1 or 2 3. How often do you have six or more drinks on one occasion?: Never Total Score: 1 Score Reviewed/Action Taken: Yes JESUS-7 AMB Questionnaire JESUS-7 Date JESUS - 7 assessed: 03/26/24 Feeling nervous, anxious, or on edge: 0 = Not at all Not being able to stop or control worryin = Not at all Worrying too much about different things: 0 = Not at all Trouble relaxin = Not at all Being so restless that it is hard to sit still: 0 = Not at all Becoming easily annoyed or irritable: 0 = Not at all Feeling afraid as if something awful might happen: 0 = Not at all Total JESUS-7 score (0-4 normal; 5-9 mild; 10-14 moderate; 15-21 severe): 0 Source: Developed by Drs. King Goldman, Anastacia Wilkinson, Devan Titus and colleagues, with an educational oscar from [employer]. Review of Systems Const Denies chills, Reports fatigue, Denies fever(s) and Denies headache(s) ENT Denies dysphagia, Denies dizziness, Denies otalgia, Denies headache(s), Reports nasal congestion, Denies neck pain, Denies odynophagia and Denies sore throat Card Denies chest pain, Denies palpitations, Reports dyspnea (especially when she is coughing a lot) and Reports dyspnea on exertion (mild) Resp Reports chest congestion (chest feels tight at times), Denies cough, Denies excessive phlegm production, Reports dyspnea (especially when she is coughing a lot), Reports dyspnea on exertion (mild) and Denies wheezing GI Denies abdominal pain, Denies constipation, Denies dysphagia, Denies heartburn, Denies diarrhea (had diarrhea for a couple of days last week), Denies nausea, Denies odynophagia and Denies vomiting Denies difficulty voiding, Denies nocturia, Denies dysuria and Denies urinary urgency Musc Denies back pain, Reports arthralgias (on and off, over the knees) and Denies neck pain Skin/Breast Denies rash Neuro Denies dizziness and Denies headache(s) Endo Reports fatigue and Denies palpitations Aller/Immun Denies wheezing Physical exam (Primary Care) Vital Signs: Last Vital Signs Pulse 88 03/26/24 09:20 BP 112/78 03/26/24 09:20 Pulse Ox 96 03/26/24 09:20 Oxygen Delivery Method Room Air 03/26/24 09:20 BMI result Body Mass Index 19.7 Tobacco/Smoking Status: Tobacco use Status Tobacco use date assessed 03/26/24 03/26/24 09:30 Patient Tobacco Use Status Former Tobacco user 03/26/24 09:30 e-Cigarette/Vaping Use Never Used 03/26/24 09:30 PHQ-9: PHQ-9 Score PHQ-9: Total score 0 03/26/24 09:30 Depression Screening Interpretation: Negative Thrive Assessment: Date of Thrive Assessment Date Thrive assessed 03/26/24 03/26/24 09:30 Currently or been in a relationship where the following occur: No concerns reported Const General: no acute distress and alert HENMT Other: (+) hearing aids in both ears Ears: TM's normal bilaterally and EAC's normal Throat: Yes tonsils normal (no TP congestion) and Yes posterior oropharynx abnormal ((+) increased erythema over the posterior pharynx) Neck Neck: Yes supple and No lymphadenopathy Thyroid: Thyroid normal Carotids: no bruits Resp Auscultation: no crackles, no rales, rhonchi (occasional) throughout, no wheezes and diminished lung sounds (slightly) bilateral Cardio Rate: regular rate Rhythm: regular rhythm Heart sounds: no murmurs GI Palpation (GI): Soft to palpation and nontender Auscultation: normal bowel sounds General: Yes no CVA tenderness Back/Spine/Pelvis Back: no CVA tenderness Thoracic/Lumbar Spine: No lumbar spinal tenderness Skin Rashes: no rashes Extrem General: Yes no clubbing, cyanosis or edema Results Reviewed Results Reviewed: Laboratory Tests 03/22/24 03/22/24 09:15 09:21 WBC 5.7 Hgb 14.9 Hct 46.0 Plt Count 186 Sodium 142 Potassium 4.6 Creatinine 0.72 Estimated GFR > 60 Fasting Glucose 86 Calcium 9.5 AST 40 H ALT 76 H Triglycerides 109 Cholesterol 207 H LDL Cholesterol, Calc 113 H HDL Cholesterol 73 TSH 2.73 Free T4 1.04 Ur Specific Armstrong 1.020 Urine Protein Negative Urine Glucose (UA) Negative Urine Blood Negative Urine Nitrite Negative Ur Leukocyte Esterase Trace H Coding Level of Care Code Est Pt Level 4 (30982) Diagnoses Respiratory tract infection J98.8 Mild intermittent asthma with acute exacerbation J45.21 Asthma severity: mild Asthma persistence: intermittent Asthma complication type: with acute exacerbation Allergic rhinitis, unspecified seasonality, unspecified trigger J30.9 Allergic rhinitis trigger: unspecified Allergic rhinitis seasonality: unspecified Pure hypercholesterolemia E78.00 Elevated LFTs R79.89 Erosive gastritis K29.60 Acquired hypothyroidism E03.9 Vitamin D deficiency E55.9 Primary osteoarthritis of both knees M17.0 Osteoarthritis type: primary Additional Codes PHQ-9 - 70027 - PHQ-9 Billing: Yes ([id number]) Assessment & Plan Assessment & Plan (1) Respiratory tract infection: Code(s): J98.8 - Other specified respiratory disorders Category: Medical Plan: Discussed with patient that this is most likely viral in etiology but these also includes COVID, influenza and RSV Will send her to the lab to get tested for these TODD and will send in Rx for her as appropriate depending on her test results Will also send her in Rx for Albuterol HFA inhaler to use 1 to 2 inhalations Q 6 hours PRN as her lungs/chest sound tight on auscultation presently She can continue with OTC cough/cold meds PRN for symptomatic relief (2) Hyperactive airway disease: Code(s): J45.909 - Unspecified asthma, uncomplicated Category: Medical Qualifiers: Asthma severity: mild Asthma persistence: intermittent Asthma complication type: with acute exacerbation Qualified Code(s): J45.21 - Mild intermittent asthma with (acute) exacerbation Plan: PFTs done on 02/03/2020 at [facility] came back completely normal; chest x-rays also came out normal at the time Pulmonary evaluation/consultation revealed no pulmonary etiology for her dyspnea; Metacholine challenge test in 02/2020 came out normal Patient's symptoms of SOB have reportedly improved significantly when she was started on Montelukast 10 mg QD a couple of years ago She was seen by an sales and events coordinator previously and was diagnosed with possible hyperreactive airway She was initially started on Flovent HFA 110 mcg 1 inhalation BID but she again had the same issue of hoarseness as she did with Qvar in the past so she stopped using her inhalers; has had no problems so far with oral Montelukast alone Follow up with sales and events coordinator as scheduled or as needed (3) Allergic rhinitis: Code(s): J30.9 - Allergic rhinitis, unspecified Category: Medical Qualifiers: Allergic rhinitis trigger: unspecified Allergic rhinitis seasonality: unspecified Qualified Code(s): J30.9 - Allergic rhinitis, unspecified Plan: Continue Montelukast 10 mg QD - patient stopped using her nasal spray as it was causing recurrent hoarseness (4) Pure hypercholesterolemia: Code(s): E78.00 - Pure hypercholesterolemia, unspecified Category: Medical Plan: Results of her labs done a few days ago?reviewed and discussed with patient Reinforced low cholesterol diet Continue Rosuvastatin 5 mg QD Will recheck her labs and fasting lipids in 4 months for follow-up (5) Elevated LFTs: Code(s): R79.89 - Other specified abnormal findings of blood chemistry Category: Medical Plan: Patient is advised that her LFTs have increased slightly on her recent labs This appears to coincide with the time her diarrhea started last week, after which she started with her current respiratory symptoms She denies any abdominal pain and states that her diarrhea from last week has resolved Will continue to monitor this for now and recheck her LFTs in a few months - if they remain elevated or goes up any further, may need to consider taking her off her statin Rx (6) Erosive gastritis: Code(s): K29.60 - Other gastritis without bleeding Category: Medical Plan: Patient had upper GI series done last year (2023) that showed mildly thickened gastric rugal folds and multiple foci of contrast pooling in the fundus, body and antrum of the stomach, suggestive of erosive gastritis and an EGD was recommended for further evaluation She underwent both EGD and repeat colonoscopy on 07/17/2023 and other than a mild hiatal hernia, her EGD and colonoscopy both came back normal Esophageal and GE junction biopsies also both came back normal Patient has been advised to continue with dietary restrictions/precautions to avoid triggering her symptoms but she states that her symptoms have improved a lot over the past several months Follow up with GI as scheduled or as needed (7) Acquired hypothyroidism: Code(s): E03.9 - Hypothyroidism, unspecified Category: Medical Plan: Her TFTs remain normal on her recent labs Continue Levothyroxine 25 mcg QD Will recheck her TFTs in 4 months for follow up (8) Vitamin D deficiency: Code(s): E55.9 - Vitamin D deficiency, unspecified Category: Medical Plan: Continue Vitamin D3 2000 units QD (9) Osteoarthritis of both knees: Code(s): M17.0 - Bilateral primary osteoarthritis of knee Category: Medical Qualifiers: Osteoarthritis type: primary Qualified Code(s): M17.0 - Bilateral primary osteoarthritis of knee Plan: Patient gets cortisone injection(s) from orthopedics when needed for symptomatic relief States that her knee pain have improved a lot since she cut back on her pickleball sessions to just 3 times a week Follow up with orthopedics as scheduled Plan To return in 4 months for her annual physical examination Orders: Orders Comprehensive Melrude. Panel Fast 4 Months E78.00 - Pure hypercholesterolemia, unspecified Vitamin D 25-OH Total 4 Months E55.9 - Vitamin D deficiency, unspecified SARS-CoV2/FLU/RSV Today J98.8 - Other specified respiratory disorders Complete Blood Count Auto Diff 4 Months D64.9 - Anemia, unspecified Lipid Panel 4 Months E78.00 - Pure hypercholesterolemia, unspecified UA CC w/rflx Micro + Cult 4 Months R30.0 - Dysuria Free T4 (Free Thyroxine) 4 Months E03.9 - Hypothyroidism, unspecified Thyroid Stimulating Hormone 4 Months E03.9 - Hypothyroidism, unspecified Medications: New albuterol sulfate 90 mcg/actuation (Ventolin HFA) 2 puffs inhalation Q6H 30 days PRN 8.5 grams 1RF shortness of breath or wheezing
--- OUTSIDE RECORDS SUMMARY | 2024-03-26 09:43 | XMS_ITS | Patient Health Record ---
Author Organization [facility] Address [address] [place] [address] Care Team Providers Care Network Cabler Name Role Phone Wayne HAYES, [place] Primary Care Provider Unava King Ocasio [phone] ALLERGIES No Known Allergies RESULTS Component Value Reference Range Notes Pathology Reviewed date:08/05/2023 07:42:17 PM Interpretation: Performing Lab:[facility], [address] [place] [phone] Notes/Report: REASON FOR REFERRAL No Information MEDICATIONS [...] Problem Colon cancer screening (Z12.11) Active confirmed 899817577 Problem Diverticulosis of large intestine without perforation or abscess without bleeding (K57.30) Active confirmed Diverticul ar disease of colon (601402310) Problem Preprocedural examination (Z01.818) Active confirmed [id number] Problem Abnormal UGI series (R93.3) Active confirmed VITAL SIGNS Temperature 97.7 degrees Fahrenheit 03/28/2023 Blood pressure diastolic 00 mm Hg 03/28/2023 Height 68.50 in 03/28/2023 Blood pressure systolic 00 mm Hg 03/28/2023 Weight 159 lbs 03/28/2023 BMI 23.82 kg/m2 03/28/2023 Encounters Encounter Location Date Provider Diagnosis [facility] Outpatient [address] [place] [id number] 06/28/[address] [facility] Outpatient [address] [place] [id number] 07/17/2023 King De Encounter for screen ing colonoscopy Z12.11 ; Diverticulosis of large intestine without perforation or abscess without bleeding K57.30 ; Other hemorrhoids K64.8 ; Other specified disease of esophagus K22.89 ; Hiatal hernia K44.9 and Abn findings-GI tract R93.3 [facility] [address] [place] [phone] 03/28/2023 King De Colon cancer screeni ng Z12.11 and Preprocedural examination Z01.818 [facility] [address] [place] [phone] 07/13/2023 King De Abnormal UGI series R93.3 [facility] [address] [place] [address] Drive [address] [place] [phone] 02/05/2024 King De ASSESSMENTS Encounter Date Diagnosis [...] Insured Coverage Start Date Coverage End Date [facility] [id number] [place], [place] [id number] JOSHUA KAUFMAN Self - patient is the insured MEDICAL (GENERAL) HISTORY Medical History History ICD Code Denies ND,DM,CVA,renal disease Negative screening colonoscopy in 2012 Hypothyroidism Hyperlipdeimia Asthma Surgical History Surgery Date(Month/Year) Tubal ligation
--- OUTSIDE RECORDS SUMMARY | 2024-03-26 09:43 | XMS_ITS ---
Author Organization [facility] Address [address] [place] [phone] Care Team Providers Care School Transportation Supervisor Name Role Phone Wayne HAYES, [place] Primary Care Provider Unava ilable King De Unavailable [phone] REASON FOR VISIT Add Upper endo to her colonoscopy PROBLEMS Problem Type ICD Code Onset Dates Problem Status W/U Status Risk SNOMED Code Notes Problem Abnormal UGI series (R93.3) Active confirmed Encounters Encounter Location Date Provider Diagnosis [facility] [address] [place] [phone] 07/13/2023 King De Abnormal UGI series R93.3 ASSESSMENTS Encounter Date Diagnosis Assessment Notes Treatment Notes Treatment Clinical Notes 07/13/2023 Abnormal UGI series (ICD-10 - R93.3) PLAN OF TREATMENT Future Test Test Name Order Date UPPER GI ENDOSCOPY 07/13/2023
--- OUTSIDE RECORDS SUMMARY | 2024-03-26 09:44 | XMS_ITS ---
Author Organization [facility] Address [address] [place] [address] [place] [address] Care Team Providers Care Sound Effects Person Name Role Phone Wayne HAYES, [place] Primary Care Provider UnaKing Maloney [phone] MEDICATIONS Medication SIG (Take, Route, Frequency, Duration) [...] Unknown Encounters Encounter Location Date Provider Diagnosis [facility] [address] [place] [phone] 02/05/2024 King De PLAN OF TREATMENT No Information
--- OUTSIDE RECORDS SUMMARY | 2024-03-26 09:44 | XMS_ITS ---
Author Organization [facility] Address [address] [place] [address] Care Team Providers Care Asbestos Coverer Name Role Phone Wayne HAYES, [place] Primary Care Provider Unava ilable King De Unavailable [phone] REASON FOR VISIT screening colon PROBLEMS Problem Type ICD Code Onset Dates Problem Status W/U Status Risk SNOMED Code Notes Problem Diverticulosis of large intestine without perforation or abscess without bleeding (K57.30) Active confirmed Diverticul ar disease of colon (913454117) Encounters Encounter Location Date Provider Diagnosis [facility] [place] [address] [place] [phone] 07/17/2023 King De Encounter for scre ening [...]
== END 2024-03-26 09:58 | disposition home or self-care (01) ==
PROVIDERS: PCP Internal Medicine; Visit Provider Internal Medicine
DX: J98.8 Other specified respiratory disorders (principal); J45.21 Mild intermittent asthma with (acute) exacerbation; J30.9 Allergic rhinitis, unspecified; E78.00 Pure hypercholesterolemia, unspecified; R79.89 Other specified abnormal findings of blood chemistry; K29.60 Other gastritis without bleeding; E03.9 Hypothyroidism, unspecified; E55.9 Vitamin D deficiency, unspecified; M17.0 Bilateral primary osteoarthritis of knee

== ENCOUNTER 2024-03-26 09:16 | Outpatient (REF) | payer BC, SELFPAY ==
[2024-03-26 11:28] LABS: Influenza A PCR NEGATIVE (Negative); Influenza B PCR NEGATIVE (Negative); Resp Syncy Virus RNA Qual PCR NEGATIVE (Negative); SARS COV2 PCR INHOUSE NEGATIVE (Negative)
== END 2024-03-26 09:17 | disposition home or self-care (01) ==
LOC: HO.LAB 09:16
PROVIDERS: PCP Internal Medicine; Visit Provider Internal Medicine
DX: J98.8 Other specified respiratory disorders (principal); J45.21 Mild intermittent asthma with (acute) exacerbation; J30.9 Allergic rhinitis, unspecified; E78.00 Pure hypercholesterolemia, unspecified; R79.89 Other specified abnormal findings of blood chemistry; K29.60 Other gastritis without bleeding; E03.9 Hypothyroidism, unspecified; E55.9 Vitamin D deficiency, unspecified; M17.0 Bilateral primary osteoarthritis of knee; Z79.899 Other long term (current) drug therapy
CPT/HCPCS: 0241U; 96127

== ENCOUNTER → 2024-04-02 09:45 | Outpatient (BNV) | payer BC, SELFPAY | PROVIDERS: PCP Internal Medicine; Visit Provider Internal Medicine | DX: N64.89 Other specified disorders of breast (principal) | CPT/HCPCS: 77061; 77065 ==

== ENCOUNTER 2024-04-19 09:14 | Outpatient (AMB) | payer BC, SELFPAY ==
--- NOTE | 2024-04-19 09:20 | MHC.OFFVIS ---
Vital Signs 04/19/24 09:36 Height 5 ft 8 in Weight 131 lb BMI 19.9 Intake Visit Reasons: B/L knee inj (80), last inj 01/18/24 Intake Note: Araceli is a 63 year old female who presents today for a follow up of her bilateral knee OA, last injection 01/18/24. Patient reports her last injections gave her relief and she would like to repeat. Allergies doxycycline Allergy (Severe, Verified 04/19/24 09:36) Hives atorvastatin Adverse Reaction (Intermediate, Verified 04/19/24 09:36) persistent aching in legs bandages Allergy (Severe, Uncoded 03/26/24 09:47) Rash HPI HPI B/L knee inj (80), last inj 01/18/24: Details: Ms. Moulton is a 63-year-old female who presents today for a follow up of her bilateral knee OA, last injection 01/18/24. Patient reports her last injections gave her relief and she would like to repeat. REPLACED BY [facility] Medical History Asthma Acquired hypothyroidism Osteoarthritis of both knees Vitamin D deficiency Multiple nevi Allergic rhinitis Airway hyperreactivity Pure hypercholesterolemia Dyspnea Surgical History History of esophagogastroduodenoscopy (EGD) History of colonoscopy History of tubal ligation Family History Father Stroke Diabetes Hypertension Mother Breast cancer Paternal Aunt Breast cancer Maternal Aunt Colon cancer Social History Housing: House Alcohol intake: current Alcohol intake frequency: holidays/special occasions only Patient Tobacco Use Status: Former Tobacco user e-Cigarette/Vaping Use: Never Used Second Hand Smoke Exposure: Yes service: No Current occupational status: employed Cognitive needs: No Hearing needs: No Vision needs: No Review of Systems Const All systems reviewed & are unremarkable except as noted in HPI and below Physical Exam Vital Signs: BMI result Body Mass Index 19.9 Const General: cooperative, healthy appearing and no acute distress Resp Effort & Inspection: normal respiratory effort and able to speak in complete sentences Cardio Rate: regular rate Peripheral pulses: Peripheral pulses 2+ throughout GI Palpation (GI): Soft to palpation Skin Lesions: no lesions Rashes: no rashes Extrem Other: Bilateral knee: Normal to inspection. No ecchymosis or erythema.Mild to moderate effusion. No tenderness to palpation to the medial or lateral joint lines. Full knee extension and flexion. Mild crepitus felt wit ROM. Negative Zeeshan's. Negative anterior draw. NVI. Office Procedures AMB Joint Injection/Aspiration Joint Injection/Aspiration Primary Site: right knee Secondary Site: left knee Prep: site was prepped using aseptic technique, ethochloride spray was applied and injection warnings given Injected: 80 mg of, DepoMedrol, with 8 mL of (2% plain lidocaine) and in the joint Approach Used: anterolateral Procedure: The patient tolerated the procedure well, but had some pain with the injection and there was some relief with the local anesthesia Coding - Large joint Procedure code (CPT) selection complete Assessment & Plan Assessment & Plan (1) Osteoarthritis of left knee: Code(s): M17.12 - Unilateral primary osteoarthritis, left knee Category: Medical (2) Osteoarthritis of right knee: Code(s): M17.11 - Unilateral primary osteoarthritis, right knee Category: Medical Qualifiers: Osteoarthritis type: unspecified Qualified Code(s): M17.11 - Unilateral primary osteoarthritis, right knee Plan The patient was offered a course of injection for bilateral knees with 80 mg of DepoMedrol. The patient was explained the risks, benefits, and alternatives to receiving this injection. After receiving consent for the injection, the patient had the procedure done while in the office today. The patient tolerated the procedure well with no complications. Follow-up will be p.r.n., or sooner if needed Coding Level of Care Code Est Pt Level 3 (47418) Diagnoses Osteoarthritis of left knee M17.12 Osteoarthritis of right knee, unspecified osteoarthritis type M17.11 Osteoarthritis type: unspecified CPT Codes Coding - 65816 Large joint: 19832 - Large joint ([id number])
[2024-04-19 09:36] VITALS: BMI 19.9
--- OUTSIDE RECORDS SUMMARY | 2024-04-19 09:44 | XMS_ITS ---
Author Organization [facility] Address [address] [place] [address] Care Team Providers Care Parts Cleaner Name Role Phone Wayne HAYES, [place] Primary Care Provider Unava ilable King De Unavailable [phone] REASON FOR VISIT Add Upper endo to her colonoscopy PROBLEMS Problem Type ICD Code Onset Dates Problem Status W/U Status Risk SNOMED Code Notes Problem Abnormal UGI series (R93.3) Active confirmed Encounters Encounter Location Date Provider Diagnosis [facility] [address] [place] [phone] 07/13/2023 King De Abnormal UGI series R93.3 ASSESSMENTS Encounter Date Diagnosis Assessment Notes Treatment Notes Treatment Clinical Notes 07/13/2023 Abnormal UGI series (ICD-10 - R93.3) PLAN OF TREATMENT Future Test Test Name Order Date UPPER GI ENDOSCOPY 07/13/2023
--- OUTSIDE RECORDS SUMMARY | 2024-04-19 09:44 | XMS_ITS ---
Author Organization [facility] Address [address] [place] [address] [place] [address] Care Team Providers Care History Professor Name Role Phone Wayne HAYES, [place] Primary Care Provider UnaKing Maloney [phone] MEDICATIONS Medication SIG (Take, Route, Frequency, Duration) [...] Unknown Encounters Encounter Location Date Provider Diagnosis [facility] [address] [place] [phone] 02/05/2024 King De PLAN OF TREATMENT No Information
--- OUTSIDE RECORDS SUMMARY | 2024-04-19 09:44 | XMS_ITS ---
Author Organization [facility] Address [address] [place] [address] Care Team Providers Care Composite Technician Name Role Phone Wayne HAYES, [place] Primary Care Provider Unava ilable King De Unavailable [phone] REASON FOR VISIT screening colon PROBLEMS Problem Type ICD Code Onset Dates Problem Status W/U Status Risk SNOMED Code Notes Problem Diverticulosis of large intestine without perforation or abscess without bleeding (K57.30) Active confirmed Diverticul ar disease of colon (041097430) Encounters Encounter Location Date Provider Diagnosis [facility] [place] [address] [place] [phone] 07/17/2023 King De Encounter for scre ening [...]
--- OUTSIDE RECORDS SUMMARY | 2024-04-19 09:44 | XMS_ITS | Patient Health Record ---
Author Organization [facility] Address [address] [place] [address] Care Team Providers Care Hat Conditioner Name Role Phone Wayne HAYES, [place] Primary Care Provider King Turner [phone] ALLERGIES No Known Allergies RESULTS Component Value Reference Range Notes Pathology Reviewed date:08/05/2023 07:42:17 PM Interpretation: Performing Lab:[facility], [address] [place] [phone] Notes/Report: REASON FOR REFERRAL No Information MEDICATIONS [...] Problem Colon cancer screening (Z12.11) Active confirmed [id number] Problem Diverticulosis of large intestine without perforation or abscess without bleeding (K57.30) Active confirmed Diverticul ar disease of colon (876683352) Problem Preprocedural examination (Z01.818) Active confirmed [id number] Problem Abnormal UGI series (R93.3) Active confirmed Encounters Encounter Location Date Provider Diagnosis [facility] [place] Out[place] [address] [place] [phone] 06/28/2023 King De [facility] [place] Out[place] [address] [place], [place] [phone] 07/17/2023 King De Encounter for screen ing colonoscopy Z12.11 ; Diverticulosis of large intestine without perforation or abscess without bleeding K57.30 ; Other hemorrhoids K64.8 ; Other specified disease of esophagus K22.89 ; Hiatal hernia K44.9 and Abn findings-GI tract R93.3 [facility] [address] [place] [phone] 07/13/2023 King De Abnormal UGI series R93.3 [facility] [address] [place] [phone] 02/05/2024 King De ASSESSMENTS Encounter Date Diagnosis Assessment Notes Treatment Notes Treatment Clinical Notes 07/17/2023 Encounter for screening colonoscopy (ICD-10 - Z12.11) 07/17/2023 Diverticulosis of large intestine without perforation or abscess without bleeding (ICD-10 - K57.30) 07/13/2023 Abnormal UGI series (ICD-10 - R93.3) [...] Insured Coverage Start Date Coverage End Date [facility] [address] [place], [place] [id number] [phone] [id number] JOSHUA KAUFMAN Self - patient is the insured MEDICAL (GENERAL) HISTORY Medical History History ICD Code Denies CA,DM,CVA,renal disease Negative screening colonoscopy in 2012 Hypothyroidism Hyperlipdeimia Asthma Surgical History Surgery Date(Month/Year) Tubal ligation
== END 2024-04-19 09:37 | disposition home or self-care (01) ==
PROVIDERS: PCP Internal Medicine; Visit Provider Physician Assistant
DX: M17.0 Bilateral primary osteoarthritis of knee (principal)
CPT/HCPCS: 20610; 99213

== ENCOUNTER → 2024-04-19 09:14 | Outpatient (BNVA) | payer BC, SELFPAY | PROVIDERS: PCP Internal Medicine; Visit Provider Physician Assistant | DX: M17.0 Bilateral primary osteoarthritis of knee (principal) | CPT/HCPCS: 20610; J1010; J2003 ==

== ENCOUNTER 2024-07-04 09:12 | Outpatient (REF) | payer BC, SELFPAY ==
[2024-07-10 12:02] LABS: HPV Genotype 16 Negative (Negative); HPV Genotype 18 Negative (Negative); HPV High Risk Negative (Negative)
== END 2024-07-04 09:13 | disposition home or self-care (01) ==
LOC: HO.LNP 09:12
PROVIDERS: PCP Internal Medicine; Visit Provider Obstetrics & Gynecology
DX: Z01.419 Encounter for gynecological examination (general) (routine) without abnormal findings (principal)
CPT/HCPCS: 87626; 88175

== ENCOUNTER 2024-07-04 09:12 | Outpatient (AMB) | payer BC, SELFPAY ==
--- NOTE | 2024-07-04 09:26 | MHC.OFFVIS ---
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 No complaints. Last Pap/HPV was negative in 11/16 Last Mammogram was BI-RADS 3 in 04/23, the recommendation was to repeat in six-months Last Colonoscopy was in 07/20, the recommendation was to repeat in 10 years No previous screening DEXA scan [facility] Medical History Asthma Acquired hypothyroidism Osteoarthritis of both knees Vitamin D deficiency Multiple nevi Allergic rhinitis Airway hyperreactivity Pure hypercholesterolemia Dyspnea Surgical History History of esophagogastroduodenoscopy (EGD) History of colonoscopy History of tubal ligation Family History Father Stroke Diabetes Hypertension Mother Breast cancer Paternal Aunt Breast cancer Maternal Aunt Colon cancer Social History Housing: House Alcohol intake: current Alcohol intake frequency: holidays/special occasions only Patient Tobacco Use Status: Former Tobacco user e-Cigarette/Vaping Use: Never Used Second Hand Smoke Exposure: Yes service: No Current occupational status: retired Cognitive needs: No Hearing needs: No Vision needs: No Female Reproductive History Menstrual control method: permanent sterilization Date of last pap smear: 11/20/19 (negative ) Date of Mammogram: 04/02/24 (bi rad 3) Review of Systems Const All systems reviewed & are unremarkable except as noted in HPI and below Card Reports as per HPI Resp Reports as per HPI GI Reports as per HPI and Reports no additional complaints Reports as per HPI Physical Exam Vital Signs: Last Vital Signs BP 110/70 07/04/24 09:31 BMI result Body Mass Index 20.7 Const General: cooperative, healthy appearing and comfortable Chest Chest palpation & inspection: normal inspection of the chest and normal palpation of entire chest wall Breast/axilla inspection: normal inspection of the breasts and normal inspection of the axillae Breast/axilla palpation: normal palpation of the breasts, normal palpation of the axillae and no axillary lymphadenopathy Resp Effort & Inspection: normal respiratory effort Auscultation: clear to auscultation bilaterally Percussion: percussion normal Cardio Palpation: normal PMI Rate: regular rate Rhythm: regular rhythm Heart sounds: no murmurs and no rubs Peripheral pulses: Peripheral pulses 2+ throughout GI Inspection: Yes normal to inspection Palpation (GI): Soft to palpation, nontender, no guarding, not rigid and No hepatosplenomegaly present Percussion: Yes normal to percussion Auscultation: normal bowel sounds Rectal Exam - Female: deferred General: Yes bladder normal to palpation External Female Exam: No lesion Speculum Exam - Vagina: normal appearance of the vagina, normal palpation, normal vaginal discharge and not erythematous Speculum Exam - Cervix: normal appearance of the cervix and normal palpation Bimanual exam- vagina & uterus: normal bimanual exam, normal palpation, uterine size normal, bladder normal to palpation, consistency normal and normal palpation Bimanual Exam- Adnexa, other: normal adnexae, no masses and no tenderness Assessment & Plan Assessment & Plan (1) Well woman exam: Code(s): Z01.419 - Encounter for gynecological examination (general) (routine) without abnormal findings Category: Medical Plan: Co testing done. Counseled the patient about the recommended dietary allowance of 1200 mg of Calcium & 600 IU of vitamin D. Instructions given the patient to schedule next Mammogram in 10/21. DEXA scan ordered, instructions given the patient to schedule a 2 week DEXA scan follow-up appointment to discuss the results of the options of treatment. The patient was instructed to perform monthly self-breast exams and schedule annual exam in a year. All questions answered and the patient verbalized understanding. Orders: Orders XR DEXA axial skeleton Today Z78.0 - Asymptomatic menopausal state Coding Level of Care Code Est Pt Prev Care 40-64y(99777) Diagnoses Well woman exam Z01.419
[2024-07-04 09:31] VITALS: BP 110/70; BMI 20.7
--- OUTSIDE RECORDS SUMMARY | 2024-07-04 09:46 | XMS_ITS | Patient Health Record ---
Author Organization [facility] Address [address] [place] [address] Care Team Providers Care Tailor Apprentice Name Role Phone Wayne HAYES, [place] Primary Care Provider Unava joseable King De Unavailable [phone] Allergies No Known Allergies Results Component Value Reference Range Notes Pathology Reviewed date:08/05/2023 07:42:17 PM Interpretation: Performing Lab:[facility], [address] [place] [phone] Notes/Report: Name: Emily Kaufman Age/Sex: 63/F : 1960 Unit#: [id number] Attend Dr: King De Re07/17/23 Status : [facility] Location: [facility] Disch: SPEC : [id number] RECD : 07/17/23 STATUS: LUKE HENRIQUEZ NUM: [id number] MARY: 07/17/23 [facility] DR: King De ENTERED: 07/17/23- 27 SP TYPE: Surgical OTHR DR: Kirk Black MD ORDERED: HE Stain/6, Gross Micro L4/2, Special st. 2, AB/PAS Diagnosis A. EG junction, 39 cm, biopsy: - Cardiofundic-type mucosa with mild chronic inactive inflammation; no intestinal metaplasia seen. - Squamous mucosa wi thin normal limits. B. Esophagus, 20-25 cm, biopsy: Squamous epithelium within normal limits; no inflammation seen; n egative for eosinophilic esophagitis. Clinical History Pre-Op Dx: Encounter for screening for malignant neoplasm of colon Post-Op Dx: Upper: s mall hiatal hernia; Lower: diverticulosis and hemorrhoids Microscopic Description A, B. Microscopic se ctions examined. No metaplastic changes are seen, supported by AB/PAS stains (A). Material Received A. EG junction at 39 cm B. Esophagus at 20 t o 25 cm, r/o EOE (eosinophilic esophagus) Gross Description Received in two parts. Part A: Received in formalin labeled ?EG junction at 39 cm? are 2 blunt-pink irregular tissue fragments measuring 0.25 and 0.35 cm, submitted in toto in a cassette labeled A. Part B: Received in formalin labeled ?esophagus at 20-25 cm rule out EOE? are 3 coffey-white rectangular tissue f ragments ranging from 0.3-0.4 cm, submitted in toto in a cassette labeled B. CEDS Special studies orde red and performed: AB/PAS stains on A Copies To: Kirk Black MD [address] [place] [phone] CONTINUED ON NEXT PAGE Name: Emily Kaufman Age/Sex: 63/F : 1960 Unit#: [id number] Attend Dr: King De Re07/17/23 Status : [facility] Location: [facility] Disch: SPEC : [id number] RECD : 07/17/23 STATUS: LUKE HENRIQUEZ NUM: [id number] MARY: 07/17/23 [facility] DR: King De ENTERED: 07/17/23 SP TYPE: Surgical OTHR DR: Kirk Black MD ORDERED: GLENROY Stain/6, Gross Micro L4/2, Special st. 2, AB/PAS Copies To: (Continued) King De [address] [place] [address] [id number] [place] [id number] Signed (si gnature on file) Nas Jefferson MD 07/19/23 0928 END OF REPORT Reason For Referral No Information Medications Medication SIG (Take, Route, Frequency, Duration) Notes Start Date End Date Status Levothyroxine Sodium 25 MCG Oral for 90 Unknown Montelukast Sodium 10 MG TAKE 1 TABLET B Y MOUTH EVERY DAY Oral for 90 Unknown Multivitamin - 1 tablet Orally Once a day for 30 day(s) Unknown Rosuvastatin Calcium 5 MG TAKE 1 TABLET BY MOUTH EVERY DAY Oral for 30 Unknown Problems Problem Type SNOMED Code ICD Code Onset Dates Problem Status W/U Status Risk Notes Problem [id number] Colon cancer screening (Z12.11) Active confirmed Problem Diverticular disease of colon (338089308) Diverticulosis of large intestine without perforation or abscess without bleeding (K57.30) Active confirmed Problem [id number] Preprocedural examination (Z01.818) Active confirmed Problem Abnormal UGI series (R93.3) Active confirmed Encounters Encounter Location Date Provider Diagnosis [facility] [place] [address] [place] [phone] 07/17/2023 Knig De Encounter for screen ing colonoscopy Z12.11 ; Diverticulosis of large intestine without perforation or abscess without bleeding K57.30 ; Other hemorrhoids K64.8 ; Other specified disease of esophagus K22.89 ; Hiatal hernia K44.9 and Abn findings-GI tract R93.3 [facility] [address] [place] [phone] 07/13/2023 King De Abnormal UGI series R93.3 [facility] [address] [place] [phone] 02/05/2024 King De Assessments Encounter Date Diagnosis (ICD Code) Assessment [...] tract (ICD-10 - R93.3) Plan Of Treatment Future Test Test Name Order Date COLONOSCOPY 02/15/2012 COLONOSCOPY 03/28/2023 UPPER GI ENDOSCOPY 07/13/2023 Insurance Providers Payer Name Payer Address Payer Phone Subscriber Number Group Number Insured Name Patient Relationship to Insured Coverage Start Date Coverage End Date [facility] [address] [place], [place] [id number] JOSHUA KAUFMAN Self - patient is the insured Medical (General) History Medical History History ICD Code Denies CO,DM,CVA,renal disease Negative screening colonoscopy in 2012 Hypothyroidism Hyperlipdeimia Asthma Surgical History Surgery Date(Month/Year) Tubal ligation
--- OUTSIDE RECORDS SUMMARY | 2024-07-04 09:46 | XMS_ITS ---
Author Organization [facility] Address [address] [place] [address] Care Team Providers Care Choir Accompanist Name Role Phone Wayne HAYES, [place] Primary Care Provider Unava ilable King De Unavailable [phone] REASON FOR VISIT screening colon Problems Problem Type SNOMED Code ICD Code Onset Dates Problem Status W/U Status Risk Notes Problem Diverticulosis o f large intestine without perforation or abscess without bleeding (K57.30) Active confirmed Encounters Encounter Location Date Provider Diagnosis [facility] [place] [address] [place] [phone] 07/17/2023 King De Encounter for scre ening [...] No Information Progress Notes * ANNE KAUFMANINEDOB:1960 (63 yo F)Acc No.[id number]:07/17/2023 COLON WITH MAC Patient:?JOSHUA KAUFMAN Provider:?King De MD :1960???Age:63 Y???Sex:Female D ate:07/17/2023 Address:[address] [place], [place] [phone] Pcp:Kirk Black MD Subjective: * Chief Complaints: * ???1. Screening colon. * Medical History:? Objective: * Vitals:? Assessment: * Assessment: 1.?Encounter for screening c olonoscopy - Z12.11 (Primary)???2.?Diverticulosis of large intestine without perforation or abscess without bleeding - K57.30???3.?Other hemorrhoids - K64.8???4.?Other specified disease of esophagus - K22.89???5.?Hiatal hernia - K44.9???6.?Abn findings-GI tract - R93.3??? Plan: * Treatment: * Procedure Codes:?04940 DIAGN OSTIC COLONOSCOPY, Modifiers: 33 , 84977 UPPER GI ENDOSCOPY, BIOPSY * * The named appointment provid er may or may not be the originator of this progress note, and it is not deemed complete until electronically signed by the appointment provider. Sign off status: Pending * Provider:?King De MD Date:? 024 Generated for Rona blackwell/Sonny/eTransmitting on:?07/04/2024 09:46 AM EDT
--- OUTSIDE RECORDS SUMMARY | 2024-07-04 09:46 | XMS_ITS ---
Author Organization [facility] Address [address] [place] [phone] Care Team Providers Care Medicine Assistant Name Role Phone Wayne HAYES, [place] Primary Care Provider Unava ilable King De Unavailable [phone] REASON FOR VISIT Add Upper endo to her colonoscopy Problems Problem Type SNOMED Code ICD Code Onset Dates Problem Status W/U Status Risk Notes Problem Abnormal UGI series (R93.3) Active confirmed Encounters Encounter Location Date Provider Diagnosis [facility] [address] [place] [phone] 07/13/2023 King De Abnormal UGI series R93.3 Assessments Encounter Date Diagnosis (ICD Code) Assessment Notes Treatment Notes Treatment Clinical Notes Section Notes 07/13/2023 Abnormal UGI series (ICD-10 - R93.3) Plan Of Treatment Future Test Test Name Order Date UPPER GI ENDOSCOPY 07/13/2023 Progress Notes * SHAE MYRNASONIOB:1960 (62 yo F)Acc No.[id number]:07/13/2023 Patient:?ANNE KAUFMANINE :1960???Age:62 Y???Sex:Female Address:[facility], [address] Subjective: * Chief Complaints: * ???Add Upper endo to her col onoscopy * Medical History:? * Surgical History:? * Hospitalization/Major Diagno stic Procedure:? * Medications:? Objective: Assessment: * Assessment: 1.?Abnormal UGI series - R93 .3 (Primary)? Plan: * Treatment: * Procedure Codes:? * true * Date:? Generated for Rona blackwell/Sonny/Ene on:?07/04/2024 09:46 AM EDT
--- OUTSIDE RECORDS SUMMARY | 2024-07-04 09:46 | XMS_ITS ---
Author Organization [facility] Address [address] [place] [address] Care Team Providers Care Development Professional Name Role Phone Wayne HAYES, [place] Primary Care Provider King Turner [phone] Medications Medication SIG (Take, Route, Frequency, Duration) [...] Unknown Encounters Encounter Location Date Provider Diagnosis [facility] [address] [address] 02/05/2024 King De Plan Of Treatment No Information Progress Notes * BOSTON KAUFMANOB:1960 (63 yo F)Acc No.[id number]:02/05/2024 Patient:?SHAEMYRNAJOSHUA :1960???Age:63 Y???Sex:Female Address:[facility] [place], [address] Subjective: * Chief Complaints: * ??? * Medical History:? * Surgical History:? * Hospitalization/Major Diagno stic Procedure:? * Medications:?UnknownMultivit barahona - Tablet 1 tablet Orally Once a dayRosuvastatin Calcium 5 MG Tablet TAKE 1 TABLET BY MOUTH EVERY DAY Oral Levothyroxine Sodium 25 MCG Tablet Oral Montelukast Sodium 10 MG Tablet TAKE 1 TABLET BY MOUTH EVERY DAY Oral Medication List reviewed and reconciled with the patientUnknown Multivitamin - Tablet 1 tablet Orally Once a dayUnknown Rosuvastatin Calcium 5 MG Tablet TAKE 1 TABLET BY MOUTH EVERY DAY Oral Unknown Levothyroxine Sodium 25 MCG Tablet Oral Unknown Montelukast Sodium 10 MG Tablet TAKE 1 TABLET BY MOUTH EVERY DAY Oral Medication List reviewed and reconciled with the patient Objective: Assessment: Plan: * Treatment: * Procedure Codes:? * true * Date:? Generated for Rona blackwell/Sonny/eTdashasmitting on:?07/04/2024 09:46 AM EDT
== END 2024-07-04 09:50 | disposition home or self-care (01) ==
LOC: HO.HWS 09:12
PROVIDERS: PCP Internal Medicine; Visit Provider Obstetrics & Gynecology
DX: Z01.419 Encounter for gynecological examination (general) (routine) without abnormal findings (principal)
CPT/HCPCS: 99396; 99459

== ENCOUNTER 2024-07-18 14:33 | Outpatient (REF) | payer BC, SELFPAY ==
--- NOTE | ~2024-07-18 | MM_ITS ---
EXAMINATION: DXA BONE DENSITY AXIAL HISTORY: Z78.0 - Asymptomatic menopausal state TECHNIQUE: [place] Dual energy absorptiometry (DEXA) of the lumbar spine, total left hip, and femoral neck was performed. COMPARISON: Comparison is made with the prior examination dated 02/17/2015. FINDINGS: The bone mineral density of the lumbar spine is 0.917, corresponding to a T-score of -2.1, and a Z-score of -0.4. This is indicative of osteopenia. This represents a BMD change of -13.2% compared to the prior exam. This is statistically significant. The bone mineral density of the left total hip is 0.881, corresponding to a T-score of -1.0, and a Z-score of 0.3. This is indicative of normal bone mineral density. This represents a BMD change of -1.5% compared to the prior exam. This is not statistically significant. The bone mineral density of the left femoral neck is 1.040, corresponding to a T-score of 0.0, and a Z-score of 1.6. This is indicative of normal bone mineral density. This represents a BMD change of 5.4% compared to the prior exam. FRACTURE RISK: The FRAX index suggests a ten year probability of major osteoporotic fracture of 5.9%, and of hip fracture 0.2%. MM/XR DEXA axial skeleton IMPRESSION: Based on bone mineral density, and according to World Health Organization (WHO) criteria, the diagnosis is consistent with osteopenia. All bone density values are in grams per centimeter squared (g/cm2). Statistically, 68% of repeat scans fall within 1 SD (+/- 0.010 g/cm2 for AP spine L1-L4) and 1 SD (+/- 0.012 g/cm2 for femur total) FRAX is a trademark of the [employer]'s [place] for Metabolic Bone Disease, a World Health Organization (WHO) Collaborating Center. Electronically signed by: King Hickman MD 07/18/2024 03:09 PM EDT
--- OUTSIDE RECORDS SUMMARY | 2024-07-18 14:36 | XMS_ITS | Patient Health Record ---
Author Organization [facility] Address [address] [place] [address] Care Team Providers Care Consumer Lender Name Role Phone Wayne HAYES, [place] Primary Care Provider King Turner Unavailable [phone] Allergies No Known Allergies Reason For Referral No Information Medications Medication [...] Problem Status W/U Status Risk Notes Problem 979236392 Colon cancer screening (Z12.11) Active confirmed Problem Diverticular disease of colon (591406384) Diverticulosis of large intestine without perforation or abscess without bleeding (K57.30) Active confirmed Problem 545704400114284 Preprocedural examination (Z01.818) Active confirmed Problem Abnormal UGI series (R93.3) Active confirmed Encounters Encounter Location Date Provider Diagnosis [facility] [address] [place] [phone] 02/05/2024 Kign De Plan Of Treatment Future Test Test Name Order Date COLONOSCOPY 02/15/2012 COLONOSCOPY 03/28/2023 UPPER GI ENDOSCOPY 07/13/2023 Insurance Providers Payer Name Payer Address Payer Phone Subscriber Number Group Number Insured Name Patient Relationship to Insured Coverage Start Date Coverage End Date [facility] [address] [place], [place] [id number] JOSHUA KAUFMAN Self - patient is the insured Medical (General) History Medical History History ICD Code Denies [place],DM,CVA,renal disease Negative screening colonoscopy in 2012 Hypothyroidism Hyperlipdeimia Asthma Surgical History Surgery Date(Month/Year) Tubal ligation
== END 2024-07-18 14:34 | disposition home or self-care (01) ==
LOC: HO.MAMMO 14:33
PROVIDERS: Visit Provider Obstetrics & Gynecology
DX: Z13.820 Encounter for screening for osteoporosis (principal); Z78.0 Asymptomatic menopausal state
CPT/HCPCS: 77080

== ENCOUNTER → 2024-07-18 15:00 | Outpatient (BNV) | payer BC, SELFPAY | PROVIDERS: Visit Provider Radiology Diagnostic Radiology | DX: E28.39 Other primary ovarian failure (principal) | CPT/HCPCS: 77080 ==

== ENCOUNTER 2024-07-19 08:17 | Outpatient (REF) | payer MEDICARE, SELFPAY ==
--- OUTSIDE RECORDS SUMMARY | 2024-07-19 08:26 | XMS_ITS | Patient Health Record ---
Author Organization [facility] Address [address] [place] [address] Care Team Providers Care Supervisor [place] Name Role Phone Wayne HAYES, [place] Primary Care Provider King Turner Unavailable [phone] Allergies No Known Allergies Reason For Referral [...] Problem Status W/U Status Risk Notes Problem [id number] Colon cancer screening (Z12.11) Active confirmed Problem Diverticular disease of colon (785067579) Diverticulosis of large intestine without perforation or abscess without bleeding (K57.30) Active confirmed Problem 453124218653238 Preprocedural examination (Z01.818) Active confirmed Problem Abnormal UGI series (R93.3) Active confirmed Encounters Encounter Location Date Provider Diagnosis [facility] [address] [place] [phone] 02/05/2024 King De Plan Of Treatment Future Test Test Name Order Date COLONOSCOPY 02/15/2012 COLONOSCOPY 03/28/2023 UPPER GI ENDOSCOPY 07/13/2023 Insurance Providers Payer Name Payer Address Payer Phone Subscriber Number Group Number Insured Name Patient Relationship to Insured Coverage Start Date Coverage End Date [facility] [address] [place], [place] [id number] JOSHUA KAUFMAN Self - patient is the insured Medical (General) History Medical History History ICD Code Denies [place],DM,CVA,renal disease Negative screening colonoscopy in 2012 Hypothyroidism Hyperlipdeimia Asthma Surgical History Surgery Date(Month/Year) Tubal ligation
[2024-07-19 08:36] LABS: MANUAL DIFF FLAG NO
[2024-07-19 08:48] LABS: Basophils Absolute Auto 0.1 X10*3/uL (0.0-0.2); Eosinophils Absolute Auto 0.1 X10*3/uL (0.0-0.4); Eosinophils Percent Auto 1.2 % (0-4); Hematocrit 44.8 % (37.0-47.0); Hemoglobin 14.9 g/dl (12.0-16.0); Imm Gran Abs Auto 0.01 X10*3/uL (0.00-0.03); Imm Gran Pct Auto 0.2 % (0.0-0.4); Lymphocytes Absolute Auto 2.4 X10*3/uL (1.2-4.9); Lymphocytes Percent Auto 41.4 % (20-40); Mean Corpuscular HGB Conc 33.3 g/dl (31.0-35.0); Mean Corpuscular Hemoglobin 28.8 pg (27.0-33.0); Mean Corpuscular Volume 86.7 fL (80.0-98.0); Mean Platelet Volume 10.8 fL (9.4-12.3); Monocytes Absolute Auto 0.5 X10*3/uL (0.1-1.2); Monocytes Percent Auto 7.7 % (2-11); Neutrophils Absolute Auto 2.8 x10*3/uL (2.0-8.3); Neutrophils Percent Auto 48.5 % (45-73); Platelet Count 201 X10*3/uL (160-400); Red Blood Count 5.17 X10*6/uL (4.20-5.50); Red Cell Distribution Width 13.9 % (11.0-16.0); White Blood Count 5.8 X10*3/uL (4.8-10.8)
[2024-07-19 09:43] LABS: Alanine Aminotransferase 20 U/L (0-31); Albumin Level 4.6 g/dL (3.5-5.0); Alkaline Phosphatase 67 U/L (39-117); Anion Gap 12 (12-20); Aspartate Amino Transferase 18 U/L (5-31); Bilirubin Total 0.6 mg/dL (0.0-1.0); Blood Urea Nitrogen 17 mg/dL (9-16); Calcium 9.6 mg/dL (8.4-10.2); Carbon Dioxide 27 mmol/L (22-29); Chloride 108 mmol/L (96-108); Cholesterol 233 mg/dL (<200); Estimated Glomerular Filt Rate > 60; Glucose Fasting 92 mg/dL (60-99); HDL Cholesterol 75 mg/dL (>40); LDL Cholesterol Calculated 142 mg/dL (<100); Potassium 4.2 mmol/L (3.3-5.1); Sodium 143 mmol/L (135-145); Total Protein 6.9 g/dL (6.5-8.0); Triglycerides 82 mg/dL (<150)
[2024-07-19 10:06] LABS: Free T4 (Free Thyroxine) 1.05 ng/dL (0.71-1.85); Thyroid Stimulating Hormone 3.77 uIU/mL (0.32-4.0); Vitamin D 25-OH Total 40.7 ng/mL (>30)
[2024-07-19 10:21] LABS: Appearance Urine Clear; Color Urine Yellow; Glucose Urine UA Negative (Negative); Leukocyte Esterase Urine Small (1+) (Negative); Nitrite Urine Negative (Negative); UMIC TRIGGER UACC YES; Urine Blood Negative (Negative); Urine Ketones Negative (Negative); Urine Protein Negative (Neg-Trace)
[2024-07-19 10:40] LABS: Bacteria Urine None Seen (None Seen); Hyaline Casts Urine 0-2 /LPF (0-2); RBC Urine 0-2 /HPF (0-2); Squamous Epithelial Cell Urine 0-2 /HPF (0-2); UACC Culture Trigger YES; WBC Urine 0-5 /HPF (0-5)
== END 2024-07-19 08:18 | disposition home or self-care (01) ==
LOC: HO.LAB 08:17
PROVIDERS: PCP Internal Medicine; Visit Provider Internal Medicine
DX: E78.00 Pure hypercholesterolemia, unspecified (principal); E03.9 Hypothyroidism, unspecified; E55.9 Vitamin D deficiency, unspecified; D64.9 Anemia, unspecified; R30.0 Dysuria
CPT/HCPCS: 36415; 80053; 80061; 81001; 81003; 82306; 84439; 84443; 85025; 87086

== ENCOUNTER 2024-07-25 13:09 | Outpatient (AMB) | payer BC, SELFPAY ==
--- OUTSIDE RECORDS SUMMARY | 2024-07-25 13:11 | XMS_ITS | Patient Health Record ---
Author Organization [facility] Address [address] [place] [address] Care Team Providers Care Manager Labor Relations Name Role Phone Wayne HAYES, [place] Primary Care Provider King Turner Unavailable [phone] Allergies No Known Allergies Reason For Referral [...] Problem Status W/U Status Risk Notes Problem [id number] Colon cancer screening (Z12.11) Active confirmed Problem Diverticular disease of colon (428247083) Diverticulosis of large intestine without perforation or abscess without bleeding (K57.30) Active confirmed Problem 460776162035921 Preprocedural examination (Z01.818) Active confirmed Problem Abnormal UGI series (R93.3) Active confirmed Encounters Encounter Location Date Provider Diagnosis [facility] [address] [place] [address] 02/05/2024 King De Plan Of Treatment Future Test Test Name Order Date COLONOSCOPY 02/15/2012 COLONOSCOPY 03/28/2023 UPPER GI ENDOSCOPY 07/13/2023 Insurance Providers Payer Name Payer Address Payer Phone Subscriber Number Group Number Insured Name Patient Relationship to Insured Coverage Start Date Coverage End Date [facility] [address] [place], [place] [id number] JOSHUA KAUFMAN Self - patient is the insured Medical (General) History Medical History History ICD Code Denies [place],DM,CVA,renal disease Negative screening colonoscopy in 2012 Hypothyroidism Hyperlipdeimia Asthma Surgical History Surgery Date(Month/Year) Tubal ligation
--- NOTE | 2024-07-25 13:14 | MHC.OFFVIS ---
Intake Visit Reasons: INJ B/L knee inj (80), last inj 04/19/24 Intake Note: Araceli is a 64 year old female who presents today for a follow up of her bilateral knee OA, last injection 04/19/24. Patient reports her last injections gave her relief and she would like to repeat. Allergies doxycycline Allergy (Severe, Verified 07/25/24 13:15) Hives atorvastatin Adverse Reaction (Intermediate, Verified 07/25/24 13:15) persistent aching in legs bandages Allergy (Severe, Uncoded 07/04/24 09:35) Rash HPI HPI INJ B/L knee inj (80), last inj 04/19/24: Details: Ms. Moulton this is a 64-year-old female who presents to the office today accompanied by her daughter for evaluation of bilateral knee pain. Patient had bilateral knee injections last performed on 04/19/2024. The patient does get good relief with these. She would like to repeat injections today. [facility] Medical History Asthma Acquired hypothyroidism Osteoarthritis of both knees Vitamin D deficiency Multiple nevi Allergic rhinitis Airway hyperreactivity Pure hypercholesterolemia Dyspnea Surgical History History of esophagogastroduodenoscopy (EGD) History of colonoscopy History of tubal ligation Family History Father Stroke Diabetes Hypertension Mother Breast cancer Paternal Aunt Breast cancer Maternal Aunt Colon cancer Social History Housing: House Alcohol intake: current Alcohol intake frequency: holidays/special occasions only Patient Tobacco Use Status: Former Tobacco user e-Cigarette/Vaping Use: Never Used Second Hand Smoke Exposure: Yes service: No Current occupational status: retired Cognitive needs: No Hearing needs: No Vision needs: No Review of Systems Const All systems reviewed & are unremarkable except as noted in HPI and below Physical Exam Const General: cooperative, healthy appearing and no acute distress Resp Effort & Inspection: normal respiratory effort and able to speak in complete sentences Extrem Other: Bilateral knee: Normal to inspection. No ecchymosis or erythema.Mild to moderate effusion. No tenderness to palpation to the medial or lateral joint lines. Full knee extension and flexion. Mild crepitus felt wit ROM. Negative Zeeshan's. Negative anterior draw. NVI. Office Procedures AMB Joint Injection/Aspiration Joint Injection/Aspiration Primary Site: right knee Secondary Site: left knee Prep: site was prepped using aseptic technique, ethochloride spray was applied and injection warnings given Injected: 80 mg of, DepoMedrol and with 8 mL of (2% plain lidocaine) Approach Used: anterolateral Procedure: The patient tolerated the procedure well, but had some pain with the injection and there was some relief with the local anesthesia Coding - Bilateral Large Joint Procedure code (CPT) selection complete Assessment & Plan Assessment & Plan (1) Osteoarthritis of left knee: Code(s): M17.12 - Unilateral primary osteoarthritis, left knee Category: Medical Qualifiers: Osteoarthritis type: unspecified Qualified Code(s): M17.12 - Unilateral primary osteoarthritis, left knee (2) Osteoarthritis of right knee: Code(s): M17.11 - Unilateral primary osteoarthritis, right knee Category: Medical Qualifiers: Osteoarthritis type: unspecified Qualified Code(s): M17.11 - Unilateral primary osteoarthritis, right knee Plan The patient was offered a cortisone injection in bilateral knees with 80 mg of DepoMedrol. The patient was explained the risks, benefits, and alternatives to receiving this injection. After receiving consent for the injection, the patient had the procedure done while in the office today. The patient tolerated the procedure well with no complications. Follow-up will be PRN, or sooner if needed Coding Level of Care Code Est Pt Level 3 (40819) Diagnoses Osteoarthritis of left knee, unspecified osteoarthritis type M17.12 Osteoarthritis type: unspecified Osteoarthritis of right knee, unspecified osteoarthritis type M17.11 Osteoarthritis type: unspecified CPT Codes Coding - 55933 - Bilateral Large Joint: 90893 - Bilateral Large Joint ([id number])
== END 2024-07-25 13:38 | disposition home or self-care (01) ==
LOC: HO.HOS 13:10
PROVIDERS: PCP Internal Medicine; Visit Provider Physician Assistant
DX: M17.0 Bilateral primary osteoarthritis of knee (principal)
CPT/HCPCS: 20610; 99213

== ENCOUNTER → 2024-07-25 13:09 | Outpatient (BNVA) | payer BC, SELFPAY | PROVIDERS: PCP Internal Medicine; Visit Provider Physician Assistant | DX: M17.0 Bilateral primary osteoarthritis of knee (principal) | CPT/HCPCS: 20610; J1010; J2003 ==

== ENCOUNTER 2024-07-26 08:58 | Outpatient (AMB) | payer BC, SELFPAY ==
[2024-07-26 09:01] VITALS: BP 118/72; PULSE 59; O2SAT 99; BMI 20.8
--- NOTE | 2024-07-26 09:01 | MHC.PC.OV ---
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 Accompanied by: Self / Same As Patient Allergies doxycycline Allergy (Severe, Verified 07/26/24 09:15) Hives atorvastatin Adverse Reaction (Intermediate, Verified 07/26/24 09:15) persistent aching in legs bandages Allergy (Severe, Uncoded 07/26/24 09:15) Rash Medication List - Last Reconciled 07/26/24 by Kirk Black MD albuterol sulfate 90 mcg/actuation (Ventolin HFA) 2 puffs inhalation Q6H PRN 30 days fluticasone propionate 50 mcg/actuation 1 spray intranasal DAILY 30 days levothyroxine 25 mcg PO DAILY 90 days montelukast 10 mg PO DAILY 90 days rosuvastatin 5 mg PO DAILY tizanidine 2 mg PO TID PRN Tobacco use date assessed: 07/26/24 Fall risk assessment: No Falls in past year Last assessed Fall Risk: 07/26/24 Dental Screening Dental Screen Date: 07/26/24 Did you have a dental visit in the last 12 months?: Yes Did you have a dental problem in the last 6 months where you did not have access to dental care?: No Was dental information given to patient?: Patient has dentist HPI Annual Exam HPI Details Patient comes in today for her annual physical examination States that she feels okay She denies any headaches or dizziness Denies any chest pains, no SOB No nausea/vomiting, no abdominal pain No change in bowel habits noted Denies any acute urinary symptoms She had her follow up labs done last week - to discuss her results She also had her BMD done a week ago and would like to know how her results are She is up-to-date with all of her cancer screenings - she is not due for repeat colonoscopy until 2033 She just had her yearly gynecology exam and pap smear done a few weeks ago and had her annual mammogram done in March 2024 [facility] Medical History (Updated 07/26/24 @ 10:05 by Kirk Black MD) Osteopenia Asthma Acquired hypothyroidism Osteoarthritis of both knees Vitamin D deficiency Multiple nevi Allergic rhinitis Airway hyperreactivity Pure hypercholesterolemia Dyspnea Surgical History History of esophagogastroduodenoscopy (EGD) History of colonoscopy History of tubal ligation Family History Father Stroke Diabetes Hypertension Mother Breast cancer Paternal Aunt Breast cancer Maternal Aunt Colon cancer Social History Housing: House Alcohol intake: current Alcohol intake frequency: holidays/special occasions only Patient Tobacco Use Status: Former Tobacco user e-Cigarette/Vaping Use: Never Used Second Hand Smoke Exposure: Yes service: No Current occupational status: retired Cognitive needs: No Hearing needs: No Vision needs: No Questionnaire PHQ-9 Over the last 2 weeks, how often have you been bothered by any of the following problems? 1. Little interest or pleasure in doing things: not at all 2. Feeling down, depressed, or hopeless: not at all 3. Trouble falling or staying asleep, or sleeping too much: not at all 4. Feeling tired or having little energy: not at all 5. Poor appetite or overeating: not at all 6. Feeling bad about yourself - or that you are a failure or have let yourself or your family down: not at all 7. Trouble concentrating on things, such as reading the newspaper or watching television: not at all 8. Moving or speaking so slowly that other people could have noticed. Or the opposite - being so fidgety or restless that you have been moving around a lot more than usual: not at all 9. Thoughts that you would be better off or of hurting yourself in some way: not at all Total score: 0 Depression Screening Interpretation: Negative Depression Screening Done: Yes 67784 - PHQ-9 Billing: Yes Source: Developed by Drs. King Goldman, Anastacia Wilknison, Devan Titus and colleagues, with an educational oscar from [employer]. Thrive Questionnaire Date Thrive assessed: 07/26/24 I am a: Patient What is your living situation today?: I have a steady place to live Within the past 12 months, did the food you bought not last and you didn't have the money to get more?: Never true Within the past 12 months, did you worry whether your food would run out before you got money to buy more?: Never true Do you have trouble paying for medicines?: No Do you have trouble getting transportation to medical appointments?: No Do you have trouble paying your heating and electricity bill?: No Do you have trouble taking care of your child, family member or friend?: No Do you have trouble with day-to-day activities such as bathing, preparing meals, shopping, managing finances, etc.?: No Are you currently unemployed and looking for a job?: No Are you interested in more education?: No Please select the resources that you would like help with: None Currently or been in a relationship where the following occur: No concerns reported THRIVE Score: 0 AUDIT C Alcohol Use Questionnaire (AUDIT-C) 1. How often do you have a drink containing alcohol?: 2-4 times a month 2. How many drinks containing alcohol do you have on a typical day when you are drinking?: 1 or 2 3. How often do you have six or more drinks on one occasion?: Never Total Score: 2 Score Reviewed/Action Taken: Yes JESUS-7 AMB Questionnaire JESUS-7 Date JESUS - 7 assessed: 07/26/24 Feeling nervous, anxious, or on edge: 0 = Not at all Not being able to stop or control worryin = Not at all Worrying too much about different things: 0 = Not at all Trouble relaxin = Not at all Being so restless that it is hard to sit still: 0 = Not at all Becoming easily annoyed or irritable: 0 = Not at all Feeling afraid as if something awful might happen: 0 = Not at all Total JESUS-7 score (0-4 normal; 5-9 mild; 10-14 moderate; 15-21 severe): 0 Source: Developed by Drs. King Goldman, Anastacia Wilkinson, Devan Titus and colleagues, with an educational oscar from [employer]. Review of Systems Const Denies chills, Denies fatigue, Denies fever(s), Denies headache(s) and Denies malaise Eyes Denies blurry vision, Denies change in vision, Denies irritation and Denies itchy eyes ENT Denies dysphagia, Denies dizziness, Denies otalgia, Denies headache(s), Denies nasal congestion, Denies neck pain, Denies odynophagia, Denies sinus pain and Denies sore throat Card Denies chest pain, Denies rapid heart rate, Denies irregular heart rhythm, Denies palpitations and Denies dyspnea Resp Denies chest congestion, Denies cough, Denies dyspnea and Denies wheezing GI Denies abdominal pain, Denies bloating, Denies constipation, Denies dysphagia, Denies heartburn, Denies diarrhea, Denies nausea, Denies odynophagia and Denies vomiting Denies hematuria, Denies urinary frequency, Denies dysuria, Denies urinary incontinence and Denies urinary urgency Musc Denies back pain, Denies arthralgias, Denies joint swelling, Denies muscle weakness and Denies neck pain Skin/Breast Denies breast pain, Denies breast mass, Denies change in pigmentation, Denies lesions, Denies rash and Denies unusual bruising Neuro Denies dizziness, Denies headache(s) and Denies paresthesias Psych Denies anxiety and Denies depression Endo Denies fatigue and Denies palpitations Eliseo/Lymph Denies easy bruising Aller/Immun Denies itchy eyes and Denies wheezing Physical exam (Primary Care) Vital Signs: Last Vital Signs Pulse 59 07/26/24 09:01 BP 118/72 07/26/24 09:01 Pulse Ox 99 07/26/24 09:01 Oxygen Delivery Method Room Air 07/26/24 09:01 BMI result Body Mass Index 20.8 Tobacco/Smoking Status: Tobacco use Status Tobacco use date assessed 07/26/24 07/26/24 09:06 Patient Tobacco Use Status Former Tobacco user 07/26/24 09:06 e-Cigarette/Vaping Use Never Used 07/26/24 09:06 PHQ-9: PHQ-9 Score PHQ-9: Total score 0 07/26/24 09:06 Depression Screening Interpretation: Negative Thrive Assessment: Date of Thrive Assessment Date Thrive assessed 07/26/24 07/26/24 09:06 Currently or been in a relationship where the following occur: No concerns reported Const General: no acute distress, alert and awake Orientation/consciousness: patient oriented x3 HENMT Head: Yes normocephalic and Yes atraumatic Ears: external ears normal, TM's normal bilaterally and EAC's normal General nose exam: No nasal discharge present Face and sinus: Yes normal facial exam and Yes sinuses nontender Teeth and gingiva: dentition normal Throat: Yes posterior oropharynx normal and Yes tonsils normal (no TP congestion) Eyes Eyelids: Yes eyelids normal Conjunctivae: conjunctivae normal Pupils: Equal, round and reactive pupils present EOM: EOMs intact bilaterally Neck Neck: Yes supple and No lymphadenopathy Thyroid: Thyroid normal Resp Auscultation: clear to auscultation bilaterally, no rales and no wheezes Cardio Rate: regular rate Rhythm: regular rhythm Heart sounds: no murmurs GI Palpation (GI): Soft to palpation, nontender and No hepatosplenomegaly present Auscultation: normal bowel sounds General: Yes no CVA tenderness Back/Spine/Pelvis Back: no CVA tenderness Thoracic/Lumbar Spine: thoracic and lumbar spine normal to inspection Skin Lesions: no lesions Rashes: no rashes Neuro General: patient oriented x3, moves all extremities, no focal motor deficits and CN's II-XI intact bilaterally Cranial nerves: Yes Equal, round and reactive pupils present Cognition (Neuro): normal cognition Gait exam (Neuro): Normal gait present Extrem General: Yes no clubbing, cyanosis or edema Results Reviewed Results Reviewed: Laboratory Tests 07/19/24 07/19/24 08:31 08:34 WBC 5.8 Hgb 14.9 Hct 44.8 Plt Count 201 Sodium 143 Potassium 4.2 Creatinine 0.79 Estimated GFR > 60 Fasting Glucose 92 Calcium 9.6 AST 18 ALT 20 Triglycerides 82 Cholesterol 233 H LDL Cholesterol, Calc 142 H HDL Cholesterol 75 25-OH Vitamin D Total 40.7 TSH 3.77 Free T4 1.05 Ur Specific Rowley 1.020 Urine Protein Negative Urine Glucose (UA) Negative Urine Blood Negative Urine Nitrite Negative Ur Leukocyte Esterase Small (1+) H Coding Level of Care Code Est Pt Prev Care >65y(69223) Diagnoses Annual physical exam Z00.00 Pure hypercholesterolemia E78.00 Mild intermittent asthma with acute exacerbation J45.21 Asthma severity: mild Asthma persistence: intermittent Asthma complication type: with acute exacerbation Allergic rhinitis, unspecified seasonality, unspecified trigger J30.9 Allergic rhinitis trigger: unspecified Allergic rhinitis seasonality: unspecified Acquired hypothyroidism E03.9 Elevated LFTs R79.89 Erosive gastritis K29.60 Vitamin D deficiency E55.9 Osteopenia of lumbar spine M85.88 Osteopenia location: lumbar spine Primary osteoarthritis of both knees M17.0 Osteoarthritis type: primary Additional Codes PHQ-9 - 55503 - PHQ-9 Billing: Yes ([id number]) Assessment & Plan Assessment & Plan (1) Annual physical exam: Code(s): Z00.00 - Encounter for general adult medical examination without abnormal findings Category: Medical Plan: Results of her labs done last week reviewed and discussed with patient She is up-to-date with all of her cancer screenings - she is not due for repeat colonoscopy until 2033 She just had her yearly gynecology exam and pap smear done a few weeks ago and had her annual mammogram done in March 2024 (2) Pure hypercholesterolemia: Code(s): E78.00 - Pure hypercholesterolemia, unspecified Category: Medical Plan: Results of her labs done last week?reviewed and discussed with patient - her cholesterol levels have increased slightly from previous Reinforced low cholesterol diet Continue Rosuvastatin 5 mg QD Will recheck her labs and fasting lipids in 4 months for follow-up (3) Hyperactive airway disease: Code(s): J45.909 - Unspecified asthma, uncomplicated Category: Medical Qualifiers: Asthma severity: mild Asthma persistence: intermittent Asthma complication type: with acute exacerbation Qualified Code(s): J45.21 - Mild intermittent asthma with (acute) exacerbation Plan: PFTs done on 02/03/2020 at [facility] [place] came back completely normal; chest x-rays also came out normal at the time Pulmonary evaluation/consultation revealed no pulmonary etiology for her on and off dyspnea; Metacholine challenge test in 02/2020 came out normal Patient's symptoms of SOB have reportedly improved significantly when she was started on Montelukast 10 mg QD a couple of years ago She was seen by an compounder sterile products previously and was diagnosed with possible hyperreactive airway She was initially started on Flovent HFA 110 mcg 1 inhalation BID but she again had the same issue of hoarseness as she did with Qvar in the past so she stopped using her inhalers; has had no problems so far with oral Montelukast alone She currently has Albuterol HFA that she uses 1 to 2 inhalations only as needed Follow up with compounder sterile products as scheduled or as needed (4) Allergic rhinitis: Code(s): J30.9 - Allergic rhinitis, unspecified Category: Medical Qualifiers: Allergic rhinitis trigger: unspecified Allergic rhinitis seasonality: unspecified Qualified Code(s): J30.9 - Allergic rhinitis, unspecified Plan: Continue Montelukast 10 mg QD - patient stopped using her nasal spray in the past as it was causing recurrent hoarseness (5) Acquired hypothyroidism: Code(s): E03.9 - Hypothyroidism, unspecified Category: Medical Plan: Her TFTs remain normal on her recent labs Continue Levothyroxine 25 mcg QD Will recheck her TFTs in 4 months for follow up (6) Elevated LFTs: Code(s): R79.89 - Other specified abnormal findings of blood chemistry Category: Medical Plan: Her LFTs are back to normal on her recent labs Her elevated LFTs appears to have coincided with the time her diarrhea started a few months ago, after which her respiratory symptoms started as well - all of these gradually resolved over a couple of weeks and have not recurred since Will continue to monitor her LFTs regularly (7) Erosive gastritis: Code(s): K29.60 - Other gastritis without bleeding Category: Medical Plan: Patient had upper GI series done last year (2023) that showed mildly thickened gastric rugal folds and multiple foci of contrast pooling in the fundus, body and antrum of the stomach, suggestive of erosive gastritis and an EGD was recommended for further evaluation She underwent both EGD and repeat colonoscopy on 07/17/2023 and other than a mild hiatal hernia, her EGD and colonoscopy both came back normal Esophageal and GE junction biopsies also both came back normal Patient has been advised to continue with dietary restrictions/precautions to avoid triggering her symptoms but she states that her symptoms have improved a lot over the past several months Follow up with GI as scheduled or as needed (8) Vitamin D deficiency: Code(s): E55.9 - Vitamin D deficiency, unspecified Category: Medical Plan: Continue Vitamin D3 2000 units QD (9) Osteopenia: Code(s): M85.80 - Other specified disorders of bone density and structure, unspecified site Category: Medical Qualifiers: Osteopenia location: lumbar spine Qualified Code(s): M85.88 - Other specified disorders of bone density and structure, other site Plan: Patient's repeat BMD done last week revealed (+) osteopenia of the lumbar spine - her lumbar spine BMD declined by -13.2% compared to her prior exam in 2015 Bone mineral density of the lumbar spine is 0.917, corresponding to a T-score of -2.1, and a Z-score of -0.4. This is indicative of osteopenia Her left total hip and left femoral neck BMD were normal Have advised patient to make sure she is taking her Vitamin D3 (2000 units daily) and oral Calcium supplements (at least 1000 mg daily) regularly and have also encouraged her to exercise regularly Will recheck her BMD in 2 to 3 years for follow up and if her BMD declines further, will need to consider pharmacotherapy (10) Osteoarthritis of both knees: Code(s): M17.0 - Bilateral primary osteoarthritis of knee Category: Medical Qualifiers: Osteoarthritis type: primary Qualified Code(s): M17.0 - Bilateral primary osteoarthritis of knee Plan: Patient gets cortisone injection(s) from orthopedics every few months when needed for symptomatic relief States that her knee pain have improved a lot since she cut back on her pickleball sessions to just 3 times a week Follow up with orthopedics as scheduled Plan Follow up in 4 months Orders: Orders Comprehensive [place]. Panel Fast 4 Months E78.00 - Pure hypercholesterolemia, unspecified Lipid Panel 4 Months E78.00 - Pure hypercholesterolemia, unspecified Vitamin D 25-OH Total 4 Months E55.9 - Vitamin D deficiency, unspecified Free T4 (Free Thyroxine) 4 Months E03.9 - Hypothyroidism, unspecified Thyroid Stimulating Hormone 4 Months E03.9 - Hypothyroidism, unspecified
--- OUTSIDE RECORDS SUMMARY | 2024-07-26 09:04 | XMS_ITS | Patient Health Record ---
Author Organization [facility] Address [address] [place] [address] Care Team Providers Care Rn Oncology Research Name Role Phone Wayne HAYES, [place] Primary Care Provider King Turner Unavailable [phone] Allergies No Known Allergies Reason For Referral [...] Problem Status W/U Status Risk Notes Problem [id number] Colon cancer screening (Z12.11) Active confirmed Problem Diverticular disease of colon (856518451) Diverticulosis of large intestine without perforation or abscess without bleeding (K57.30) Active confirmed Problem [id number] Preprocedural examination (Z01.818) Active confirmed Problem Abnormal UGI series (R93.3) Active confirmed Encounters Encounter Location Date Provider Diagnosis [facility] [address] [place] [id number] 02/05/2024 King De Plan Of Treatment Future Test Test Name Order Date COLONOSCOPY 02/15/2012 COLONOSCOPY 03/28/2023 UPPER GI ENDOSCOPY 07/13/2023 Insurance Providers Payer Name Payer Address Payer Phone Subscriber Number Group Number Insured Name Patient Relationship to Insured Coverage Start Date Coverage End Date [facility] [address] [place], [place] [id number] [phone] [id number] JOSHUA KAUFMAN Self - patient is the insured Medical (General) History Medical History History ICD Code Denies CT,DM,CVA,renal disease Negative screening colonoscopy in 2012 Hypothyroidism Hyperlipdeimia Asthma Surgical History Surgery Date(Month/Year) Tubal ligation
== END 2024-07-26 09:32 | disposition home or self-care (01) ==
LOC: HO.HMCH 08:59
PROVIDERS: PCP Internal Medicine; Visit Provider Internal Medicine
DX: Z00.00 Encounter for general adult medical examination without abnormal findings (principal); E78.00 Pure hypercholesterolemia, unspecified; J45.21 Mild intermittent asthma with (acute) exacerbation; J30.9 Allergic rhinitis, unspecified; E03.9 Hypothyroidism, unspecified; R79.89 Other specified abnormal findings of blood chemistry; K29.60 Other gastritis without bleeding; E55.9 Vitamin D deficiency, unspecified; M85.88 Other specified disorders of bone density and structure, other site; M17.0 Bilateral primary osteoarthritis of knee

== ENCOUNTER → 2024-07-26 08:58 | Outpatient (BNVA) | payer BC, SELFPAY | PROVIDERS: PCP Internal Medicine; Visit Provider Internal Medicine | DX: Z00.00 Encounter for general adult medical examination without abnormal findings (principal); E78.00 Pure hypercholesterolemia, unspecified; J45.21 Mild intermittent asthma with (acute) exacerbation; J30.9 Allergic rhinitis, unspecified; E03.9 Hypothyroidism, unspecified; R79.89 Other specified abnormal findings of blood chemistry; K29.60 Other gastritis without bleeding; E55.9 Vitamin D deficiency, unspecified; M85.88 Other specified disorders of bone density and structure, other site; M17.0 Bilateral primary osteoarthritis of knee; Z79.899 Other long term (current) drug therapy | CPT/HCPCS: 96127 ==

== ENCOUNTER 2024-10-02 10:37 | Outpatient (REF) | payer MEDICARE, SELFPAY ==
--- NOTE | ~2024-10-02 | US_ITS ---
EXAMINATION: US DIAGNOSTIC ULTRASOUND BREAST, LEFT CLINICAL INFORMATION: 6 month follow-up for hypoechoic solid mass versus complicated cyst left breast 8:00 2 cm from the nipple.. COMPARISON: Comparison is made with relevant prior imaging. TECHNIQUE: Ultrasound of the breast is performed with real-time coffey scale imaging and color Doppler. FINDINGS: Targeted color Doppler ultrasound again demonstrates a hypoechoic oval circumscribed solid mass versus complicated cyst at 8:00 2 cm from nipple measuring 2 x 2 x 2 mm not significantly changed from prior to slightly decreased. Results are discussed with the patient at time of visit. US/US breast LT limited mamm only IMPRESSION: Recommend 6 month follow-up left breast ultrasound 8:00 2 cm from the nipple to demonstrate stability for one year of solid mass versus complicated cyst. ASSESSMENT: BI-RADS 3: Probably Benign RECOMMENDATION: Diagnostic mammography in 6 months. This patient's information was entered into a reminder system with a target due date for their next mammogram. Electronically signed by: Kelsey Rodriges DO 10/02/2024 11:26 AM EDT
--- OUTSIDE RECORDS SUMMARY | 2024-10-02 11:18 | XMS_ITS ---
Author Name Zeenat Nash Address Unknown Organization [facility] Care Team Providers Care Agent Based Modeler Name Role Phone Unavailable Primary Care Physician Unavailab le History Of Present Illness This is a 64 year old female who is an established patient who is being seen for an evaluation of skin lesions.Location: body throughoutDuration: yearsPertinent History: family history of non-melanoma skin cancerPertinent Negatives: no history of previous skin cancer, no history of melanoma, and nofamily history of melanomaAdditional Visit Reasons: education and counseling about sun exposure, evaluation for suspicious growths, and evaluation of current neviAdditional History: Patient has a lesion on the left neck that she???d like evaluated, not itchy, painful or irritated. Allergies, Adverse Reactions, Alerts Substance RxNorm Reaction(s) Severity Status Start Da te Sulfa (Sulfonamide Antibiotics) unspecif ied active Medications Medication Generic Name RxNorm Strength Strength Unit Route Dose Dose Form Frequency Date Started Date Ended Status Indication Sig clindamycin phosphate clindamy mayi phosphat e 020709 1 % Topica l lotio n 03/01/19 23 suspend ed Appl y to face twic e juliane y unti l rash subs ides metronidazo le metronid azole 244096 0.75 % Topica l gel 12/07/19 22 suspend ed appl y to face twic e juliane y unti l reso lves , then once juliane y as main celena nce. metronidazo le metronid azole 287502 0.75 % Topica l cream 12/15/19 24 suspend ed Appl y to donna cea BID fluticasone propionate 50 mcg/actua tion Nasal 1 spray ,susp ensio n PRN suspend ed Calcium for Women calcium- vitamin D3-vitam in K 500 mg-100 unit -40 mcg Oral 1 table t,aleksandra wable QD active doxycycline hyclate doxycycl ine hyclate 6819829 100 mg Oral 1 capsu le 01/25/20 22 suspend ed Take one pill with evelina kfas t and dinn er juliane y for one mal h. Do not lie down with in one hour of cons umin g. May caus e head ache s, sun sens itiv ity and yeas t infe ctio n montelukast 10 mg Oral 1 tabl e t QD active rosuvastati n 5 mg Oral 1 table t QD active medroxyPROG ESTERone Acetate NULL 04/23/19 10 active Triamcinolo ne Acetonide NULL 10 active Problems Problem Code Type Status Date of Diagnosis Date of Resolution Family history of malignant neoplasm (situation) 312838953( SNOMED) Diagnosis active 10/02/2024 Rosacea (disorder) 162418113( SNOMED) Diagnosis active 10/02/2024 Melanocytic nevus of trunk (disorder) 958414518( SNOMED) Diagnosis active 10/02/2024 Disorder of cardiovascular system (disorder) 91929457(S NOMED) Diagnosis active 10/02/2024 Seborrheic keratosis (disorder) 580037355( SNOMED) Diagnosis active 10/02/2024 Disorder of pigmentation (disorder) 680867439( SNOMED) Diagnosis active 10/02/2024 Patient encounter status (finding) 521698302( SNOMED) Diagnosis active 10/02/2024 Rosacea (disorder) 842427272( SNOMED) Diagnosis active 12/15/2023 Melanocytic nevus of trunk (disorder) 261448844( SNOMED) Diagnosis active 12/15/2023 Seborrheic keratosis (disorder) 858922770( SNOMED) Diagnosis active 12/15/2023 Disorder of pigmentation (disorder) 383553786( SNOMED) Diagnosis active 12/15/2023 Seborrheic keratosis (disorder) 063896670( SNOMED) Diagnosis active 11/18/2022 Neoplasm of uncertain behavior of skin (disorder) 36069194(S NOMED) Diagnosis active 11/18/2022 Melanocytic nevus (disorder) 556944155( SNOMED) Diagnosis active 11/18/2022 Disorder of pigmentation (disorder) 100232583( SNOMED) Diagnosis active 11/18/2022 Perioral dermatitis (disorder) 903891605( SNOMED) Diagnosis active 12/06/2021 Inflamed seborrheic keratosis (disorder) 344443637( SNOMED) Diagnosis active 12/06/2021 Seborrheic keratosis (disorder) 953552691( SNOMED) Diagnosis active 12/06/2021 Melanocytic nevus of face (disorder) 491576646( SNOMED) Diagnosis active 09/23/2021 Inflamed seborrheic keratosis (disorder) 286562273( SNOMED) Diagnosis active 09/23/2021 Melanocytic nevus of trunk (disorder) 982528013( SNOMED) Diagnosis active 09/23/2021 Benign neoplasm of skin of left upper eyelid (disorder) 0588432784 4006940(SN OMED) Diagnosis active 09/23/2021 Seborrheic keratosis (disorder) 174469375( SNOMED) Diagnosis active 09/23/2021 Hypopigmentation of skin (disorder) 89497093(S NOMED) Diagnosis active 09/23/2021 Hypertrophic condition of skin (disorder) 42768041(S NOMED) Diagnosis active 09/23/2021 Hemangioma of skin and subcutaneous tissue (disorder) 640375935( SNOMED) Diagnosis active 09/23/2021 Patient encounter status (finding) 890228509( SNOMED) Diagnosis active 09/23/2021 Hypercholesterolemia (disorder) 59218184(S NOMED) Problem active Results No data Encounters Service provided at [facility], [address] [place] [address], [address], [place], [place] [id number]. Office phonenumber is [phone]. Office fax number is [phone]. Encounter Diagnosis Location Date / Time Type Family history of non-melano ma skin cancer (Z80.8)Acne Rosacea (L71.8)Benign Appearing Nevi (D22.5)Vascular Malformation (I99.8)Seborrheic Keratoses (L82.1)Lentigines (L81.4)Skin Education (Z71.89) [facility] 10/02/2024 13:00:00 [facility] [id number] Reason For Referral No data Procedures Procedure Date Documentation of current medications (pr ocedure) 10/02/2024 12:00 am [facility] Shave biopsy (procedure) 11/18/2022 12:0 0 am [facility] Cryotherapy of skin lesion with liquid n itrogen (procedure) 12/06/2021 12:00 am [facility] Cryotherapy of skin lesion with liquid n itrogen (procedure) 09/23/2021 12:00 am [facility] Documentation of past medical history (p rocedure) Documentation of past medical history (p rocedure) Documentation of past medical history (p rocedure) Documentation of past medical history (p rocedure) Documentation of past medical history (p rocedure) Documentation of past medical history (p rocedure) Review Of Systems Provider reviewed on Oct 02, 2024.A focused review of systems was performed including Hematologic /Lymphatic and Integumentary.No Problems With Healing, No Problems With Scarring (hypertrophic Or Keloid), And No Problems With Bleeding. Assessment 1.Family history of non-melanoma skin cancer - Father, unknown type on the face.Counseling2.Acne Rosacea, Status: StableCounselingTreatment Regimen: Plan - Can call for refills if needed. 10/02/24Bri admits that she is inconsistent with the use of metronidazole cream. At the moment, thestate of her rosacea does not bother her. She can reach out to the office if symptoms worsend or ifshe needs further support.; Continue Regimen - metronidazole 0.75 % topical cream thin layer BIDCeraVe face wash;.3.Benign Appearing Nevi, Status: UnchangedCounselingMonitoring4.Vascular MalformationCounseling5.Seborrheic KeratosesCounselingReassuranceEducational Resources Provided6.Lentigines, Stat us: UnchangedCounseling7.Skin EducationCounselingEducational Resources ProvidedSunscreen Recommendations Plan of Care Future visit for 10/02/2025 - Follow up in 1 year for: Skin Check - 15 minutes. Other Instructions:1-2 yrs CSE. Other Instructions: 1-2 yrs CSE. Code Detail Instructions 513473 metronidazole 0.75 % topical cre am Apply to rosacea BID 432756 metronidazole 0.75 % topical gel Apply to face twice daily until resolves, then once daily as maintenance. 046979 clindamycin 1 % lotion Apply to face twice daily until rash subsides 9683399 doxycycline hyclate 100 mg capsu le Take one pill with breakfast and dinner daily for one month. Do not lie down within one hour of consuming. May cause headaches, sun sensitivity and yeast infection 398097 metronidazole 0.75 % topical gel apply to face twice daily until resolves, then once daily as maintenance. Instructions * I counseled the patient regarding the following:Skin Care: Patients with a family history of non-melanoma should wear broad spectrum sunscreen and sun protective clothing.Expectations: Patients with a family history of non- melanoma skin cancer should undergo monthly self-skin checks to monitor for a ny new growths that fail to heal, enlarge or become painful.Contact Office if: Patient notices any new or changing lesions. * I counseled the patient regarding the following:Skin care: Patient instructed to wear broad spectrum sunscreen. Moisturizers with green tints can hide redness. Tripwires handout and AAD handout provided today.Contact office if: Rosacea worsens or fails to improve despite months of treatment; patient develops nodules or cysts. * Continue the following treatment(s): metronidazole 0.75 % topical cream thin layer BIDCeraVe face wash. Plan: Can call for refills if needed. 10/02/24Shportillo admits that she is inconsistent with the use of metronidazole cream. At the moment, the state of her rosacea does not bother her. Shecan reach out to the office if symptoms worsend or if she needs further support. * I counseled the patient regarding the following:Instructions: Monthly self- skin checks to monitor for any changes in moles are recommended.Expectations: Benign Nevi are pigmented nests of cells within the skin. No treatment is necessary.Contact Office if: Any moles change in size, shape or color; itch, burn or bleed. * I counseled the patient regarding the following:Skin care: Vascular malformations may be treated with intravascular ablation or surgical excision if needed.Expectations: Vascular Malformations resultfrom congenital disorganization of vascular networks. High flow lesions should be treated. * I counseled the patient regarding the following:Skin Care: Seborrheic Keratoses are benign. No treatment is necessary.Expectations: Seborrheic Keratoses are benign warty growths. Patients get more ofthem as they age. * I counseled the patient regarding the following:Skin Care: Lentigines can resolve with broad spectrum sunscreen, sun avoidance, bleaching creams, retinoids, chemical peels and laser.Expectations: Lentigines are benign pigmented lesions that occur on sun-exposed and sun-damaged skin. They are easilytreatable.I recommended the following: Broad Spectrum Sunscreen SPF 30+ - Tinted mineral sunscreen,spf 30 or higher * I counseled the patient regarding the following:Sun screen (SPF 30 or greater) should be applied during peak UV exposure (between 10am and 2pm) and reapplied after exercise or swimmingI recommended the following: Broad Spectrum Sunscreen SPF 30+Self-Skin Exams Social History Code Activity Start Date End Date 5579495 (SNOMED) Former smoker Sex female Sexual orientation Unspecified Gender identity Unspecified Vital Signs No data
--- OUTSIDE RECORDS SUMMARY | 2024-10-02 11:18 | XMS_ITS | Patient Health Record ---
Author Organization [facility] Address [address] [place] [address] Care Team Providers Care Carpenter'S Helper Name Role Phone Wayne HAYES, Horatio Primary Care Provider King Turner Unavailable [phone] Allergies No Known Allergies Reason For Referral [...] Problem Status W/U Status Risk Notes Problem 232365516 Colon cancer screening (Z12.11) Active confirmed Problem Diverticular disease of colon (394884165) Diverticulosis of large intestine without perforation or abscess without bleeding (K57.30) Active confirmed Problem 608042752023511 Preprocedural examination (Z01.818) Active confirmed Problem Abnormal UGI series (R93.3) Active confirmed Encounters Encounter Location Date Provider Diagnosis [facility] [address] [place] [phone] 02/05/2024 King De Plan Of Treatment Future Test Test Name Order Date COLONOSCOPY 02/15/2012 COLONOSCOPY 03/28/2023 UPPER GI ENDOSCOPY 07/13/2023 Insurance Providers Payer Name Payer Address Payer Phone Subscriber Number Group Number Insured Name Patient Relationship to Insured Coverage Start Date Coverage End Date [facility] [address] [place], [place] [id number] JOSHUA KAUFMAN Self - patient is the insured Medical (General) History Medical History History ICD Code Denies MD,DM,CVA,renal disease Negative screening colonoscopy in 2012 Hypothyroidism Hyperlipdeimia Asthma Surgical History Surgery Date(Month/Year) Tubal ligation
== END 2024-10-02 10:38 | disposition home or self-care (01) ==
LOC: HO.MAMMO 10:37
PROVIDERS: PCP Internal Medicine; Visit Provider Internal Medicine
DX: N60.02 Solitary cyst of left breast (principal)
CPT/HCPCS: 76642

== ENCOUNTER → 2024-10-02 11:00 | Outpatient (BNV) | payer MEDICARE, SELFPAY | PROVIDERS: PCP Internal Medicine; Visit Provider Internal Medicine | DX: R92.8 Other abnormal and inconclusive findings on diagnostic imaging of breast (principal) | CPT/HCPCS: 76642 ==

== ENCOUNTER 2024-11-05 08:17 | Outpatient (AMB) | payer MEDICARE, SELFPAY ==
--- OUTSIDE RECORDS SUMMARY | 2023-06-28 03:30 | XMS_ITS ---
Author Organization [facility] Address [address] [place] [address] Care Team Providers Care Credit Director Name Role Phone Wayne HAYES, Kirk Primary Care Provider UnaKing Mlaoney [phone] REASON FOR VISIT screening Encounters Encounter Location Date Provider Diagnosis [facility] [place] [address] [place] [phone] 06/28/2023 King De Plan Of Treatment No Information Progress Notes * ANNE KAUFMANINEDOB:1960 (64 yo F)Acc No.[id number]:06/28/2023 COLON WITH MAC Patient: JOSHUA POP Provider: Roberto De MD :1960 A ge:62 Y S ex:Female Date:06/28/2023 Address:[facility] [address] [facility] Pcp:Kirk Black MD Subjective: * Chief Complaints: [...] 0 06/28/2023 Generated for Printi ng/Faxing/eTransmitting on: 0 11/05/2024 09:12 AM EDT
--- OUTSIDE RECORDS SUMMARY | 2023-07-17 04:30 | XMS_ITS ---
Author Organization [facility] Address [address] [place] [address] Care Team Providers Care Mechanic Senior Name Role Phone Wayne HAYES, [place] Primary Care Provider Unava ilable King De Unavailable [phone] REASON FOR VISIT screening colon Problems Problem Type SNOMED Code ICD Code Onset Dates Problem Status W/U Status Risk Notes Problem Diverticular disease of colon (292528268) Diverticulosis of large intestine without perforation or abscess without bleeding (K57.30) Active confirmed Encounters Encounter Location Date Provider Diagnosis [facility] [place] [address] [place] [phone] 07/17/2023 King De Encounter for scre ening [...] Notes * ANNE KAUFMANINEDOB:1960 (64 yo F)Acc No.[id number]:07/17/2023 COLON WITH MAC Patient: JOSHUA POP Provider: Roberto De MD :1960 A ge:63 Y S ex:Female Date:07/17/2023 Address:[address] [place], [place] [phone] Pcp:Kirk Black MD Subjective: * Chief Complaints: [...] 4 5378 DIAGNOSTIC COLONOSCOPY, Modifiers: 33 , 68063 UPPER GI ENDOSCOPY, BIOPSY * * The named appointment provid er may or may not be the originator of this progress note, and it is not deemed complete until electronically signed by the appointment provider. Sign off status: Pending * Provider: Roberto De MD Date: 0 07/17/2023 Generated for Rona blackwell/Sonny/Imeldaitting on: 0 11/05/2024 09:12 AM EDT
--- NOTE | 2024-11-05 08:21 | A.OFFVIS_ITS ---
Vital Signs 11/05/24 08:27 Height 5 ft 8 in Weight 136 lb BMI 20.7 Intake Visit Reasons: Inj-B/L knee inj Euflexxa #1 Intake Note: Araceli is a 64 year old female who presents today for her bilateral knee Euflexxa Gel injections #1. Allergies doxycycline Allergy (Severe, Verified 11/05/24 08:27) Hives atorvastatin Adverse Reaction (Intermediate, Verified 11/05/24 08:27) persistent aching in legs bandages Allergy (Severe, Uncoded 07/26/24 09:15) Rash HPI HPI Inj-B/L knee inj Euflexxa #1: Details: Ms. Moulton is a 64-year-old female who presents to the office today for treatment of bilateral knee osteoarthritis. Euflexxa #1 to be administered all the office today. [facility] Medical History (Updated 07/26/24 @ 10:05 by Kirk Black MD) Osteopenia Asthma Acquired hypothyroidism Osteoarthritis of both knees Vitamin D deficiency Multiple nevi Allergic rhinitis Airway hyperreactivity Pure hypercholesterolemia Dyspnea Surgical History History of esophagogastroduodenoscopy (EGD) History of colonoscopy History of tubal ligation Family History Father Stroke Diabetes Hypertension Mother Breast cancer Paternal Aunt Breast cancer Maternal Aunt Colon cancer Social History Housing: House Alcohol intake: current Alcohol intake frequency: holidays/special occasions only Patient Tobacco Use Status: Former Tobacco user e-Cigarette/Vaping Use: Never Used Second Hand Smoke Exposure: Yes service: No Current occupational status: retired Cognitive needs: No Hearing needs: No Vision needs: No Review of Systems Const All systems reviewed & are unremarkable except as noted in HPI and below Physical Exam Vital Signs: BMI result Body Mass Index 20.7 Const General: cooperative, healthy appearing and no acute distress Resp Effort & Inspection: normal respiratory effort and able to speak in complete sentences Extrem Other: Bilateral knee: Normal to inspection. No ecchymosis or erythema. Mild effusion. No tenderness to palpation to the medial or lateral joint lines. Full knee extension and flexion. Mild crepitus felt with ROM. NVI. Assessment & Plan Assessment & Plan (1) Osteoarthritis of left knee: Code(s): M17.12 - Unilateral primary osteoarthritis, left knee Category: Medical (2) Osteoarthritis of right knee: Code(s): M17.11 - Unilateral primary osteoarthritis, right knee Category: Medical Qualifiers: Osteoarthritis type: unspecified Qualified Code(s): M17.11 - Unilateral primary osteoarthritis, right knee Plan The patient was injected with #1 Euflexxa injection in bilateral knees. The patient was explained the risks, benefits, and alternatives to receiving this injection. After receiving consent for the injection, the patient had the procedure done while in the office today. The patient tolerated the procedure well with no complications. Follow-up will be in 1 week for #2 Euflexxa, or sooner if needed. X-rays of the bilateral knees which were obtained while in the office today and were reviewed by me, Pastora Lal PA-C, revealed progressing osteoarthritis left knee, staple arthritis right knee. Orders: Orders XR knee LT 3V Today M25.569 - Pain in unspecified knee XR knee RT 3V Today M25.569 - Pain in unspecified knee Coding Level of Care Code Procedure Only Diagnoses Osteoarthritis of left knee M17.12 Osteoarthritis of right knee, unspecified osteoarthritis type M17.11 Osteoarthritis type: unspecified
[2024-11-05 08:27] VITALS: BMI 20.7
--- OUTSIDE RECORDS SUMMARY | 2024-11-05 09:12 | XMS_ITS | Patient Health Record ---
Author Organization [facility] Address [address] [place] [address] Care Team Providers Care Coin Machine Assembler Name Role Phone Wayne HAYES, [place] Primary Care Provider King Turner Unavailable [phone] Allergies No Known Allergies Reason For Referral [...] Problem Status W/U Status Risk Notes Problem [id number] Colon cancer screening (Z12.11) Active confirmed Problem Diverticular disease of colon (165716018) Diverticulosis of large intestine without perforation or abscess without bleeding (K57.30) Active confirmed Problem 867470293800164 Preprocedural examination (Z01.818) Active confirmed Problem Abnormal UGI series (R93.3) Active confirmed Encounters Encounter Location Date Provider Diagnosis [facility] [address] [place] [phone] 02/05/2024 King De Plan Of Treatment Future Test Test Name Order Date COLONOSCOPY 02/15/2012 COLONOSCOPY 03/28/2023 UPPER GI ENDOSCOPY 07/13/2023 Insurance Providers Payer Name Payer Address Payer Phone Subscriber Number Group Number Insured Name Patient Relationship to Insured Coverage Start Date Coverage End Date [facility] [address] [place], [place] [id number] JOSHUA KAUFMAN Self - patient is the insured Medical (General) History Medical History History ICD Code Denies VT,DM,CVA,renal disease Negative screening colonoscopy in 2012 Hypothyroidism Hyperlipdeimia Asthma Surgical History Surgery Date(Month/Year) Tubal ligation
== END 2024-11-05 08:51 | disposition home or self-care (01) ==
LOC: HO.HOS 08:18
PROVIDERS: PCP Internal Medicine; Visit Provider Physician Assistant
DX: M17.0 Bilateral primary osteoarthritis of knee (principal)
CPT/HCPCS: 20610

== ENCOUNTER 2024-11-05 08:17 | Outpatient (REF) | payer MEDICARE, SELFPAY ==
--- NOTE | ~2024-11-05 | XR_ITS ---
EXAMINATION: XR KNEE 3 VIEWS LEFT, XR KNEE 3 VIEWS RIGHT HISTORY: M25.569 - Pain in unspecified knee COMPARISON: Comparison is made with the prior examination of the right knee dated 08/12/2021 and standing AP views of both knees dated 03/25/2021. FINDINGS: Standing AP views of both knees and additional lateral and sunrise patellar views of the bilateral knees are submitted. Osseous mineralization is normal. There is no fracture or dislocation. On the right, there is mild narrowing of the patellofemoral compartment. On the left, there is mild osteoarthritis of the medial and patellofemoral compartments. The soft tissues are unremarkable. There is no joint effusion. XR/XR knee LT 3V IMPRESSION: Degenerative changes of the bilateral knees as described. Electronically signed by: King Hickman MD 11/05/2024 08:39 AM EDT
--- NOTE | ~2024-11-05 | XR_ITS ---
EXAMINATION: XR KNEE 3 VIEWS LEFT, XR KNEE 3 VIEWS RIGHT HISTORY: M25.569 - Pain in unspecified knee COMPARISON: Comparison is made with the prior examination of the right knee dated 08/12/2021 and standing AP views of both knees dated 03/25/2021. FINDINGS: Standing AP views of both knees and additional lateral and sunrise patellar views of the bilateral knees are submitted. Osseous mineralization is normal. There is no fracture or dislocation. On the right, there is mild narrowing of the patellofemoral compartment. On the left, there is mild osteoarthritis of the medial and patellofemoral compartments. The soft tissues are unremarkable. There is no joint effusion. XR/XR knee RT 3V IMPRESSION: Degenerative changes of the bilateral knees as described. Electronically signed by: King Hickman MD 11/05/2024 08:39 AM EDT
== END 2024-11-05 08:18 | disposition home or self-care (01) ==
LOC: HO.HOSX 08:17
PROVIDERS: PCP Internal Medicine; Visit Provider Physician Assistant
DX: M17.0 Bilateral primary osteoarthritis of knee (principal)
CPT/HCPCS: 20610; 73562; J7323

== ENCOUNTER → 2024-11-05 08:28 | Outpatient (BNV) | payer MEDICARE, SELFPAY | PROVIDERS: PCP Internal Medicine; Visit Provider Radiology Diagnostic Radiology | DX: M17.0 Bilateral primary osteoarthritis of knee (principal) | CPT/HCPCS: 73562 ==

== ENCOUNTER 2024-11-12 14:47 | Outpatient (AMB) | payer MEDICARE, SELFPAY ==
--- OUTSIDE RECORDS SUMMARY | 2023-06-28 03:30 | XMS_ITS ---
Author Organization [facility] Address [address] [place] [address] Care Team Providers Care Egg Breaking Machine Operator Name Role Phone Wayne HAYES, Kirk Primary Care Provider UnaKing Maloney [phone] REASON FOR VISIT screening Encounters Encounter Location Date Provider Diagnosis [facility] Outpatient [address] [place] [phone] 06/28/2023 King De Plan Of Treatment No Information Progress Notes * ANNE KAUFMANINEDOB:1960 (64 yo F)Acc No.[id number]:06/28/2023 COLON WITH MAC Patient: JOSHUA POP Provider: Roberto De MD :1960 A ge:62 Y S ex:Female Date:06/28/2023 Address:[facility] [address] [facility] Pcp:Kirk Black MD Subjective: * Chief Complaints: [...] 06/28/2023 Generated for Printi ng/Faxing/eTransmitting on: 0 11/12/2024 06:29 PM EDT
--- OUTSIDE RECORDS SUMMARY | 2023-07-17 04:30 | XMS_ITS ---
Author Organization [facility] Address [address] [place] [address] Care Team Providers Care Graphics Specialist Name Role Phone Wayne HAYES, [place] Primary Care Provider Unava ilable King De Unavailable [phone] REASON FOR VISIT screening colon Problems Problem Type SNOMED Code ICD Code Onset Dates Problem Status W/U Status Risk Notes Problem Diverticular disease of colon ([id number]) Diverticulosis of large intestine without perforation or abscess without bleeding (K57.30) Active confirmed Encounters Encounter Location Date Provider Diagnosis [facility] Outpatient [address] [place] [phone] 07/17/2023 King De Encounter for scre ening colonoscopy Z12.11 ; Diverticulosis of large intestine without perforation or abscess without bleeding K57.30 ; Other hemorrhoids K64.8 ; Other specified disease of esophagus K22.89 ; Hiatal hernia K44.9 and Abn findings-GI tract R93.3 Assessments Encounter Date Diagnosis (ICD Code) Assessment Notes Treatment Notes Treatment Clinical Notes Section Notes 07/17/2023 Encounter for screening colonoscopy (ICD-10 - Z12.11) 07/17/2023 Diverticulosis of large intestine without perforation or abscess without bleeding (ICD-10 - K57.30) 07/17/2023 Other hemorrhoids (ICD-10 - K64.8) 07/17/2023 Other specified disease of esophagus (ICD-10 - K22.89) 07/17/2023 Hiatal hernia (ICD-10 - K44.9) 07/17/2023 Abn findings-GI tract (ICD-10 - R93.3) Plan Of Treatment No Information Progress Notes * ANNE KAUFMANINEDOB:1960 (64 yo F)Acc No.[id number]:07/17/2023 COLON WITH MAC Patient: JOSHUA POP Provider: Roberto De MD :1960 A ge:63 Y S ex:Female Date:07/17/2023 Address:[address] [place], [place] [phone] Pcp:Kirk Black MD Subjective: * Chief Complaints: * 1 . Screening colon. * Medical History: Objective: * Vitals: Assessment: * Assessment: 1. E ncounter for screening colonoscopy - Z12.11 (Primary) 2 . D iverticulosis of large intestine without perforation or abscess without bleeding - K57.30 3 .?Other hemorrhoids - K64.8 4 . O ther specified disease of esophagus - K22.89 5 . H iatal hernia - K44.9 6 . A bn findings-GI tract - R93.3 Plan: * Treatment: * Procedure Codes: 4 5378 DIAGNOSTIC COLONOSCOPY, Modifiers: 33 , 01406 UPPER GI ENDOSCOPY, BIOPSY * * The named appointment provid er may or may not be the originator of this progress note, and it is not deemed complete until electronically signed by the appointment provider. Sign off status: Pending * Provider: Roberto De MD Date: 0 07/17/2023 Generated for Rona blackwell/Sonny/Imeldaitting on: 0 11/12/2024 06:31 PM EDT
--- NOTE | 2024-11-12 15:02 | MHC.OFFVIS ---
Intake Visit Reasons: Inj-B/L knee inj Euflexxa #2 Intake Note: Araceli is a 64 year old female who presents today for her bilateral knee Euflexxa gel injection #2. Patient states she hasn't noticed any changes in her pain. Allergies doxycycline Allergy (Severe, Verified 11/12/24 15:03) Hives atorvastatin Adverse Reaction (Intermediate, Verified 11/12/24 15:03) persistent aching in legs bandages Allergy (Severe, Uncoded 07/26/24 09:15) Rash HPI HPI Inj-B/L knee inj Euflexxa #2: Details: Ms. Kenney gabriel is a 64-year-old female who presents to the office today for bilateral knee Euflexxa injections #2. She reports she has not seen much difference in pain after the 1st injections. [facility] Medical History (Updated 07/26/24 @ 10:05 by Kirk Black MD) Osteopenia Asthma Acquired hypothyroidism Osteoarthritis of both knees Vitamin D deficiency Multiple nevi Allergic rhinitis Airway hyperreactivity Pure hypercholesterolemia Dyspnea Surgical History History of esophagogastroduodenoscopy (EGD) History of colonoscopy History of tubal ligation Family History Father Stroke Diabetes Hypertension Mother Breast cancer Paternal Aunt Breast cancer Maternal Aunt Colon cancer Social History Housing: House Alcohol intake: current Alcohol intake frequency: holidays/special occasions only Patient Tobacco Use Status: Former Tobacco user e-Cigarette/Vaping Use: Never Used Second Hand Smoke Exposure: Yes service: No Current occupational status: retired Cognitive needs: No Hearing needs: No Vision needs: No Review of Systems Const All systems reviewed & are unremarkable except as noted in HPI and below Physical Exam Const General: cooperative, healthy appearing and no acute distress Resp Effort & Inspection: normal respiratory effort and able to speak in complete sentences Extrem Other: Bilateral knee: Normal to inspection. No ecchymosis or erythema. Mild effusion. No tenderness to palpation to the medial or lateral joint lines. Full knee extension and flexion. Mild crepitus felt with ROM. NVI. Office Procedures AMB Joint Injection/Aspiration Joint Injection/Aspiration Primary Site: right knee Secondary Site: left knee Prep: site was prepped using aseptic technique, ethochloride spray was applied and injection warnings given Injected: other (Euflexxa #2) Approach Used: anterolateral Procedure: The patient tolerated the procedure well, but had some pain with the injection and there was some relief with the local anesthesia Coding - Bilateral Large Joint Procedure code (CPT) selection complete Assessment & Plan Assessment & Plan (1) Osteoarthritis of left knee: Code(s): M17.12 - Unilateral primary osteoarthritis, left knee Category: Medical (2) Osteoarthritis of left knee: Code(s): M17.12 - Unilateral primary osteoarthritis, left knee Category: Medical Qualifiers: Osteoarthritis type: unspecified Qualified Code(s): M17.12 - Unilateral primary osteoarthritis, left knee Plan The patient was offered bilateral knee Euflexxa # 2 injections. The patient was explained the risks, benefits, and alternatives to receiving this injection. After receiving consent for the injection, the patient had the procedure done while in the office today. The patient tolerated the procedure well with no complications. Follow-up will be in 1 week for Euflexxa #3, or sooner if needed Coding Level of Care Code Global (94764) Diagnoses Osteoarthritis of left knee M17.12 CPT Codes Coding - - Bilateral Large Joint: 18296 - Bilateral Large Joint ([id number])
--- OUTSIDE RECORDS SUMMARY | 2024-11-12 18:29 | XMS_ITS | Patient Health Record ---
Author Organization [facility] Address [address] [place] [address] Care Team Providers Care Ciaio Counter Molder Name Role Phone Wayne HAYES, [place] Primary Care Provider King Turner Unavailable [phone] Allergies No Known Allergies Reason For Referral [...] Problem Status W/U Status Risk Notes Problem [id number] Colon cancer screening (Z12.11) Active confirmed Problem Diverticular disease of colon (610018735) Diverticulosis of large intestine without perforation or abscess without bleeding (K57.30) Active confirmed Problem [id number] Preprocedural examination (Z01.818) Active confirmed Problem Abnormal UGI series (R93.3) Active confirmed Encounters Encounter Location Date Provider Diagnosis [facility] [address] [place] [phone] 02/05/2024 King De Plan Of Treatment Future Test Test Name Order Date COLONOSCOPY 02/15/2012 COLONOSCOPY 03/28/2023 UPPER GI ENDOSCOPY 07/13/2023 Insurance Providers Payer Name Payer Address Payer Phone Subscriber Number Group Number Insured Name Patient Relationship to Insured Coverage Start Date Coverage End Date [facility] [address] [place], [place] [id number] [phone] [id number] JOSHUA KAUFMAN Self - patient is the insured Medical (General) History Medical History History ICD Code Denies SC,DM,CVA,renal disease Negative screening colonoscopy in 2012 Hypothyroidism Hyperlipdeimia Asthma Surgical History Surgery Date(Month/Year) Tubal ligation
== END 2024-11-12 15:28 | disposition home or self-care (01) ==
LOC: HO.HOS 14:48
PROVIDERS: PCP Internal Medicine; Visit Provider Physician Assistant
DX: M17.12 Unilateral primary osteoarthritis, left knee (principal)
CPT/HCPCS: 20610; 99213

== ENCOUNTER → 2024-11-12 14:47 | Outpatient (BNVA) | payer MEDICARE, SELFPAY | PROVIDERS: PCP Internal Medicine; Visit Provider Physician Assistant | DX: M17.12 Unilateral primary osteoarthritis, left knee (principal); M17.11 Unilateral primary osteoarthritis, right knee | CPT/HCPCS: 20610; 99212; J7323 ==

== ENCOUNTER 2024-11-19 14:35 | Outpatient (AMB) | payer MEDICARE, SELFPAY ==
--- OUTSIDE RECORDS SUMMARY | 2023-06-28 03:30 | XMS_ITS ---
Author Organization [facility] Address [address] [place] [address] Care Team Providers Care Saw Filer Name Role Phone Wayne HAYES, Kirk Primary Care Provider UnaKing Maloney [phone] REASON FOR VISIT screening Encounters Encounter Location Date Provider Diagnosis [facility] Outpatient [address] [place] [id number] 06/28/2023 King De Plan Of Treatment No Information Progress Notes * ANNE KAUFMANINEDOB:1960 (64 yo F)Acc No.[id number]:06/28/2023 COLON WITH MAC Patient: JSOHUA POP Provider: Roberto De MD :1960 A ge:62 Y S ex:Female Date:06/28/2023 Address:[facility] [address] [facility] Pcp:Kirk Black MD Subjective: * Chief Complaints: [...] 06/28/2023 Generated for Printi ng/Faxing/eTransmitting on: 0 11/19/2024 05:48 PM EDT
--- OUTSIDE RECORDS SUMMARY | 2023-07-17 04:30 | XMS_ITS ---
Author Organization [facility] Address [address] [place] [address] Care Team Providers Care Low Voltage Electrician Name Role Phone Wayne HAYES, [place] Primary Care Provider Unava ilable King De Unavailable [phone] REASON FOR VISIT screening colon Problems Problem Type SNOMED Code ICD Code Onset Dates Problem Status W/U Status Risk Notes Problem Diverticular disease of colon (556815811) Diverticulosis of large intestine without perforation or abscess without bleeding (K57.30) Active confirmed Encounters Encounter Location Date Provider Diagnosis [facility] [place] [address] [place] [phone] 07/17/2023 King De Encounter for scre ening [...] Notes * ANNE KAUFMANINEDOB:1960 (64 yo F)Acc No.[id number]:07/17/2023 COLON WITH MAC Patient: JOSHUA POP Provider: Roberto De MD :1960 A ge:63 Y S ex:Female Date:07/17/2023 Address:[address] [place], [place] [phone] Pcp:Kirk Black MD Subjective: * Chief Complaints: [...] 4 5378 DIAGNOSTIC COLONOSCOPY, Modifiers: 33 , 11781 UPPER GI ENDOSCOPY, BIOPSY * * The named appointment provid er may or may not be the originator of this progress note, and it is not deemed complete until electronically signed by the appointment provider. Sign off status: Pending * Provider: Roberto De MD Date: 0 07/17/2023 Generated for Rona blackwell/Sonny/Imeldaitting on: 0 11/19/2024 05:48 PM EDT
--- NOTE | 2024-11-19 14:40 | A.OFFVIS_ITS ---
Intake Visit Reasons: Inj-B/L knee inj Euflexxa #3 Intake Note: Araceli is a 64 year old female who presents today for her bilateral knee Euflexxa gel injection #3. Patient states she is having a lot of pain. She notices that her pain is on the medial aspect of her knee. Her pain is worse when she is bending. Patient does have plans coming up very soon and is thinking about cancelling due to the pain. Allergies doxycycline Allergy (Severe, Verified 11/19/24 14:49) Hives atorvastatin Adverse Reaction (Intermediate, Verified 11/19/24 14:49) persistent aching in legs bandages Allergy (Severe, Uncoded 07/26/24 09:15) Rash HPI HPI Inj-B/L knee inj Euflexxa #3: Details: Ms. Moulton is a 64year old female who presents to the office today for bilateral Eufelxxa #3 injections. She reports no change in pain levels. She states that she is no longer able to participate in the activities that she used to and her pain is greatly impacting her quality of life. She reports that the left knee is worse than her right and the pain is located along the medial aspect of the knee. [facility] Medical History (Updated 07/26/24 @ 10:05 by Kirk Black MD) Osteopenia Asthma Acquired hypothyroidism Osteoarthritis of both knees Vitamin D deficiency Multiple nevi Allergic rhinitis Airway hyperreactivity Pure hypercholesterolemia Dyspnea Surgical History History of esophagogastroduodenoscopy (EGD) History of colonoscopy History of tubal ligation Family History Father Stroke Diabetes Hypertension Mother Breast cancer Paternal Aunt Breast cancer Maternal Aunt Colon cancer Social History Housing: House Alcohol intake: current Alcohol intake frequency: holidays/special occasions only Patient Tobacco Use Status: Former Tobacco user e-Cigarette/Vaping Use: Never Used Second Hand Smoke Exposure: Yes service: No Current occupational status: retired Cognitive needs: No Hearing needs: No Vision needs: No Review of Systems Const All systems reviewed & are unremarkable except as noted in HPI and below Physical Exam Const General: cooperative, healthy appearing and no acute distress Resp Effort & Inspection: normal respiratory effort and able to speak in complete sentences Extrem Other: Bilateral knee: Normal to inspection. No ecchymosis or erythema. Mild effusion. No tenderness to palpation to the medial or lateral joint lines. Full knee extension and flexion. Mild crepitus felt with ROM. NVI. Psych Appearance: grossly normal Mental Status: mental status grossly normal Attitude: cooperative Office Procedures AMB Joint Injection/Aspiration Joint Injection/Aspiration Primary Site: right knee Secondary Site: left knee Prep: site was prepped using aseptic technique, ethochloride spray was applied and injection warnings given Injected: in the joint and other (Euflexxa #3) Approach Used: anterolateral Procedure: The patient tolerated the procedure well, but had some pain with the injection and there was some relief with the local anesthesia Coding 07433 - Bilateral Large Joint Procedure code (CPT) selection complete Assessment & Plan Assessment & Plan (1) Osteoarthritis of both knees: Code(s): M17.0 - Bilateral primary osteoarthritis of knee Category: Medical Qualifiers: Osteoarthritis type: primary Qualified Code(s): M17.0 - Bilateral primary osteoarthritis of knee Plan The patient was offered a Euflexxa #3 injections in bilateral knees. The patient was explained the risks, benefits, and alternatives to receiving this injection. After receiving consent for the injection, the patient had the procedure done while in the office today. The patient tolerated the procedure well with no complications. Additionally, the patient reports that she is going to [place] for sightseeing and is concerned about her ability to ambulate without pain. I have provided the patient a pair of crutches off the shelf while in the office today. She may pe rform ay activity to tolerance without restrction. I have recommended a followup appointment with Dr. Montesinos for further discussion of this patient's treatment plan. Follow-up will be with Dr. Montesinos, or sooner if needed Coding Level of Care Code Procedure Only Diagnoses Primary osteoarthritis of both knees M17.0 Osteoarthritis type: primary CPT Codes Coding - 16378 - Bilateral Large Joint: 22108 - Bilateral Large Joint ([id number])
--- OUTSIDE RECORDS SUMMARY | 2024-11-19 17:48 | XMS_ITS | Patient Health Record ---
Author Organization [facility] Address [address] [place] [address] Care Team Providers Care Dentist Name Role Phone Wayne HAYES, [place] Primary Care Provider King Turner Unavailable [phone] Allergies No Known Allergies Reason For Referral [...] Problem Status W/U Status Risk Notes Problem [id number] Colon cancer screening (Z12.11) Active confirmed Problem Diverticular disease of colon (136729100) Diverticulosis of large intestine without perforation or abscess without bleeding (K57.30) Active confirmed Problem [id number] Preprocedural examination (Z01.818) Active confirmed Problem Abnormal UGI series (R93.3) Active confirmed Encounters Encounter Location Date Provider Diagnosis [facility] [address] [place] [phone] 02/05/2024 King De Plan Of Treatment Future Test Test Name Order Date COLONOSCOPY 02/15/2012 COLONOSCOPY 03/28/2023 UPPER GI ENDOSCOPY 07/13/2023 Insurance Providers Payer Name Payer Address Payer Phone Subscriber Number Group Number Insured Name Patient Relationship to Insured Coverage Start Date Coverage End Date [facility] [address] [place], [place] [id number] JOSHUA KAUFMAN Self - patient is the insured Medical (General) History Medical History History ICD Code Denies MS,DM,CVA,renal disease Negative screening colonoscopy in 2012 Hypothyroidism Hyperlipdeimia Asthma Surgical History Surgery Date(Month/Year) Tubal ligation
== END 2024-11-19 15:24 | disposition home or self-care (01) ==
LOC: HO.HOS 14:36
PROVIDERS: PCP Internal Medicine; Visit Provider Physician Assistant
DX: M17.0 Bilateral primary osteoarthritis of knee (principal)
CPT/HCPCS: 20610

== ENCOUNTER → 2024-11-19 14:35 | Outpatient (BNVA) | payer MEDICARE, SELFPAY | PROVIDERS: PCP Internal Medicine; Visit Provider Physician Assistant | DX: M17.0 Bilateral primary osteoarthritis of knee (principal) | CPT/HCPCS: 20610; J7323 ==

== ENCOUNTER 2024-12-02 09:26 | Outpatient (AMB) | payer MEDICARE, SELFPAY ==
--- OUTSIDE RECORDS SUMMARY | 2023-06-28 03:30 | XMS_ITS ---
Author Organization [facility] Address [address] [place] [address] Care Team Providers Care Platform Worker Name Role Phone Wayne HAYES, Kirk Primary Care Provider UnaKing Maloney [phone] REASON FOR VISIT screening Encounters Encounter Location Date Provider Diagnosis [facility] Outpatient [address] [place] [id number] 06/28/2023 King De Plan Of Treatment No Information Progress Notes * ANNE KAUFMANINEDOB:1960 (64 yo F)Acc No.[id number]:06/28/2023 COLON WITH MAC Patient: JOSHUA POP Provider: Robetro De MD :1960 A ge:62 Y S ex:Female Date:06/28/2023 Address:[facility] [address] [facility] Pcp:Kirk Black MD Subjective: * Chief Complaints: * 1 . Screening. * Medical History: Objective: * Vitals: Assessment: Plan: * Treatment: * * The named appointment provid er may or may not be the originator of this progress note, and it is not deemed complete until electronically signed by the appointment provider. Sign off status: Pending * Provider: Roberto De MD Date: 0 06/28/2023 Generated for Printi ng/Faxing/eTransmitting on: 1 10:40 AM EDT
--- OUTSIDE RECORDS SUMMARY | 2023-07-17 04:30 | XMS_ITS ---
Author Organization [facility] Address [address] [place] [address] Care Team Providers Care Harbor Pilot Name Role Phone Wayne HAYES, [place] Primary Care Provider Unava ilable King De Unavailable [phone] REASON FOR VISIT screening colon Problems Problem Type SNOMED Code ICD Code Onset Dates Problem Status W/U Status Risk Notes Problem Diverticular disease of colon (582457457) Diverticulosis of large intestine without perforation or abscess without bleeding (K57.30) Active confirmed Encounters Encounter Location Date Provider Diagnosis [facility] [place] [address] [place] [phone] 07/17/2023 King De Encounter for scre ening [...] Notes * ANNE KAUFMANINEDOB:1960 (64 yo F)Acc No.[id number]:07/17/2023 COLON WITH MAC Patient: JOSHUA POP Provider: Roberto De MD :1960 A ge:63 Y S ex:Female Date:07/17/2023 Address:[address] [place], [place] [phone] Pcp:Kirk Black MD Subjective: * Chief Complaints: [...] 4 5378 DIAGNOSTIC COLONOSCOPY, Modifiers: 33 , 31648 UPPER GI ENDOSCOPY, BIOPSY * * The named appointment provid er may or may not be the originator of this progress note, and it is not deemed complete until electronically signed by the appointment provider. Sign off status: Pending * Provider: Roberto De MD Date: 0 07/17/2023 Generated for Rona blackwell/Sonny/eTransmitting on: 1 10:40 AM EDT
--- NOTE | 2024-12-02 09:28 | MHC.OFFVIS ---
Intake Visit Reasons: OV - B/L knee OA, discuss surgery Intake Note: Araceli is a 64 year old female who presents today for a follow up of her Bilateral Knee OA. She has been seen with Pastora Lal in the past where she has tried and failed multiple cortisone and Gel (Euflexxa) injections. She reports that only the left knee is bothering her. The right knee is relatively asymptomatic Allergies doxycycline Allergy (Severe, Verified 12/02/24 09:29) Hives atorvastatin Adverse Reaction (Intermediate, Verified 12/02/24 09:29) persistent aching in legs bandages Allergy (Severe, Uncoded 12/02/24 09:29) Rash HPI HPI OV - B/L knee OA, discuss surgery: Details: This is a active and healthy 64-year-old woman who comes in with a several year history of left knee pain. She reports having had multiple steroid injections which were initially helpful but became less helpful over time. She had an MRI about 18 months ago which showed a medial meniscus tear. Her pain however has worsened over the past 6 months to the point that she has been unable to play pickleball or walk for extended distances comfortably. She states she feels like she is limping. She would like to be able to engage in daily recreational activity without pain. Most of her pain is on the inside of the knee . She states her knee does occasionally swell up as well. [facility] Medical History (Updated 12/02/24 @ 11:06 by Freddie Montesinos MD) Osteopenia Asthma Acquired hypothyroidism Osteoarthritis of both knees Vitamin D deficiency Multiple nevi Allergic rhinitis Airway hyperreactivity Pure hypercholesterolemia Dyspnea Surgical History History of esophagogastroduodenoscopy (EGD) History of colonoscopy History of tubal ligation Family History Father Stroke Diabetes Hypertension Mother Breast cancer Paternal Aunt Breast cancer Maternal Aunt Colon cancer Social History Housing: House Alcohol intake: current Alcohol intake frequency: holidays/special occasions only Patient Tobacco Use Status: Former Tobacco user e-Cigarette/Vaping Use: Never Used Second Hand Smoke Exposure: Yes service: No Current occupational status: retired Cognitive needs: No Hearing needs: No Vision needs: No Physical Exam Exam Exam: Pleasant healthy woman who appears younger than her stated age. Her left knee is notable for approximate 5 degree loss of terminal extension and flexion to 130. She walks with mild gait antalgia. She has mild varus alignment. She has a positive Zeeshan's and deep flexion and joint line tenderness with no effusion. Results Reviewed Results Reviewed: I personally reviewed relevant radiographs. I reviewed her radiographs and she has mild medial and anterior compartment osteoarthritis bilaterally I personally reviewed the MR images. I reviewed her MRI and she has some mild chondral thinning of the medial femoral condyle and a tear of the medial meniscus. Assessment & Plan Assessment & Plan (1) Tear of medial meniscus of left knee: Code(s): S83.242A - Other tear of medial meniscus, current injury, left knee, initial encounter Category: Medical Plan: This is a 64-year-old woman with left knee pain that is preventing her from walking comfortably and playing pickleball. I reviewed her imaging and based upon her history and physical exam I recommend knee arthroscopy for partial medial meniscectomy.. There is no evidence of severe arthritis. She has a loss of terminal extension and a positive Zeeshan's in deep flexion. I discussed arthroscopic surgery with her and I also discussed arthroplasty. At this time, I think arthroplasty is too aggressive. There is no evidence that she has severe arthritis and I think there is a reasonable chance that she would benefit from knee arthroscopy. I did warn her that knee arthroscopy in the setting of osteoarthritis can lead to swelling and delayed recovery but that it is a low risk surgery. The risk of stiffness, persistent pain and incomplete symptom resolution were discussed. She is amenable to the plan. I answered her questions the best of my abilities and we will proceed forward accordingly. Coding Level of Care Code Est Pt Level 4 (29444) Diagnoses Tear of medial meniscus of left knee S83.242A
--- OUTSIDE RECORDS SUMMARY | 2024-12-02 10:40 | XMS_ITS | Patient Health Record ---
Author Organization [facility] Address [address] [place] [address] Care Team Providers Care Communication Skills Instructor Name Role Phone Wayne HAYES, [place] Primary Care Provider King Turner Unavailable [phone] Allergies No Known Allergies Reason For Referral [...] Problem Status W/U Status Risk Notes Problem 255847225 Colon cancer screening (Z12.11) Active confirmed Problem Diverticular disease of colon (756552888) Diverticulosis of large intestine without perforation or abscess without bleeding (K57.30) Active confirmed Problem 408950288227581 Preprocedural examination (Z01.818) Active confirmed Problem Abnormal UGI series (R93.3) Active confirmed Encounters Encounter Location Date Provider Diagnosis [facility] [address] [place] [phone] 02/05/2024 King De Plan Of Treatment Future Test Test Name Order Date COLONOSCOPY 02/15/2012 COLONOSCOPY 03/28/2023 UPPER GI ENDOSCOPY 07/13/2023 Insurance Providers Payer Name Payer Address Payer Phone Subscriber Number Group Number Insured Name Patient Relationship to Insured Coverage Start Date Coverage End Date [facility] [address] [place], [place] [id number] JOSHUA KAUFMAN Self - patient is the insured Medical (General) History Medical History History ICD Code Denies MT,DM,CVA,renal disease Negative screening colonoscopy in 2012 Hypothyroidism Hyperlipdeimia Asthma Surgical History Surgery Date(Month/Year) Tubal ligation
== END 2024-12-02 10:23 | disposition home or self-care (01) ==
LOC: HO.HOS 09:27
PROVIDERS: PCP Internal Medicine; Visit Provider Orthopaedic Surgery
DX: S83.242A Other tear of medial meniscus, current injury, left knee, initial encounter (principal)
CPT/HCPCS: 99214

== ENCOUNTER → 2024-12-02 09:26 | Outpatient (BNVA) | payer MEDICARE, SELFPAY | PROVIDERS: PCP Internal Medicine; Visit Provider Orthopaedic Surgery | DX: M17.0 Bilateral primary osteoarthritis of knee (principal); S83.242A Other tear of medial meniscus, current injury, left knee, initial encounter; X58.XXXA Exposure to other specified factors, initial encounter; Y93.9 Activity, unspecified; Y92.9 Unspecified place or not applicable; Y99.9 Unspecified external cause status | CPT/HCPCS: 99212 ==

== ENCOUNTER 2024-12-18 05:50 | Day surgery (SDC) | payer MEDICARE, SELFPAY ==
[2024-12-05 09:07] VITALS: BMI 21.1
--- NOTE | 2024-12-05 13:19 | HO.ANESPROP2 ---
Documented by User: Mirta Perez NP 12/05/24 13:20 HPI - Anesthesia Eval Consult details Narrative: 64yo F for Left Knee Arthroscopy, 12/18/24 PMF Active Problems Active Problems: All Active Problems Tear of medial meniscus of left knee (Acute) Annual physical exam (Acute) Well woman exam (Acute) Elevated LFTs (Acute) Hyperactive airway disease (Acute) Respiratory tract infection (Acute) Disorder of peristalsis of esophagus (Acute) Esophageal stricture (Acute) Erosive gastritis (Acute) Cricopharyngeal spasm (Acute) Subclinical hypothyroidism (Acute) Right hip pain (Acute) Osteoarthritis of right knee (Acute) Osteoarthritis of left knee (Acute) Left otitis media (Acute) Headache (Acute) Viral illness (Acute) Otitis externa (Acute) Otitis media (Acute) Osteoarthritis of left knee (Acute) Elevated TSH (Acute) Viral respiratory illness (Acute) Exposure to COVID-19 virus (Acute) Encounter for annual routine gynecological examination (Acute) Osteopenia (Acute) Acquired hypothyroidism (Acute) Osteoarthritis of both knees (Acute) Vitamin D deficiency (Acute) Multiple nevi (Acute) Allergic rhinitis (Acute) Pure hypercholesterolemia (Acute) Dyspnea (Acute) Past Medical History Medical History (Updated 12/05/24 @ 08:53 by Kadi Marc RN) Thyroid disease Osteopenia Asthma Acquired hypothyroidism Osteoarthritis of both knees Vitamin D deficiency Multiple nevi Allergic rhinitis Airway hyperreactivity Pure hypercholesterolemia Dyspnea Family History Family History Father Stroke Diabetes Hypertension Mother Breast cancer Paternal Aunt Breast cancer Maternal Aunt Colon cancer Family history of problems with anesthesia: No Surgical History Surgical History History of esophagogastroduodenoscopy (EGD) History of colonoscopy History of tubal ligation History of Problems with Anesthesia: No Social History Social History Housing: House Are you a primary intensive care unit registered nurse to a significant other at home: No Do you presently have visiting nurse or other home services: No Alcohol intake: current Alcohol intake frequency: a few times a month Patient Tobacco Use Status: Former Tobacco user e-Cigarette/Vaping Use: Never Used Second Hand Smoke Exposure: Yes Use of substances other than those prescribed or required for medical reasons: No Have you been hit, kicked, punched, or otherwise hurt by someone within the past year? If so, by whom?: No Are you DNR?: No Advance Directives: No Advance Directives Information Provided: Yes Advance Directives on File: No Patient : No : No Poor oral hygiene: Yes service: No Current occupational status: retired Cognitive needs: No Hearing needs: No Vision needs: No Meds Allergies Allergy/AdvReac Type Severity Reaction Status Date / Time doxycycline Allergy Severe Hives Verified 12/02/24 09:29 atorvastatin AdvReac Intermediate persistent Verified 12/02/24 09:29 aching in legs bandages Allergy Severe Rash Uncoded 12/02/24 09:29 Home Medications ?Medication ?Instructions ?Recorded ?Confirmed ?Last Taken ?Type calcium 500 mg (as 2 tab PO DAILY 12/05/24 12/05/24 Unknown History carbonate)-vitamin D3 3.125 mcg (125 unit) tablet montelukast 10 mg tablet 10 mg PO BEDTIME 12/05/24 12/05/24 Unknown History rosuvastatin 5 mg tablet 5 mg PO BEDTIME 12/05/24 12/05/24 Unknown History Exam Height,Weight and Vital Signs: Height 5 ft 7.5 in Weight 62.142 kg Assessment and Plan Assessment Anesthesia Assessment: Chart Reviewed Final Anesthetic Review Family History of Problems with Anesthesia: No History of Problems with Anesthesia: No Documented by User: Estefany Mcintyre MD 12/18/24 07:48 PMFSH Past Medical History Medical History (Updated 12/05/24 @ 08:53 by Kadi Marc RN) Thyroid disease Osteopenia Asthma Acquired hypothyroidism Osteoarthritis of both knees Vitamin D deficiency Multiple nevi Allergic rhinitis Airway hyperreactivity Pure hypercholesterolemia Dyspnea Family History Family History Father Stroke Diabetes Hypertension Mother Breast cancer Paternal Aunt Breast cancer Maternal Aunt Colon cancer Surgical History Surgical History History of esophagogastroduodenoscopy (EGD) History of colonoscopy History of tubal ligation Social History Social History Housing: House Are you a primary intensive care unit registered nurse to a significant other at home: No Do you presently have visiting nurse or other home services: No Alcohol intake: current Alcohol intake frequency: a few times a month Patient Tobacco Use Status: Former Tobacco user e-Cigarette/Vaping Use: Never Used Second Hand Smoke Exposure: Yes Use of substances other than those prescribed or required for medical reasons: No Have you been hit, kicked, punched, or otherwise hurt by someone within the past year? If so, by whom?: No Are you DNR?: No Advance Directives: No Advance Directives Information Provided: Yes Advance Directives on File: No Patient : No : No Poor oral hygiene: Yes service: No Current occupational status: retired Cognitive needs: No Hearing needs: No Vision needs: No Meds Allergies Allergy/AdvReac Type Severity Reaction Status Date / Time doxycycline Allergy Severe Hives Verified 12/02/24 09:29 atorvastatin AdvReac Intermediate persistent Verified 12/02/24 09:29 aching in legs bandages Allergy Severe Rash Uncoded 12/02/24 09:29 Home Medications ?Medication ?Instructions ?Recorded ?Confirmed ?Last Taken ?Type calcium 500 mg (as 2 tab PO DAILY 12/05/24 12/05/24 Unknown History carbonate)-vitamin D3 3.125 mcg (125 unit) tablet montelukast 10 mg tablet 10 mg PO BEDTIME 12/05/24 12/05/24 Unknown History rosuvastatin 5 mg tablet 5 mg PO BEDTIME 12/05/24 12/05/24 Unknown History Exam Airway Mallampati Class: III TM Dist: <=3cm Neck ROM: Limited Heart: rrr Lungs: cta Assessment and Plan Assessment Anesthesia Assessment: Anesthesia Plan Discussed Final Anesthetic Review NPO: Yes ASA Class: III Final Preanesthetic Review: No Changes in Pt Med Stat, Meds/Allgs Chart Reviewed, Consent Obtained/Reviewed and Anes Risks/Benef Reviewed Patient Risk: Intermediate Procedure Risk: Intermediate Anesthetic Plan Anesthetic Plan: GA and Agree w/ Assess. and Plan Disposition: Standard PACU
[2024-12-18] VITALS (8 sets, daily range): BP systolic 116–132; BP diastolic 46–68; PULSE 55–90; RESP 10–18; TEMP 36.1–36.4; O2SAT 97–100; BMI 21.5
[2024-12-18] MEDS: Lactated Ringers 1,000 ML 100 ML IVCONT (06:14)
--- NOTE | 2024-12-18 07:27 | MHC.SHP ---
Pre-Procedural Eval Section A - 24 Hr Update-Section A only Date of Service: 12/18/24 The patient is an INPATIENT: No Changes since office visit: No Cold of Flu in the past 2 weeks, No New Medical Problems, No Changes in Medication and No Patient answered all questions The patient has been examined within 24 hours of the surgical procedure. The History & Physical has been completed within 30 days and I have reviewed it.: Yes Section B - Complete if H&P > 30 days Chief Complaint: Complex tear of medial meniscus, current injury, Allergies: Allergies Allergy/AdvReac Type Severity Reaction Status Date / Time doxycycline Allergy Severe Hives Verified 12/02/24 09:29 atorvastatin AdvReac Intermediate persistent Verified 12/02/24 09:29 aching in legs bandages Allergy Severe Rash Uncoded 12/02/24 09:29 Plan I have reviewed the history and physical and performed a pertinent physical examination on my patient. No changes have occurred unless specified. Time Spent With Patient Time: Total time managing care of this patient today ____ minutes.
--- NOTE | 2024-12-18 08:37 | PM.OP ---
Brief Operative Note Date of Service: 12/18/24 Pre-op diagnosis: Left MMT Post-op diagnosis: other (left mmt; left knee OA) Procedure: Left knee partial MM and chondroplasty Implants: none Surgeon: Freddie Montesinos MD Anesthesia: GETA and regional Was an Director Sterile Processing used for this Procedure?: Yes Director Sterile Processing: Lan Patel Estimated blood loss (mL): 5 Tourniquet time (min): 26 IV fluids (mL): 500 Pathology: none sent Condition: stable Disposition: PACU
--- NOTE | 2024-12-20 08:23 | P.OP_ITS ---
Operative Note Operative Note Date of Service: 12/18/24 Narrative: Date of Service: 12/18/24 Pre-op diagnosis: Left MMT Post-op diagnosis: 1)left mmt 2) left knee OA) Procedure: Left knee partial MM and chondroplasty Implants: none Surgeon: Freddie Montesinos MD Anesthesia: GETA and regional Was an Dowel Pointer used for this Procedure?: Yes Dowel Pointer: none Estimated blood loss (mL): 5 Tourniquet time (min): 26 IV fluids (mL): 500 Pathology: none sent Condition: stable Disposition: PACU Procedure in detail: Patient was brought to the operating room placed supine on the arthroscopic table and prepped and draped in standard sterile fashion. A time-out was called to identify proper site proper procedure proper surgeon and IV antibiotics per weight were administered. I began by exsanguinating the limb and insufflating tourniquet to 300 mm Hg. Then made a standard anterolateral stab incision. The knee was insufflated with saline and 30 degree arthroscope was placed. There was grade 1 fibrillations of the patella and trochlea and the suprapatellar pouch and the gutters were clean. I descended into the medial compartment where I made my medial portal under direct visualization. There was obvious of complex tear of the posterior horn of the medial meniscus. The root was intact and there was grade 1 changes in the tibial plateau. There were G3 and small G4 changes to a portion of the weight-bearing portion of the posterior MFC. There were several large (1-3 mm) loose full thickness chondral fragments adjacent to the meniscal tear. I used a combination of biter, shaver and cautery to remove unstable portions of the meniscus. Approximately 40% of the meniscal volume was removed. I used a shaver to stabilize the chondral fragments. Once the meniscus had been debrided and stabilized and the loose chondral fragments debrided the final pictures were taken. The ACL was examined and found intact and the lateral compartment also was without the need for intervention. I then removed all instrumentation and closed the portals with skin glue. 25 mL of 2% Marcaine wi th epinephrine was injected into the joint and the surrounding soft tissues. Patient was then placed in sterile dressing extubated brought recovery room stable condition. There were no known complications.
== END 2024-12-18 09:51 | disposition home or self-care (01) ==
LOC: HO.SSS 05:50
PROVIDERS: PCP Internal Medicine; Visit Provider Orthopaedic Surgery
PROC: (CPT 29870; principal; 2024-12-18 07:30)
DX: S83.232A Complex tear of medial meniscus, current injury, left knee, initial encounter (principal); M17.12 Unilateral primary osteoarthritis, left knee; M25.562 Pain in left knee; R26.2 Difficulty in walking, not elsewhere classified; M23.42 Loose body in knee, left knee; X58.XXXA Exposure to other specified factors, initial encounter; Y93.9 Activity, unspecified; Y92.9 Unspecified place or not applicable; Y99.9 Unspecified external cause status; M85.80 Other specified disorders of bone density and structure, unspecified site; E55.9 Vitamin D deficiency, unspecified; E78.00 Pure hypercholesterolemia, unspecified; E03.9 Hypothyroidism, unspecified; J45.909 Unspecified asthma, uncomplicated; R06.00 Dyspnea, unspecified; Z88.1 Allergy status to other antibiotic agents; Z88.8 Allergy status to other drugs, medicaments and biological substances; L23.1 Allergic contact dermatitis due to adhesives; Z98.51 Tubal ligation status; Z87.891 Personal history of nicotine dependence
CPT/HCPCS: 29881; J0131; J0165; J0690; J1100; J2003; J2250; J2405; J2704; J2795; J3010

== ENCOUNTER → 2024-12-18 05:50 | Outpatient (BNV) | payer MEDICARE, SELFPAY | PROVIDERS: PCP Internal Medicine; Visit Provider Orthopaedic Surgery | DX: S83.232A Complex tear of medial meniscus, current injury, left knee, initial encounter (principal) | CPT/HCPCS: 29881 ==

== ENCOUNTER 2024-12-24 14:30 | Outpatient (AMB) | payer MEDICARE, SELFPAY ==
--- OUTSIDE RECORDS SUMMARY | 2023-06-28 03:30 | XMS_ITS ---
Author Organization [facility] Address [address] [place] [address] Care Team Providers Care Tool And Cutter Grinder Name Role Phone Wayne HAYES, Kirk Primary Care Provider UnaKing Maloney [phone] REASON FOR VISIT screening Encounters Encounter Location Date Provider Diagnosis [facility] [place] [address] [place] [phone] 06/28/2023 King De Plan Of Treatment No Information Progress Notes * ANNE KAUFMANINEDOB:1960 (64 yo F)Acc No.[id number]:06/28/2023 COLON WITH MAC Patient: JOSHUA POP Provider: Roberto De MD :1960 A ge:62 Y S ex:Female Date:06/28/2023 Address:[facility] [address] [facility] Pcp:Kirk Black MD Subjective: * Chief Complaints: [...] 06/28/2023 Generated for Printi ng/Faxing/eTransmitting on: 1 06:53 PM EDT
--- OUTSIDE RECORDS SUMMARY | 2023-07-17 04:30 | XMS_ITS ---
Author Organization [facility] Address [address] [place] [address] Care Team Providers Care Photolettering Machine Operator Name Role Phone Wayne HAYES, [place] Primary Care Provider Unava ilable King De Unavailable [phone] REASON FOR VISIT screening colon Problems Problem Type SNOMED Code ICD Code Onset Dates Problem Status W/U Status Risk Notes Problem Diverticular disease of colon (957158916) Diverticulosis of large intestine without perforation or abscess without bleeding (K57.30) Active confirmed Encounters Encounter Location Date Provider Diagnosis [facility] [place] [address] [place] [phone] 07/17/2023 King De Encounter for scre ening [...] Notes * ANNE KAUFMANINEDOB:1960 (64 yo F)Acc No.[id number]:07/17/2023 COLON WITH MAC Patient: JOSHUA POP Provider: Roberto De MD :1960 A ge:63 Y S ex:Female Date:07/17/2023 Address:[address] [place], [place] [phone] Pcp:Kirk Black MD Subjective: * Chief Complaints: [...] 4 5378 DIAGNOSTIC COLONOSCOPY, Modifiers: 33 , 69490 UPPER GI ENDOSCOPY, BIOPSY * * The named appointment provid er may or may not be the originator of this progress note, and it is not deemed complete until electronically signed by the appointment provider. Sign off status: Pending * Provider: Roberto De MD Date: 0 07/17/2023 Generated for Rona blackwell/Sonny/eTransmitting on: 1 06:53 PM EDT
--- NOTE | 2024-12-24 14:39 | A.OFFVIS_ITS ---
Intake Visit Reasons: PO LT knee 12/18/24 NE Intake Note: Araceli is a 64 year old female who presents today for a post op appointment for her radah knee partial MM and chondroplasty 12/18/24 NE. Patient reports she is doing well. Having some tightness with bending. Allergies doxycycline Allergy (Severe, Verified 12/24/24 14:42) Hives atorvastatin Adverse Reaction (Intermediate, Verified 12/24/24 14:42) persistent aching in legs bandages Allergy (Severe, Uncoded 12/02/24 09:29) Rash HPI HPI PO LT knee 12/18/24 NE: Details: Ms. Moulton this is a 64-year-old female who presents to the office today status post left knee arthroscopy performed on 12/18/[address] Montesinos for a partial medial meniscectomy and chondroplasty. Patient is overall doing very well. Pain is managed. Feel some tightness with knee flexion. No additional complaints. [facility] Medical History (Updated 12/05/24 @ 08:53 by Kadi Marc RN) Thyroid disease Osteopenia Asthma Acquired hypothyroidism Osteoarthritis of both knees Vitamin D deficiency Multiple nevi Allergic rhinitis Airway hyperreactivity Pure hypercholesterolemia Dyspnea Surgical History History of esophagogastroduodenoscopy (EGD) History of colonoscopy History of tubal ligation Family History Father Stroke Diabetes Hypertension Mother Breast cancer Paternal Aunt Breast cancer Maternal Aunt Colon cancer Social History Housing: House Are you a primary child care supervisor to a significant other at home: No Do you presently have visiting nurse or other home services: No Alcohol intake: current Alcohol intake frequency: a few times a month Comment: counts correct Patient Tobacco Use Status: Former Tobacco user e-Cigarette/Vaping Use: Never Used Second Hand Smoke Exposure: Yes service: No Current occupational status: retired Cognitive needs: No Hearing needs: No Vision needs: No Review of Systems Const All systems reviewed & are unremarkable except as noted in HPI and below Physical Exam Const General: cooperative, healthy appearing and no acute distress Resp Effort & Inspection: normal respiratory effort and able to speak in complete sentences Extrem Other: Left knee incision sites are clean dry and intact. Sutures intact. No surrounding erythema or drainage. No signs of infection. Range of motion 0- 120. NVI. Psych Appearance: grossly normal Mental Status: mental status grossly normal Attitude: cooperative Assessment & Plan Assessment & Plan (1) Tear of medial meniscus of left knee: Code(s): S83.242A - Other tear of medial meniscus, current injury, left knee, initial encounter Category: Medical (2) Osteoarthritis of left knee: Code(s): M17.12 - Unilateral primary osteoarthritis, left knee Category: Medical Qualifiers: Osteoarthritis type: unspecified Qualified Code(s): M17.12 - Unilateral primary osteoarthritis, left knee Plan Ms. Moulton this is a 64-year-old female who presents to the office today status post left knee arthroscopy performed on 12/18/[address] Montesinos for a partial medial meniscectomy and chondroplasty. Patient is overall doing very well. Pain is managed. Feel some tightness with knee flexion. No additional complaints. While in the office today, sutures are removed and Steri-Strips were applied. We did discuss the role of formal physical therapy. However, the patient will resume back to normal activities gradually using pain as her guide. If she begins to plateau or struggles with return to activity she will let me know and I am happy to place a formal physical therapy order. She will follow up PRN, sooner if needed. Coding Level of Care Code Global (97701) Diagnoses Tear of medial meniscus of left knee S83.242A Osteoarthritis of left knee, unspecified osteoarthritis type M17.12 Osteoarthritis type: unspecified
--- OUTSIDE RECORDS SUMMARY | 2024-12-24 18:55 | XMS_ITS | Patient Health Record ---
Author Organization [facility] Address [address] [place] [address] Care Team Providers Care Freight Solicitor Name Role Phone Wayne HAYES, [place] Primary Care Provider UnaKing Maloney [phone] Allergies No Known Allergies Reason For Referral No Information Medications Medication SIG (Take, Route, Frequency, Duration) Notes Start Date End Date Status Levothyroxine Sodium 25 MCG Oral; Duration: 90 Unknown Montelukast Sodium 10 MG TAKE 1 TABLET B Y MOUTH EVERY DAY Oral; Duration: 90 Unknown Multivitamin - 1 tablet Orally Once a day; Duration: 30 day(s) Unknown Rosuvastatin Calcium 5 MG TAKE 1 TABLET BY MOUTH EVERY DAY Oral; Duration: 30 Unknown Problems Problem Type SNOMED Code ICD Code Onset Dates Problem Status W/U Status Risk Notes Problem Colon cancer screening (889405832) Colon cancer screening (Z12.11) Active confirmed Problem Diverticular disease of colon (337586699) Diverticulosis of large intestine without perforation or abscess without bleeding (K57.30) Active confirmed Problem Preprocedural examination (055027598623394) Preprocedural examination (Z01.818) Active confirmed Problem Abnormal UGI series (R93.3) Active confirmed Encounters Encounter Location Date Provider Diagnosis [facility] [address] [place] [id number] 02/05/2024 [place] Plan Of Treatment Future Test Test Name Order Date COLONOSCOPY 02/15/2012 COLONOSCOPY 03/28/2023 UPPER GI ENDOSCOPY 07/13/2023 Insurance Providers Payer Name Payer Address Payer Phone Subscriber Number Group Number Insured Name Patient Relationship to Insured Coverage Start Date Coverage End Date [facility] [address] [place], [place] [id number] [phone] [id number] JOSHUA KAUFMAN Self - patient is the insured Medical (General) History Medical History History ICD Code Denies [place],DM,CVA,renal disease Negative screening colonoscopy in 2012 Hypothyroidism Hyperlipdeimia Asthma Surgical History Surgery Date(Month/Year) Tubal ligation
== END 2024-12-24 14:52 | disposition home or self-care (01) ==
LOC: HO.HOS 14:30
PROVIDERS: PCP Internal Medicine; Visit Provider Physician Assistant
DX: S83.242A Other tear of medial meniscus, current injury, left knee, initial encounter (principal); M17.12 Unilateral primary osteoarthritis, left knee
CPT/HCPCS: 99024

== ENCOUNTER → 2024-12-24 14:30 | Outpatient (BNVA) | payer MEDICARE, SELFPAY | PROVIDERS: PCP Internal Medicine; Visit Provider Physician Assistant | DX: S83.242D Other tear of medial meniscus, current injury, left knee, subsequent encounter (principal); M17.12 Unilateral primary osteoarthritis, left knee; Z98.890 Other specified postprocedural states | CPT/HCPCS: 99212 ==